=== PATIENT | female | born 1945 | race Caucasian/White ===

== ENCOUNTER 2017-12-14 16:10 | Inpatient (IN) | payer MEDICARE ==
[2017-12-14] MEDS ORDERED: ONDANSETRON 4 MG/2 ML VIAL IVP STA (16:39)
[2017-12-14] MEDS ORDERED: HYDROmorphone 2 MG/ML 1 ML SYRINGE IVP STA (16:39)
[2017-12-14] MEDS ORDERED: SODIUM CHLORIDE 0.9% 1,000 ML IV STA ×2 (16:39→19:48)
[2017-12-14] MEDS ORDERED: ACETAMINOPHEN IV (For NPO) 1,000 MG in EMPTY BAG 1 BAG IVPB STA (16:44)
--- NOTE | 2017-12-14 16:47 | ED ---
General Adult HPI - General Chief complaint: Back Pain/Injury Stated complaint: Back Pain Time Seen by Provider: 12/14/17 16:30 Source: patient, family, RN notes reviewed, old records reviewed Mode of arrival: wheelchair Limitations: no limitations - History of Present Illness Initial comments: Patient's a 72-year-old female who presents emergency room today with a chief complaint of back pain radiating around to the abdomen. She states that it started earlier today. She does admit that last night she had increased urinary frequency and pressure. She describes it as a sharp pain. Currently rates it 08/14. Does admit to some symptoms of nausea vomiting. States this is different from pain that she's had in the past. Patient denies any other complaints or symptoms. Patient denies any recent fever, chills, shortness of breath, chest pain, back pain, abdominal pain, nausea or vomiting, numbness or tingling, dysuria or hematuria, constipation or diarrhea, headaches or visual changes, or any other complaints. - Related Data Previous Rx's Medication Instructions Recorded ALPRAZolam [Xanax] 0.25 mg PO TID PRN tab 12/01/17 Aspirin 325 mg PO DAILY tab 12/01/17 Lisinopril [Zestril] 20 mg PO DAILY #30 tab 12/01/17 amLODIPine [Norvasc] 5 mg PO DAILY #30 tab 12/01/17 Amoxic-Pot Clav 875-125Mg 1 tab PO Q12HR #14 tablet 12/18/17 [Augmentin 875-125] glipiZIDE [Glucotrol] 5 mg PO AC-BID #60 tab 12/18/17 Allergies Allergy/AdvReac Type Severity Reaction Status Date / Time No Known Allergies Allergy Verified 12/14/17 16:29 Review of Systems ROS Statement: Those systems with pertinent positive or pertinent negative responses have been documented in the HPI. ROS Other: All systems not noted in ROS Statement are negative. Past Medical History Past Medical History: Diabetes Mellitus, Osteoarthritis (OA) Additional Past Medical History / Comment(s): NIDDM type II, arthritis bilateral knees. History of Any Multi-Drug Resistant Organisms: None Reported Past Surgical History: Cholecystectomy Additional Past Surgical History / Comment(s): Bilateral cataract removals with lens implants. Past Anesthesia/Blood Transfusion Reactions: No Reported Reaction Past Psychological History: No Psychological Hx Reported Smoking Status: Never smoker Past Alcohol Use History: None Reported Past Drug Use History: None Reported - Past Family History Father Family Medical History: Vascular Disorder Additional Family Medical History / Comment(s): Father from a ruptured cerebral aneurysm in his 80s. Mother Family Medical History: CVA/TIA Additional Family Medical History / Comment(s): Mother is 94 yrs old. Brother(s) Family Medical History: No Reported History Sister(s) Family Medical History: No Reported History Daughter(s) Family Medical History: Diabetes Mellitus Son(s) History Unknown: Yes (Diverticular disease) General Exam - General Exam Comments Initial Comments: General: The patient is awake and alert, in moderate distress. Eye: Pupils are equal, round and reactive to light, extra-ocular movements are intact. No nystagmus. There is normal conjunctiva bilaterally. No signs of icterus. Ears, nose, mouth and throat: There are moist mucous membranes and no oral lesions. Neck: The neck is supple, there is no tenderness or JVD. Cardiovascular: There is a regular rate and rhythm. No murmur, rub or gallop is appreciated. Respiratory: Lungs are clear to auscultation, respirations are non-labored, breath sounds are equal. No wheezes, stridor, rales, or rhonchi. Gastrointestinal: Soft, non-distended. Tender palpation in the right lower quadrant and epigastric. Tender right CVA. No rebound tenderness. No guarding. Musculoskeletal: Normal ROM, no tenderness. Strength 5/5. Sensation intact. Pulses equal bilaterally 2+. Neurological: A&O x 3. CN II-XII intact, There are no obvious motor or sensory deficits. Coordination appears grossly intact. Speech is normal. Skin: Skin is warm and dry and no rashes or lesions are noted. Psychiatric: Cooperative, appropriate mood & affect, normal judgment. Limitations: no limitations Course Vital Signs 12/14/17 12/14/17 12/14/17 16:20 17:23 18:30 Temperature 101.0 F H 99.0 F Pulse Rate 118 H 102 H 99 Respiratory 24 22 20 Rate Blood Pressure 134/75 146/64 146/55 Blood Pressure [Left Arm] O2 Sat by Pulse 100 97 99 Oximetry 12/14/17 12/14/17 12/14/17 19:39 20:30 21:12 Temperature 98.0 F 98.9 F 97.9 F Pulse Rate 98 98 Respiratory 20 20 16 Rate Blood Pressure 128/60 130/59 Blood Pressure 112/55 [Left Arm] O2 Sat by Pulse 98 97 97 Oximetry 12/14/17 12/14/17 21:30 21:42 Temperature 98.6 F Pulse Rate 92 96 Respiratory 20 Rate Blood Pressure 128/63 Blood Pressure [Left Arm] O2 Sat by Pulse 97 Oximetry EKG Findings - EKG Comments: EKG Findings:: EKG performed at 1824: Shows normal sinus rhythm at 99 bpm with occasional PVCs. RI interval 198. QRS 72. QT/QTC 354/454. No acute ST changes. Medical Decision Making - Medical Decision Making Patient labs reviewed does show 17,000 white count with elevated lactic acid. Elevation of liver enzymes, alk phos and total bilirubin. Patient's CT of the abdomen and pelvis with contrast revealing a dilated common bile duct. Patient does have history of cholecystectomy. Patient will be admitted and started on IV antibiotics. - Lab Data Result diagrams: 12/18/17 08:50 12/18/17 08:50 Lab Results 12/14/17 12/14/17 12/14/17 Range/Units 17:05 17:05 17:05 WBC 17.7 H (3.8-10.6) k/uL RBC 5.05 (3.80-5.40) m/uL Hgb 14.4 (11.4-16.0) gm/dL Hct 45.6 (34.0-46.0) % MCV 90.5 (80.0-100.0) fL MCH 28.5 (25.0-35.0) pg MCHC 31.5 (31.0-37.0) g/dL RDW 13.1 (11.5-15.5) % Plt Count 231 (150-450) k/uL Neutrophils % 94 % Lymphocytes % 4 % Monocytes % 1 % Eosinophils % 1 % Basophils % 0 % Neutrophils # 16.6 H (1.3-7.7) k/uL Lymphocytes # 0.7 L (1.0-4.8) k/uL Monocytes # 0.3 (0-1.0) k/uL Eosinophils # 0.2 (0-0.7) k/uL Basophils # 0.1 (0-0.2) k/uL PT (9.0-12.0) sec INR (<1.2) APTT (22.0-30.0) sec Sodium 138 (137-145) mmol/L Potassium 3.9 (3.5-5.1) mmol/L Chloride 101 (98-107) mmol/L Carbon Dioxide 22 (22-30) mmol/L Anion Gap 15 mmol/L BUN 13 (7-17) mg/dL Creatinine 0.70 (0.52-1.04) mg/dL Est GFR (MDRD) Af Amer >60 (>60 ml/min/1.73 sqM) Est GFR (MDRD) Non-Af >60 (>60 ml/min/1.73 sqM) Glucose 238 H (74-99) mg/dL Lactic Ac Sepsis Rflx Plasma Lactic Acid Joe 4.2 H* (0.7-2.0) mmol/L Calcium 10.0 (8.4-10.2) mg/dL Magnesium (1.6-2.3) mg/dL Total Bilirubin 5.6 H (0.2-1.3) mg/dL Conjugated Bilirubin (0.0-0.3) mg/dL Unconjugated Bilirubin (0.0-1.1) mg/dL Delta Bilirubin (0.0-0.2) mg/dL AST 241 H (14-36) U/L ALT 254 H (9-52) U/L Alkaline Phosphatase 177 H (38-126) U/L Total Protein 7.1 (6.3-8.2) g/dL Albumin 4.1 (3.5-5.0) g/dL Urine Color Urine Appearance (Clear) Urine pH (5.0-8.0) Ur Specific [place] (1.001-1.035) Urine Protein (Negative) Urine Glucose (UA) (Negative) Urine Ketones (Negative) Urine Blood (Negative) Urine Nitrite (Negative) Urine Bilirubin (Negative) Urine Urobilinogen (<2.0) mg/dL Ur Leukocyte Esterase (Negative) Urine RBC (0-5) /hpf Urine WBC (0-5) /hpf Ur Squamous Epith Cells (0-4) /hpf Urine Mucus (None) /hpf 12/14/17 12/14/17 12/14/17 Range/Units 17:05 17:05 17:05 WBC (3.8-10.6) k/uL RBC (3.80-5.40) m/uL Hgb (11.4-16.0) gm/dL Hct (34.0-46.0) % MCV (80.0-100.0) fL MCH (25.0-35.0) pg MCHC (31.0-37.0) g/dL RDW (11.5-15.5) % Plt Count (150-450) k/uL Neutrophils % % Lymphocytes % % Monocytes % % Eosinophils % % Basophils % % Neutrophils # (1.3-7.7) k/uL Lymphocytes # (1.0-4.8) k/uL Monocytes # (0-1.0) k/uL Eosinophils # (0-0.7) k/uL Basophils # (0-0.2) k/uL PT 12.3 H (9.0-12.0) sec INR 1.3 H (<1.2) APTT 22.1 (22.0-30.0) sec Sodium (137-145) mmol/L Potassium (3.5-5.1) mmol/L Chloride (98-107) mmol/L Carbon Dioxide (22-30) mmol/L Anion Gap mmol/L BUN (7-17) mg/dL Creatinine (0.52-1.04) mg/dL Est GFR (MDRD) Af Amer (>60 ml/min/1.73 sqM) Est GFR (MDRD) Non-Af (>60 ml/min/1.73 sqM) Glucose (74-99) mg/dL Lactic Ac Sepsis Rflx Plasma Lactic Acid Joe (0.7-2.0) mmol/L Calcium (8.4-10.2) mg/dL Magnesium 1.1 L (1.6-2.3) mg/dL Total Bilirubin (0.2-1.3) mg/dL Conjugated Bilirubin (0.0-0.3) mg/dL Unconjugated Bilirubin (0.0-1.1) mg/dL Delta Bilirubin (0.0-0.2) mg/dL AST (14-36) U/L ALT (9-52) U/L Alkaline Phosphatase (38-126) U/L Total Protein (6.3-8.2) g/dL Albumin (3.5-5.0) g/dL Urine Color Dark Yellow Urine Appearance Clear (Clear) Urine pH 6.0 (5.0-8.0) Ur Specific [place] 1.025 (1.001-1.035) Urine Protein 1+ H (Negative) Urine Glucose (UA) 4+ H (Negative) Urine Ketones 1+ H (Negative) Urine Blood Trace H (Negative) Urine Nitrite Negative (Negative) Urine Bilirubin 2+ H (Negative) Urine Urobilinogen 4.0 (<2.0) mg/dL Ur Leukocyte Esterase Negative (Negative) Urine RBC 1 (0-5) /hpf Urine WBC 3 (0-5) /hpf Ur Squamous Epith Cells 4 (0-4) /hpf Urine Mucus Rare H (None) /hpf 12/14/17 12/14/17 Range/Units 17:35 19:30 WBC (3.8-10.6) k/uL RBC (3.80-5.40) m/uL Hgb (11.4-16.0) gm/dL Hct (34.0-46.0) % MCV (80.0-100.0) fL MCH (25.0-35.0) pg MCHC (31.0-37.0) g/dL RDW (11.5-15.5) % Plt Count (150-450) k/uL Neutrophils % % Lymphocytes % % Monocytes % % Eosinophils % % Basophils % % Neutrophils # (1.3-7.7) k/uL Lymphocytes # (1.0-4.8) k/uL Monocytes # (0-1.0) k/uL Eosinophils # (0-0.7) k/uL Basophils # (0-0.2) k/uL PT (9.0-12.0) sec INR (<1.2) APTT (22.0-30.0) sec Sodium (137-145) mmol/L Potassium (3.5-5.1) mmol/L Chloride (98-107) mmol/L Carbon Dioxide (22-30) mmol/L Anion Gap mmol/L BUN (7-17) mg/dL Creatinine (0.52-1.04) mg/dL Est GFR (MDRD) Af Amer (>60 ml/min/1.73 sqM) Est GFR (MDRD) Non-Af (>60 ml/min/1.73 sqM) Glucose (74-99) mg/dL Lactic Ac Sepsis Rflx Y Plasma Lactic Acid Joe (0.7-2.0) mmol/L Calcium (8.4-10.2) mg/dL Magnesium (1.6-2.3) mg/dL Total Bilirubin 5.6 H (0.2-1.3) mg/dL Conjugated Bilirubin 2.5 H (0.0-0.3) mg/dL Unconjugated Bilirubin 1.7 H (0.0-1.1) mg/dL Delta Bilirubin 1.4 H (0.0-0.2) mg/dL AST (14-36) U/L ALT (9-52) U/L Alkaline Phosphatase (38-126) U/L Total Protein (6.3-8.2) g/dL Albumin (3.5-5.0) g/dL Urine Color Urine Appearance (Clear) Urine pH (5.0-8.0) Ur Specific [place] (1.001-1.035) Urine Protein (Negative) Urine Glucose (UA) (Negative) Urine Ketones (Negative) Urine Blood (Negative) Urine Nitrite (Negative) Urine Bilirubin (Negative) Urine Urobilinogen (<2.0) mg/dL Ur Leukocyte Esterase (Negative) Urine RBC (0-5) /hpf Urine WBC (0-5) /hpf Ur Squamous Epith Cells (0-4) /hpf Urine Mucus (None) /hpf Disposition Clinical Impression: Dilated bile duct, Ascending cholangitis, Sepsis Disposition: ADMITTED IP TO THIS HOSP Condition: Good Time of Disposition: 19:34
[2017-12-14 17:18] LABS: Basophils # (A) 0.1 k/uL (0-0.2); Basophils % (A) 0 %; Eosinophils # (A) 0.2 k/uL (0-0.7); Eosinophils % (A) 1 %; HCT 45.6 % (34.0-46.0); HGB 14.4 gm/dL (11.4-16.0); Lymphocytes # (A) 0.7 k/uL (1.0-4.8); Lymphocytes % (A) 4 %; MCH 28.5 pg (25.0-35.0); MCHC 31.5 g/dL (31.0-37.0); MCV 90.5 fL (80.0-100.0); Mean Platelet Volume 7.3; Monocytes # (A) 0.3 k/uL (0-1.0); Monocytes % (A) 1 %; Neutrophils # (A) 16.6 k/uL (1.3-7.7); Neutrophils % (A) 94 %; Platelet Count 231 k/uL (150-450); RBC 5.05 m/uL (3.80-5.40); RDW 13.1 % (11.5-15.5); WBC 17.7 k/uL (3.8-10.6)
[2017-12-14 17:20] LABS: Appearance,Urine Clear (Clear); Bilirubin,Urine 2+ (Negative); Blood,Urine Trace (Negative); Color,Urine Dark Yellow; Glucose,Urine (UA) 4+ (Negative); Ketones,Urine 1+ (Negative); Leukocyte Esterase,Urine Negative (Negative); Mucus,Urine Rare /hpf; Nitrite,Urine Negative (Negative); Protein,Urine 1+ (Negative); RBC,Urine 1 /hpf (0-5); Specific Gravity,Urine 1.025 (1.001-1.035); Squamous Epithelial Cell,Urine 4 /hpf (0-4); WBC,Urine 3 /hpf (0-5)
[2017-12-14] MEDS ORDERED: RX INFO: IV CONTRAST WAS GIVEN 1 EACH MISC MISCELLANE PRN (17:27)
[2017-12-14 17:28] LABS: INR 1.3 (<1.2); Partial Thromboplastin Time 22.1 sec (22.0-30.0); Prothrombin Time 12.3 sec (9.0-12.0)
[2017-12-14 17:29] LABS: ALT 254 U/L (9-52); AST 241 U/L (14-36); Albumin 4.1 g/dL (3.5-5.0); Alkaline Phosphatase 177 U/L (38-126); Anion Gap 15 mmol/L; Blood Urea Nitrogen 13 mg/dL (7-17); Carbon Dioxide 22 mmol/L (22-30); Chloride 101 mmol/L (98-107); Glucose 238 mg/dL (74-99); Potassium 3.9 mmol/L (3.5-5.1); Sodium 138 mmol/L (137-145); Total Bilirubin 5.6 mg/dL (0.2-1.3); Total Protein 7.1 g/dL (6.3-8.2)
--- NOTE | 2017-12-14 18:54 | CT ---
EXAMINATION TYPE: CT abdomen pelvis w con DATE OF EXAM: 12/14/2017 COMPARISON: NONE INDICATION: Patient complains of RUQ pain. DLP: 828.3 mGycm, Automated exposure control for dose reduction was used. CONTRAST: 100 mL of Omnipaque 300. Study performed without Oral Contrast TECHNIQUE: Axial images were obtained from above the diaphragm to the pubic rami in the axial plane a t 5 mm thick sections. Reconstructed images are reviewed on the computer in the coronal plane. FINDINGS: Limited CT sections are obtained the lung bases. The lung bases are clear. CT ABDOMEN: Liver: Normal Spleen: Normal Pancreas: Mildly atrophic. Adrenal glands: The adrenal glands are normal. Gallbladder: Surgically absent. The pancreatic duct is dilated at the head of the pancreas and measur es 1.4 cm. Normal less than 1.0 cm. No underlying mass is identified. Pancreatic duct appears normal. Kidneys: No masses are evident. No hydronephrosis is present. No cysts are present. Delayed images were obtained through the kidneys, which remain unremarkable. Aorta: Vascular calcification is within the aorta. Inferior vena cava: Normal. CT PELVIS: Loops of bowel within the abdomen and pelvis are normal. There are loops of bowel which are incom pletely distended or lack oral contrast limiting their evaluation. Appendix: Normal as visualized. Urinary bladder: Normal. Genitourinary structures: Uterus is normal. Adnexal regions are normal. No free fluid is within the p jesse. Osseous structures: No suspicious lytic or sclerotic lesions. Facet degenerative changes are within t he lumbar spine. IMPRESSIONS: 1. Prominent common bile duct into the head of the pancreas. No underlying mass is identified. Consi edouard ERCP for additional evaluation. 2. CT abdomen pelvis otherwise appears unremarkable.
[2017-12-14] MEDS ORDERED: PIPERACILLIN-TAZOBACTAM 3.375 GM in DEXTROSE/WATER 1 50ML.BAG IVPB STA (19:19)
[2017-12-14] MEDS ORDERED: VANCOMYCIN IV PER PHARMACY 1 EACH MISC MISCELLANE PRN (19:43)
[2017-12-14] MEDS ORDERED: VANCOMYCIN 1,500 MG in SODIUM CHLORIDE 0.9% 250 ML IVPB STA (19:43)
[2017-12-14 19:45] LABS: Bilirubin, Conjugated 2.5 mg/dL (0.0-0.3); Bilirubin, Delta 1.4 mg/dL (0.0-0.2); Bilirubin,Unconjugated 1.7 mg/dL (0.0-1.1); Total Bilirubin 5.6 mg/dL (0.2-1.3)
[2017-12-14] MEDS ORDERED: HYDROmorphone 0.5 MG/0.5 ML SYRINGE IVP PRN (20:06)
[2017-12-14] MEDS ORDERED: NALOXONE 0.4 MG/ML 1 ML VIAL IV PRN (20:06)
[2017-12-14] MEDS ORDERED: SODIUM CHLORIDE 0.9% 1,000 ML IV SCH (20:15)
--- NOTE | 2017-12-14 20:17 | ED ---
Medical Decision Making - Medical Decision Making 72-year-old female presenting with fever, tachycardia, epigastric and right flank pain. Patient is noted to have a lactic acidosis 4.3, elevated white blood cell count 17.7, total bili is elevated along with AST, ALT, and alkaline phosphatase. CT shows a prominent biliary duct and pancreatic duct at 1.4 cm. Patient is started on broad-spectrum antibiotics including Zosyn and vancomycin. Case is discussed with Dr. Abdullahi, from gastroenterology, there is concern for ascending cholangitis. Patient will likely undergo ERCP in the morning. Case also discussed with pulmonary locomotive electrician Dr. Rosado will accept admission to the ICU for concern for decompensation. - Lab Data Result diagrams: 12/14/17 17:05 12/14/17 17:05 Lab Results 12/14/17 12/14/17 12/14/17 Range/Units 17:05 17:05 17:05 WBC 17.7 H (3.8-10.6) k/uL RBC 5.05 (3.80-5.40) m/uL Hgb 14.4 (11.4-16.0) gm/dL Hct 45.6 (34.0-46.0) % MCV 90.5 (80.0-100.0) fL MCH 28.5 (25.0-35.0) pg MCHC 31.5 (31.0-37.0) g/dL RDW 13.1 (11.5-15.5) % Plt Count 231 (150-450) k/uL Neutrophils % 94 % Lymphocytes % 4 % Monocytes % 1 % Eosinophils % 1 % Basophils % 0 % Neutrophils # 16.6 H (1.3-7.7) k/uL Lymphocytes # 0.7 L (1.0-4.8) k/uL Monocytes # 0.3 (0-1.0) k/uL Eosinophils # 0.2 (0-0.7) k/uL Basophils # 0.1 (0-0.2) k/uL PT (9.0-12.0) sec INR (<1.2) APTT (22.0-30.0) sec Sodium 138 (137-145) mmol/L Potassium 3.9 (3.5-5.1) mmol/L Chloride 101 (98-107) mmol/L Carbon Dioxide 22 (22-30) mmol/L Anion Gap 15 mmol/L BUN 13 (7-17) mg/dL Creatinine 0.70 (0.52-1.04) mg/dL Est GFR (MDRD) Af Amer >60 (>60 ml/min/1.73 sqM) Est GFR (MDRD) Non-Af >60 (>60 ml/min/1.73 sqM) Glucose 238 H (74-99) mg/dL Plasma Lactic Acid Joe 4.2 H* (0.7-2.0) mmol/L Calcium 10.0 (8.4-10.2) mg/dL Magnesium (1.6-2.3) mg/dL Total Bilirubin 5.6 H (0.2-1.3) mg/dL Conjugated Bilirubin (0.0-0.3) mg/dL Unconjugated Bilirubin (0.0-1.1) mg/dL Delta Bilirubin (0.0-0.2) mg/dL AST 241 H (14-36) U/L ALT 254 H (9-52) U/L Alkaline Phosphatase 177 H (38-126) U/L Total Protein 7.1 (6.3-8.2) g/dL Albumin 4.1 (3.5-5.0) g/dL Urine Color Urine Appearance (Clear) Urine pH (5.0-8.0) Ur Specific [place] (1.001-1.035) Urine Protein (Negative) Urine Glucose (UA) (Negative) Urine Ketones (Negative) Urine Blood (Negative) Urine Nitrite (Negative) Urine Bilirubin (Negative) Urine Urobilinogen (<2.0) mg/dL Ur Leukocyte Esterase (Negative) Urine RBC (0-5) /hpf Urine WBC (0-5) /hpf Ur Squamous Epith Cells (0-4) /hpf Urine Mucus (None) /hpf 12/14/17 12/14/17 12/14/17 Range/Units 17:05 17:05 17:05 WBC (3.8-10.6) k/uL RBC (3.80-5.40) m/uL Hgb (11.4-16.0) gm/dL Hct (34.0-46.0) % MCV (80.0-100.0) fL MCH (25.0-35.0) pg MCHC (31.0-37.0) g/dL RDW (11.5-15.5) % Plt Count (150-450) k/uL Neutrophils % % Lymphocytes % % Monocytes % % Eosinophils % % Basophils % % Neutrophils # (1.3-7.7) k/uL Lymphocytes # (1.0-4.8) k/uL Monocytes # (0-1.0) k/uL Eosinophils # (0-0.7) k/uL Basophils # (0-0.2) k/uL PT 12.3 H (9.0-12.0) sec INR 1.3 H (<1.2) APTT 22.1 (22.0-30.0) sec Sodium (137-145) mmol/L Potassium (3.5-5.1) mmol/L Chloride (98-107) mmol/L Carbon Dioxide (22-30) mmol/L Anion Gap mmol/L BUN (7-17) mg/dL Creatinine (0.52-1.04) mg/dL Est GFR (MDRD) Af Amer (>60 ml/min/1.73 sqM) Est GFR (MDRD) Non-Af (>60 ml/min/1.73 sqM) Glucose (74-99) mg/dL Plasma Lactic Acid Joe (0.7-2.0) mmol/L Calcium (8.4-10.2) mg/dL Magnesium 1.1 L (1.6-2.3) mg/dL Total Bilirubin (0.2-1.3) mg/dL Conjugated Bilirubin (0.0-0.3) mg/dL Unconjugated Bilirubin (0.0-1.1) mg/dL Delta Bilirubin (0.0-0.2) mg/dL AST (14-36) U/L ALT (9-52) U/L Alkaline Phosphatase (38-126) U/L Total Protein (6.3-8.2) g/dL Albumin (3.5-5.0) g/dL Urine Color Dark Yellow Urine Appearance Clear (Clear) Urine pH 6.0 (5.0-8.0) Ur Specific [place] 1.025 (1.001-1.035) Urine Protein 1+ H (Negative) Urine Glucose (UA) 4+ H (Negative) Urine Ketones 1+ H (Negative) Urine Blood Trace H (Negative) Urine Nitrite Negative (Negative) Urine Bilirubin 2+ H (Negative) Urine Urobilinogen 4.0 (<2.0) mg/dL Ur Leukocyte Esterase Negative (Negative) Urine RBC 1 (0-5) /hpf Urine WBC 3 (0-5) /hpf Ur Squamous Epith Cells 4 (0-4) /hpf Urine Mucus Rare H (None) /hpf 12/14/17 Range/Units 19:30 WBC (3.8-10.6) k/uL RBC (3.80-5.40) m/uL Hgb (11.4-16.0) gm/dL Hct (34.0-46.0) % MCV (80.0-100.0) fL MCH (25.0-35.0) pg MCHC (31.0-37.0) g/dL RDW (11.5-15.5) % Plt Count (150-450) k/uL Neutrophils % % Lymphocytes % % Monocytes % % Eosinophils % % Basophils % % Neutrophils # (1.3-7.7) k/uL Lymphocytes # (1.0-4.8) k/uL Monocytes # (0-1.0) k/uL Eosinophils # (0-0.7) k/uL Basophils # (0-0.2) k/uL PT (9.0-12.0) sec INR (<1.2) APTT (22.0-30.0) sec Sodium (137-145) mmol/L Potassium (3.5-5.1) mmol/L Chloride (98-107) mmol/L Carbon Dioxide (22-30) mmol/L Anion Gap mmol/L BUN (7-17) mg/dL Creatinine (0.52-1.04) mg/dL Est GFR (MDRD) Af Amer (>60 ml/min/1.73 sqM) Est GFR (MDRD) Non-Af (>60 ml/min/1.73 sqM) Glucose (74-99) mg/dL Plasma Lactic Acid Joe (0.7-2.0) mmol/L Calcium (8.4-10.2) mg/dL Magnesium (1.6-2.3) mg/dL Total Bilirubin 5.6 H (0.2-1.3) mg/dL Conjugated Bilirubin 2.5 H (0.0-0.3) mg/dL Unconjugated Bilirubin 1.7 H (0.0-1.1) mg/dL Delta Bilirubin 1.4 H (0.0-0.2) mg/dL AST (14-36) U/L ALT (9-52) U/L Alkaline Phosphatase (38-126) U/L Total Protein (6.3-8.2) g/dL Albumin (3.5-5.0) g/dL Urine Color Urine Appearance (Clear) Urine pH (5.0-8.0) Ur Specific [place] (1.001-1.035) Urine Protein (Negative) Urine Glucose (UA) (Negative) Urine Ketones (Negative) Urine Blood (Negative) Urine Nitrite (Negative) Urine Bilirubin (Negative) Urine Urobilinogen (<2.0) mg/dL Ur Leukocyte Esterase (Negative) Urine RBC (0-5) /hpf Urine WBC (0-5) /hpf Ur Squamous Epith Cells (0-4) /hpf Urine Mucus (None) /hpf Critical Care Time Critical Care Time: Yes Total Critical Care Time: 35 Disposition Clinical Impression: Dilated bile duct, Ascending cholangitis, Sepsis Disposition: ADMITTED IP TO THIS [facility] Condition: Serious Referrals: Dallas Durán MD [Primary Care Provider] - 1-2 days Decision to Admit Reason: Admit from EC Decision Date: 12/14/17 Decision Time: 20:16
[2017-12-14 21:48] LABS: Glucose,Whole Blood 248 mg/dL (75-99)
[2017-12-14 22:30] VITALS: BMI 28.8
[2017-12-15 02:18] LABS: Glucose,Whole Blood 222 mg/dL (75-99)
[2017-12-15] MEDS ORDERED: ALPRAZolam 0.25 MG TAB PO PRN (03:10)
[2017-12-15] MEDS: PIPERACILLIN-TAZOBACTAM 3.375 GM in DEXTROSE/WATER 1 50ML.BAG IVPB SCH ×3 (04:24→21:06)
[2017-12-15 04:39] LABS: Basophils # (A) 0.1 k/uL (0-0.2); Basophils % (A) 0 %; Eosinophils # (A) 0.1 k/uL (0-0.7); Eosinophils % (A) 0 %; HCT 38.8 % (34.0-46.0); HGB 12.6 gm/dL (11.4-16.0); Lymphocytes # (A) 1.2 k/uL (1.0-4.8); Lymphocytes % (A) 7 %; MCHC 32.6 g/dL (31.0-37.0); MCV 88.9 fL (80.0-100.0); Mean Platelet Volume 6.9; Monocytes # (A) 0.5 k/uL (0-1.0); Monocytes % (A) 3 %; Neutrophils # (A) 14.6 k/uL (1.3-7.7); Neutrophils % (A) 88 %; Platelet Count 197 k/uL (150-450); RBC 4.36 m/uL (3.80-5.40); RDW 13.2 % (11.5-15.5); WBC 16.5 k/uL (3.8-10.6)
[2017-12-15 04:47] LABS: INR 1.4 (<1.2); Prothrombin Time 13.1 sec (9.0-12.0)
[2017-12-15 04:48] LABS: ALT 189 U/L (9-52); AST 123 U/L (14-36); Albumin 3.3 g/dL (3.5-5.0); Alkaline Phosphatase 114 U/L (38-126); Anion Gap 13 mmol/L; Blood Urea Nitrogen 14 mg/dL (7-17); Calcium 8.7 mg/dL (8.4-10.2); Carbon Dioxide 23 mmol/L (22-30); Chloride 104 mmol/L (98-107); Glucose 201 mg/dL (74-99); Magnesium 1.3 mg/dL (1.6-2.3); Phosphorus 4.6 mg/dL (2.5-4.5); Potassium 3.7 mmol/L (3.5-5.1); Sodium 140 mmol/L (137-145); Total Bilirubin 4.8 mg/dL (0.2-1.3)
[2017-12-15] MEDS ORDERED: Potassium Replacement Protocol 1 EACH MISC MISCELLANE PRN (05:16)
[2017-12-15] MEDS ORDERED: Magnesium Replacement Protocol 1 EACH MISC MISCELLANE PRN (05:16)
[2017-12-15] MEDS ORDERED: POTASSIUM CHLORIDE ER 20 MEQ TAB.ER PO SCH ×2 (06:00→23:00)
[2017-12-15] MEDS: MAGNESIUM SULFATE-D5W PMX 1 GM in DEXTROSE/WATER 1 100ML.BAG IVPB SCH ×5 (06:05→23:48)
--- NOTE | 2017-12-15 07:26 | XR ---
EXAMINATION TYPE: XR chest 1V DATE OF EXAM: 12/15/2017 HISTORY: ICU Admission. REFERENCE: Previous study dated 11/30/2017. FINDINGS: The heart is mildly enlarged. The lungs are clear. Pleural spaces are clear. IMPRESSION: MILD CARDIOMEGALY.
[2017-12-15 07:27] LABS: Glucose,Whole Blood 166 mg/dL (75-99)
[2017-12-15] MEDS: INSULIN ASPART 100 UNIT/ML 1 ML 10 ML VIAL SQ SCH ×4 (09:04→21:06)
[2017-12-15] MEDS: ASPIRIN 325 MG TAB PO SCH (09:24)
[2017-12-15] MEDS: amLODIPine 5 MG TAB PO SCH (09:24)
[2017-12-15] MEDS: FAMOTIDINE 20 MG TAB PO SCH ×2 (09:24→20:25)
[2017-12-15] MEDS ORDERED: PHYTONADIONE ORAL 5 MG/5 ML ORAL.SYRG PO STA (09:27)
--- NOTE | 2017-12-15 09:29 | CONS ---
CONSULTATION DATE OF CONSULTATION: December 15, 2017. REQUESTING PHYSICIAN: Dr. Durán. REASON FOR CONSULTATION: Abdominal pain, elevated LFTs. HISTORY OF PRESENT ILLNESS: The patient is a 72-year-old pleasant white female admitted to the hospital when she presented with acute onset of severe epigastric and right flank pain that started yesterday afternoon. The pain continued to progressively get worse and became nauseated, came to the emergency room and subsequently admitted to the hospital admitted to the intensive care unit. Apparently while in the ER, she was tachycardic, somewhat hypotensive. She has a remote history of cholecystectomy approximately 20 years ago for symptomatic gallstones. In the ER, she was noted to have leukocytosis as well as lactic acidosis and elevated LFTs as well as bilirubin up to 5.3. She did have a CT of the abdomen and pelvis done that showed dilated common bile duct as well as pancreatic duct measuring 1.4 cm in diameter, but no obvious stones identified. Because of the suspicion for ascending cholangitis, the patient was started on broad-spectrum antibiotics with Zosyn and vancomycin. She was admitted to the intensive care unit and this morning feels much better. In fact, the abdominal pain has completely resolved. She has no nausea, vomiting. No further episodes of fever. PAST MEDICAL HISTORY: Significant for diabetes mellitus, hypertension, hyperlipidemia. MEDICATIONS AT HOME: Include Xanax, Lipitor, aspirin, Zestril, Norvasc, metformin. ALLERGIES: No known drug allergies. SOCIAL HISTORY: No smoking or alcohol use. FAMILY HISTORY: Unremarkable. PAST SURGICAL HISTORY: Cholecystectomy 20 years ago for symptomatic gallstones. REVIEW OF SYSTEMS: Cardiopulmonary: Denies any chest pain, shortness of breath. Genitourinary: No dysuria or hematuria. Musculoskeletal unremarkable. Skin unremarkable. Endocrine: Unremarkable. Psychiatric: Unremarkable. Neurological: Unremarkable. ENT/Vision: Unremarkable. Constitutional: No recent weight loss. No fever, chills or night sweats. PHYSICAL EXAMINATION: She appears comfortable. No apparent distress. VITAL SIGNS: Stable. Blood pressure is 110-82, pulse is 66, afebrile. T-max was 100.3. HEENT examination unremarkable. Conjunctivae pink. Sclerae are slightly icteric. Oral cavity no lesions. Neck: No jugular venous distention or lymph node enlargement. Chest was clear to auscultation. HEART: Regular rate and rhythm. ABDOMEN: Soft, nontender, nondistended. Liver and spleen not palpable. Bowel sounds are positive. No organomegaly. Extremities: No pedal edema. Skin no rashes. Neuro she is alert and oriented x3. No focal deficits. LABS: Done yesterday WBC was 17.7 and today is 16.5. PT is 13.1 and an INR of 1.4. T-bili was 5.6 today, it is down to 4.8, AST 241, ALT 254, alkaline phosphatase 177. Today AST is down to 123, ALT is 189, and alkaline phosphatase is 114. Blood cultures are pending. IMPRESSION: The patient presents to hospital with acute onset of severe right upper quadrant epigastric pain radiating to the back and right flank pain since yesterday associated with some nausea, vomiting, and noted to have fever chills with leukocytosis and elevated LFTs as well as bilirubin all indicative of ascending cholangitis, possibly from retained common bile duct stone. CT of the abdomen showed evidence of dilated common bile duct and pancreatic duct, but no obvious stones noted. The patient is status post gallbladder surgery 20 years ago for symptomatic gallstones. She is presently on Zosyn and vancomycin and clinically doing very stable. RECOMMENDATIONS: 1. Continue broad-spectrum antibiotics. 2. Start on clear liquid diet. 3. Since INR is slightly prolonged, we will give her vitamin K. 4. We will plan an ERCP in the next 24-48 hours based on her overall clinical condition and clinical course. This was discussed with the patient and she is agreeable with the plan. Thank you for this consultation. MMODL / IJN: [id number] /
[2017-12-15] MEDS: ACETAMINOPHEN TAB 325 MG TAB PO PRN (11:07)
[2017-12-15] MEDS: VANCOMYCIN 1,500 MG in SODIUM CHLORIDE 0.9% 250 ML IVPB SCH (11:08)
--- NOTE | 2017-12-15 12:26 | P.CNPUL ---
History of Present Illness Consult date: 12/15/17 Requesting physician: Rhona Nettles Reason for consult: other (Critical care management) Chief complaint: Right upper quadrant pain History of present illness: This is a very pleasant 72-year-old female patient who follows with Dr. Durán as her primary care physician. She has a history of diabetes mellitus, hypertension, hyperlipidemia, mild global hypokinesia with an ejection fraction 45-50%, nonspecific hilar lymphadenopathy being followed in the outpatient setting and previous cholecystectomy. She presented to the emergency room yesterday with complaints of right upper quadrant pain, tachycardia and fever. Temperature 101.0. She was found to have a lactic acidosis of 4.3 and a white count of 17.7, AST 241, ALT 254. There was concern for ascending cholangitis placed in the intensive care unit for the same. We are seeing her today in consultation. She is currently sitting up in bed at awake and alert in no acute distress. Her right-sided chest discomfort has improved. She has no pulmonary complaints. Chest x-ray was clear. Maintaining good O2 saturations in the 90s on room air. Current white count 16.5. She's been afebrile. Hemodynamically stable. She has been seen and evaluated by GI services and the plan is for ERCP on 12/17/2017 for concerns regarding possible retained stone in the common bile duct. Review of Systems 14 point review of system was conducted. All negative other than as mentioned in the HPI. Past Medical History Past Medical History: Diabetes Mellitus, Osteoarthritis (OA) Additional Past Medical History / Comment(s): NIDDM type II, arthritis bilateral knees. History of Any Multi-Drug Resistant Organisms: None Reported Past Surgical History: Cholecystectomy Additional Past Surgical History / Comment(s): Bilateral cataract removals with lens implants. Past Anesthesia/Blood Transfusion Reactions: No Reported Reaction Additional Past Anesthesia/Blood Transfusion Reaction / Comment(s): No transfusion history Past Psychological History: Anxiety Additional Psychological History / Comment(s): Pt states her spouse a few months ago and she at times feels alittle depressed but a reasonable amount. She now resides alone. She is sindependent. Smoking Status: Never smoker Past Alcohol Use History: None Reported Past Drug Use History: None Reported - Past Family History Father Family Medical History: Vascular Disorder Additional Family Medical History / Comment(s): Father from a ruptured cerebral aneurysm in his 80s. Mother Family Medical History: CVA/TIA Additional Family Medical History / Comment(s): Mother is 94 yrs old. Brother(s) Family Medical History: No Reported History Sister(s) Family Medical History: No Reported History Daughter(s) Family Medical History: Diabetes Mellitus Son(s) History Unknown: Yes Medications and Allergies Home Medications Medication Instructions Recorded Confirmed Type glipiZIDE/METFORMIN HCL 2 tab PO BID 01/24/16 12/14/17 History [glipiZIDE/METFORMIN HCL 5-500 mg] ALPRAZolam [Xanax] 0.25 mg PO TID PRN tab 12/01/17 12/14/17 Rx Aspirin 325 mg PO DAILY tab 12/01/17 12/14/17 Rx Atorvastatin [Lipitor] 40 mg PO HS #30 tab 12/01/17 12/14/17 Rx Lisinopril [Zestril] 20 mg PO DAILY #30 tab 12/01/17 12/14/17 Rx amLODIPine [Norvasc] 5 mg PO DAILY #30 tab 12/01/17 12/14/17 Rx Allergies Allergy/AdvReac Type Severity Reaction Status Date / Time No Known Allergies Allergy Verified 12/14/17 16:29 Physical Exam Vitals: Vital Signs Temp Pulse Resp BP BP Pulse Ox 12/15/17 11:00 98.2 F 79 14 105/49 96 12/15/17 08:00 98.0 F 74 114/50 95 12/15/17 07:00 71 16 100/48 95 12/15/17 06:30 81 15 96/46 97 12/15/17 06:00 67 16 96/46 95 12/15/17 05:30 72 16 98/45 93 L 12/15/17 05:00 66 16 98/45 95 12/15/17 04:30 67 16 94/52 98 12/15/17 04:00 98.3 F 65 16 94/52 98 12/15/17 03:30 68 85/65 98 12/15/17 03:00 65 15 85/48 98 12/15/17 02:30 62 16 95/55 98 12/15/17 02:00 69 16 89/42 98 12/15/17 01:30 67 16 96/44 98 12/15/17 01:00 70 15 96/44 98 12/15/17 00:30 72 16 86/54 96 12/15/17 00:06 78 15 85/50 97 12/15/17 00:00 97.7 F 91 16 90/50 97 12/14/17 23:30 78 14 94/45 96 12/14/17 23:00 75 16 94/45 97 12/14/17 22:30 83 15 112/55 98 12/14/17 22:00 77 15 112/55 97 12/14/17 21:42 96 12/14/17 21:30 98.6 F 92 20 128/63 97 12/14/17 21:12 97.9 F 16 112/55 97 12/14/17 20:30 98.9 F 98 20 130/59 97 12/14/17 19:39 98.0 F 98 20 128/60 98 12/14/17 18:30 99.0 F 99 20 146/55 99 12/14/17 17:23 102 H 22 146/64 97 12/14/17 16:20 101.0 F H 118 H 24 134/75 100 Intake and Output 12/14/17 12/15/17 12/15/17 22:59 06:59 14:59 Intake Total 100 1125 Output Total 0 450 Balance 100 675 Intake: IV 100 1125 Magnesium Sulfate-D5w Pmx 100 1 gm In Dextrose/Water 1 100ml.bag @ 100 mls/hr IVPB Q1H [facility] Rx#: [id number] Piperacillin-Tazobactam 3 100 .375 gm In Dextrose/Water 1 50ml.bag @ 12.5 mls/hr IVPB 0400,1300,2000 YARA Rx#:[id number] Sodium Chloride 0.9% 1, 100 800 000 ml @ 100 mls/hr IV . Q10H YARA Rx#:[id number] Vancomycin 1,500 mg In 125 Sodium Chloride 0.9% 250 ml @ 125 mls/hr IVPB 0000 ,1100 YARA Rx#:[id number] Output: Urine 0 450 Other: Voiding Method Bedside Commode Toilet Weight 83.461 kg 89.5 kg GENERAL EXAM: Alert, active, comfortable in no apparent distress. HEAD: Normocephalic. EYES: Normal reaction of pupils, equal size. NOSE: Clear with pink turbinates. THROAT: No erythema or exudates. NECK: No masses, no JVD. CHEST: No chest wall deformity. LUNGS: Equal air entry with no crackles, wheeze, rhonchi or dullness. CVS: S1 and S2 normal with no audible murmur, regular rhythm. ABDOMEN: Tender in the right upper quadrant No hepatosplenomegaly, normal bowel sounds, no guarding or rigidity. SPINE: No scoliosis or deformity SKIN: No rashes CENTRAL NERVOUS SYSTEM: No focal deficits, tone is normal in all 4 extremities. EXTREMITIES: There is no peripheral edema. No clubbing, no cyanosis. Peripheral pulses are intact. Results - Laboratory Findings CBC and BMP: 12/15/17 04:23 12/15/17 04:23 PT/INR, D-dimer PT 13.1 sec (9.0-12.0) H 12/15/17 04:23 INR 1.4 (<1.2) H 12/15/17 04:23 Abnormal lab findings: Abnormal Labs 12/14/17 12/14/17 12/14/17 17:05 17:05 17:05 WBC 17.7 H Neutrophils # 16.6 H Lymphocytes # 0.7 L PT INR Glucose 238 H POC Glucose (mg/dL) Plasma Lactic Acid Joe 4.2 H* Phosphorus Magnesium Total Bilirubin 5.6 H Conjugated Bilirubin Unconjugated Bilirubin Delta Bilirubin AST 241 H ALT 254 H Alkaline Phosphatase 177 H Total Protein Albumin Urine Protein Urine Glucose (UA) Urine Ketones Urine Blood Urine Bilirubin Urine Mucus 12/14/17 12/14/17 12/14/17 17:05 17:05 17:05 WBC Neutrophils # Lymphocytes # PT 12.3 H INR 1.3 H Glucose POC Glucose (mg/dL) Plasma Lactic Acid Joe Phosphorus Magnesium 1.1 L Total Bilirubin Conjugated Bilirubin Unconjugated Bilirubin Delta Bilirubin AST ALT Alkaline Phosphatase Total Protein Albumin Urine Protein 1+ H Urine Glucose (UA) 4+ H Urine Ketones 1+ H Urine Blood Trace H Urine Bilirubin 2+ H Urine Mucus Rare H 12/14/17 12/14/17 12/15/17 19:30 21:47 02:16 WBC Neutrophils # Lymphocytes # PT INR Glucose POC Glucose (mg/dL) 248 H 222 H Plasma Lactic Acid Joe Phosphorus Magnesium Total Bilirubin 5.6 H Conjugated Bilirubin 2.5 H Unconjugated Bilirubin 1.7 H Delta Bilirubin 1.4 H AST ALT Alkaline Phosphatase Total Protein Albumin Urine Protein Urine Glucose (UA) Urine Ketones Urine Blood Urine Bilirubin Urine Mucus 12/15/17 12/15/17 12/15/17 04:23 04:23 04:23 WBC 16.5 H Neutrophils # 14.6 H Lymphocytes # PT 13.1 H INR 1.4 H Glucose 201 H POC Glucose (mg/dL) Plasma Lactic Acid Joe Phosphorus 4.6 H Magnesium 1.3 L Total Bilirubin 4.8 H Conjugated Bilirubin Unconjugated Bilirubin Delta Bilirubin AST 123 H ALT 189 H Alkaline Phosphatase Total Protein 6.0 L Albumin 3.3 L Urine Protein Urine Glucose (UA) Urine Ketones Urine Blood Urine Bilirubin Urine Mucus 12/15/17 07:25 WBC Neutrophils # Lymphocytes # PT INR Glucose POC Glucose (mg/dL) 166 H Plasma Lactic Acid Joe Phosphorus Magnesium Total Bilirubin Conjugated Bilirubin Unconjugated Bilirubin Delta Bilirubin AST ALT Alkaline Phosphatase Total Protein Albumin Urine Protein Urine Glucose (UA) Urine Ketones Urine Blood Urine Bilirubin Urine Mucus - Diagnostic Findings Chest x-ray: image reviewed Assessment and Plan Assessment: Impression: #1 Right upper quadrant/flank pain with fever. Computed tomography scan of the abdomen revealed prominent common bile duct into the head of the pancreas. No underlying masses noted. Elevated liver enzymes. The plan is for ERCP possibly 10/16/2018. #2 Diabetes mellitus, type II. #3 Hypertension. #4 Hyperlipidemia. #5 Previous history of cholecystectomy 20 years ago. Plan: The patient was seen and evaluated by Dr. Dr. Rosado. Her chest x-ray and computed tomography scan and labs were all reviewed. She is stable from the pulmonary and critical care standpoint and will be transferred out of the intensive care unit today. She remains on vancomycin and Zosyn. Pepcid for GI prophylaxis. GI services on the case and planning for an ERCP Sunday. We will see the patient on as-needed basis. I, the cosigning physician, performed a history & physical examination of the patient. Lungs sounds are clear. Maintaining good O2 saturations in the 90s on room air. I discussed the assessment and plan of care with my nurse practitioner, Luz Sheehan. I attest to the above note as dictated by her. Time with Patient: Greater than 30
[2017-12-15 13:44] LABS: Glucose,Whole Blood 279 mg/dL (75-99)
[2017-12-15] MEDS: LISINOPRIL 20 MG TAB PO SCH (13:56)
--- NOTE | 2017-12-15 14:48 | P.HPIM ---
History of Present Illness H&P Date: 12/15/17 Chief Complaint: Ascending cholangitis with sepsis. This is a 72 year-old female one of with a previous medical history significant for hypertension and hypertensive cardiovascular disease, hyperlipidemia, diabetes mellitus type 2, was recently hospitalized because of episode of chest pain and she was followed as an outpatient in our office and she was scheduled for stress test an outpatient, patient was in her state of health till yesterday at around 2 pm when she suddenly developed to have significant pain in the bilateral flank areas,without any abdominal pain , she denied any nausea, vomiting or diarrhea, she did not know that she had a temperature, she ended up coming to the ER at [facility] with increased bilteral flank pain and she was found to have fever with sepsis picture along with elevated LFTs and had CT scan of the abdomen and pelvis that showed dilated CBD with pancreatic ducts without evidence of any obstruction, she was seen by GI and recommended for her to be started on IV ABX in the form of Vancomycin and Zosyn and the plan is to go fr ERCP on Sunday. Review of Systems Constitutional: Reports fatigue, Reports fever, Reports weakness, Denies anorexia, Denies chills, Denies chronic headaches, Denies chronic pain, Denies lethargy, Denies malaise, Denies weight gain, Denies weight loss Eyes: denies blurred vision, denies bulging eye, denies decreased vision, denies diplopia Ears: deny: decreased hearing Ears, nose, mouth and throat: Denies epistaxis, Denies neck fullness/pressure, Denies nose pain, Denies swelling in throat, Denies sore throat, Denies vertigo Cardiovascular: Reports high blood pressure, Denies chest pain, Denies claudication, Denies decreased exercise tolerance, Denies lightheadedness, Denies rapid heart beat, Denies shortness of breath, Denies syncope Respiratory: Denies congestion, Denies cough, Denies cough with sputum, Denies home oxygen, Denies sleep apnea, Denies snoring, Denies wheezing Gastrointestinal: Denies abdominal pain, Denies belching, Denies bloating, Denies BRBPR, Denies change in bowel habits, Denies excessive gas, Denies heartburn, Denies loss of appetite, Denies melena, Denies nausea, Denies vomiting Genitourinary: Denies dysuria, Denies hematuria Menstruation: Reports postmenopausal Musculoskeletal: Denies myalgias Musculoskeletal: absent: ankle pain, ankle stiffness, ankle swelling, elbow pain , elbow stiffness, elbow swelling, foot pain, foot stiffness, foot swelling, hand pain, hand stiffness, hand swelling, hip pain, hip stiffness, hip swelling , knee pain, knee stiffness, knee swelling, shoulder pain, shoulder stiffness, shoulder swelling, wrist pain, wrist stiffness, wrist swelling Integumentary: Denies pruritus, Denies rash Neurological: Denies numbness, Denies weakness Psychiatric: Denies anxiety, Denies depression Endocrine: Denies fatigue, Denies weight change Past Medical History Past Medical History: Diabetes Mellitus, GERD/Reflux, Hyperlipidemia, Hypertension, Osteoarthritis (OA) Additional Past Medical History / Comment(s): NIDDM type II, arthritis bilateral knees. History of Any Multi-Drug Resistant Organisms: None Reported Past Surgical History: Adenoidectomy, Cholecystectomy, Tonsillectomy Additional Past Surgical History / Comment(s): Bilateral cataract removals with lens implants. Past Anesthesia/Blood Transfusion Reactions: No Reported Reaction Additional Past Anesthesia/Blood Transfusion Reaction / Comment(s): No transfusion history Past Psychological History: Anxiety Additional Psychological History / Comment(s): Pt states her spouse a few months ago and she at times feels alittle depressed but a reasonable amount. She now resides alone. She is sindependent. Smoking Status: Never smoker Past Alcohol Use History: None Reported Past Drug Use History: None Reported - Past Family History Father Family Medical History: Vascular Disorder Additional Family Medical History / Comment(s): Father from a ruptured cerebral aneurysm in his 82 Mother Family Medical History: CVA/TIA Additional Family Medical History / Comment(s): Mother is 94 yrs old with history of CVA. Brother(s) Family Medical History: No Reported History (Patient has one brother with no major medical issues.) Sister(s) Family Medical History: No Reported History (Patient has two sisters one of them with arrythmia.) Daughter(s) Family Medical History: Diabetes Mellitus (Patient has 2 daughters one of them with DM2.) Son(s) History Unknown: Yes Family Medical History: No Reported History (Patient has one son no major health issues.) Medications and Allergies Home Medications Medication Instructions Recorded Confirmed Type glipiZIDE/METFORMIN HCL 2 tab PO BID 01/24/16 12/14/17 History [glipiZIDE/METFORMIN HCL 5-500 mg] ALPRAZolam [Xanax] 0.25 mg PO TID PRN tab 12/01/17 12/14/17 Rx Aspirin 325 mg PO DAILY tab 12/01/17 12/14/17 Rx Atorvastatin [Lipitor] 40 mg PO HS #30 tab 12/01/17 12/14/17 Rx Lisinopril [Zestril] 20 mg PO DAILY #30 tab 12/01/17 12/14/17 Rx amLODIPine [Norvasc] 5 mg PO DAILY #30 tab 12/01/17 12/14/17 Rx Allergies Allergy/AdvReac Type Severity Reaction Status Date / Time No Known Allergies Allergy Verified 12/14/17 16:29 Physical Exam Vitals: Vital Signs Temp Pulse Resp BP BP Pulse Ox 12/15/17 07:00 71 16 100/48 95 12/15/17 06:30 81 15 96/46 97 12/15/17 06:00 67 16 96/46 95 12/15/17 05:30 72 16 98/45 93 L 12/15/17 05:00 66 16 98/45 95 12/15/17 04:30 67 16 94/52 98 12/15/17 04:00 98.3 F 65 16 94/52 98 12/15/17 03:30 68 85/65 98 12/15/17 03:00 65 15 85/48 98 12/15/17 02:30 62 16 95/55 98 12/15/17 02:00 69 16 89/42 98 12/15/17 01:30 67 16 96/44 98 12/15/17 01:00 70 15 96/44 98 12/15/17 00:30 72 16 86/54 96 12/15/17 00:06 78 15 85/50 97 12/15/17 00:00 97.7 F 91 16 90/50 97 12/14/17 23:30 78 14 94/45 96 12/14/17 23:00 75 16 94/45 97 12/14/17 22:30 83 15 112/55 98 12/14/17 22:00 77 15 112/55 97 12/14/17 21:42 96 12/14/17 21:30 98.6 F 92 20 128/63 97 12/14/17 21:12 97.9 F 16 112/55 97 12/14/17 20:30 98.9 F 98 20 130/59 97 12/14/17 19:39 98.0 F 98 20 128/60 98 12/14/17 18:30 99.0 F 99 20 146/55 99 12/14/17 17:23 102 H 22 146/64 97 12/14/17 16:20 101.0 F H 118 H 24 134/75 100 Intake and Output 12/14/17 12/15/17 12/15/17 22:59 06:59 14:59 Intake Total 100 1125 Output Total 0 450 Balance 100 675 Intake: IV 100 1125 Magnesium Sulfate-D5w Pmx 100 1 gm In Dextrose/Water 1 100ml.bag @ 100 mls/hr IVPB Q1H YARA Rx#: [id number] Piperacillin-Tazobactam 3 100 .375 gm In Dextrose/Water 1 50ml.bag @ 12.5 mls/hr IVPB 0400,1300,2000 YARA Rx#:[id number] Sodium Chloride 0.9% 1, 100 800 000 ml @ 100 mls/hr IV . Q10H YARA Rx#:[id number] Vancomycin 1,500 mg In 125 Sodium Chloride 0.9% 250 ml @ 125 mls/hr IVPB 0000 ,1100 YARA Rx#:[id number] Output: Urine 0 450 Other: Voiding Method Bedside Commode Weight 83.461 kg 89.5 kg - Constitutional General appearance: average body habitus, no acute distress - EENT Eyes: anicteric sclerae, EOMI, PERRLA, no ptosis, no scleral icterus, normal appearance ENT: hearing grossly normal, NA/AT, normal oropharynx, no thrush Ears: bilateral: normal - Neck Neck: no lymphadenopathy, normal ROM, no rigidity, no stridor, no thyromegaly Carotids: bilateral: upstroke normal Thyroid: bilateral: normal size - Respiratory Respiratory: bilateral: diminished, negative: dullness, rales, rhonchi, wheezing , prolonged expiration, prolonged inspiration - Cardiovascular Rhythm: regular Heart sounds: normal: S1, S2 Abnormal Heart Sounds: systolic murmur, no S3 Gallop, no S4 Gallop - Gastrointestinal General gastrointestinal: normal bowel sounds, soft, no splenomegaly, no tenderness, no umbilical hernia, no ventral hernia - Integumentary Integumentary: normal, normal turgor - Neurologic Neurologic: CNII-XII intact - Musculoskeletal Musculoskeletal: gait normal, strength equal bilaterally - Psychiatric Psychiatric: A&O x's 3, appropriate affect, intact judgment & insight Results CBC & Chem 7: 12/15/17 04:23 12/15/17 04:23 Labs: Abnormal Lab Results - Last 24 Hours (Table) 12/14/17 12/14/17 12/14/17 Range/Units 17:05 17:05 17:05 WBC 17.7 H (3.8-10.6) k/uL Neutrophils # 16.6 H (1.3-7.7) k/uL Lymphocytes # 0.7 L (1.0-4.8) k/uL PT (9.0-12.0) sec INR (<1.2) Glucose 238 H (74-99) mg/dL POC Glucose (mg/dL) (75-99) mg/dL Plasma Lactic Acid Joe 4.2 H* (0.7-2.0) mmol/L Phosphorus (2.5-4.5) mg/dL Magnesium (1.6-2.3) mg/dL Total Bilirubin 5.6 H (0.2-1.3) mg/dL Conjugated Bilirubin (0.0-0.3) mg/dL Unconjugated Bilirubin (0.0-1.1) mg/dL Delta Bilirubin (0.0-0.2) mg/dL AST 241 H (14-36) U/L ALT 254 H (9-52) U/L Alkaline Phosphatase 177 H (38-126) U/L Total Protein (6.3-8.2) g/dL Albumin (3.5-5.0) g/dL Urine Protein (Negative) Urine Glucose (UA) (Negative) Urine Ketones (Negative) Urine Blood (Negative) Urine Bilirubin (Negative) Urine Mucus (None) /hpf 12/14/17 12/14/17 12/14/17 Range/Units 17:05 17:05 17:05 WBC (3.8-10.6) k/uL Neutrophils # (1.3-7.7) k/uL Lymphocytes # (1.0-4.8) k/uL PT 12.3 H (9.0-12.0) sec INR 1.3 H (<1.2) Glucose (74-99) mg/dL POC Glucose (mg/dL) (75-99) mg/dL Plasma Lactic Acid Joe (0.7-2.0) mmol/L Phosphorus (2.5-4.5) mg/dL Magnesium 1.1 L (1.6-2.3) mg/dL Total Bilirubin (0.2-1.3) mg/dL Conjugated Bilirubin (0.0-0.3) mg/dL Unconjugated Bilirubin (0.0-1.1) mg/dL Delta Bilirubin (0.0-0.2) mg/dL AST (14-36) U/L ALT (9-52) U/L Alkaline Phosphatase (38-126) U/L Total Protein (6.3-8.2) g/dL Albumin (3.5-5.0) g/dL Urine Protein 1+ H (Negative) Urine Glucose (UA) 4+ H (Negative) Urine Ketones 1+ H (Negative) Urine Blood Trace H (Negative) Urine Bilirubin 2+ H (Negative) Urine Mucus Rare H (None) /hpf 12/14/17 12/14/17 12/15/17 Range/Units 19:30 21:47 02:16 WBC (3.8-10.6) k/uL Neutrophils # (1.3-7.7) k/uL Lymphocytes # (1.0-4.8) k/uL PT (9.0-12.0) sec INR (<1.2) Glucose (74-99) mg/dL POC Glucose (mg/dL) 248 H 222 H (75-99) mg/dL Plasma Lactic Acid Joe (0.7-2.0) mmol/L Phosphorus (2.5-4.5) mg/dL Magnesium (1.6-2.3) mg/dL Total Bilirubin 5.6 H (0.2-1.3) mg/dL Conjugated Bilirubin 2.5 H (0.0-0.3) mg/dL Unconjugated Bilirubin 1.7 H (0.0-1.1) mg/dL Delta Bilirubin 1.4 H (0.0-0.2) mg/dL AST (14-36) U/L ALT (9-52) U/L Alkaline Phosphatase (38-126) U/L Total Protein (6.3-8.2) g/dL Albumin (3.5-5.0) g/dL Urine Protein (Negative) Urine Glucose (UA) (Negative) Urine Ketones (Negative) Urine Blood (Negative) Urine Bilirubin (Negative) Urine Mucus (None) /hpf 12/15/17 12/15/17 12/15/17 Range/Units 04:23 04:23 04:23 WBC 16.5 H (3.8-10.6) k/uL Neutrophils # 14.6 H (1.3-7.7) k/uL Lymphocytes # (1.0-4.8) k/uL PT 13.1 H (9.0-12.0) sec INR 1.4 H (<1.2) Glucose 201 H (74-99) mg/dL POC Glucose (mg/dL) (75-99) mg/dL Plasma Lactic Acid Joe (0.7-2.0) mmol/L Phosphorus 4.6 H (2.5-4.5) mg/dL Magnesium 1.3 L (1.6-2.3) mg/dL Total Bilirubin 4.8 H (0.2-1.3) mg/dL Conjugated Bilirubin (0.0-0.3) mg/dL Unconjugated Bilirubin (0.0-1.1) mg/dL Delta Bilirubin (0.0-0.2) mg/dL AST 123 H (14-36) U/L ALT 189 H (9-52) U/L Alkaline Phosphatase (38-126) U/L Total Protein 6.0 L (6.3-8.2) g/dL Albumin 3.3 L (3.5-5.0) g/dL Urine Protein (Negative) Urine Glucose (UA) (Negative) Urine Ketones (Negative) Urine Blood (Negative) Urine Bilirubin (Negative) Urine Mucus (None) /hpf 12/15/17 Range/Units 07:25 WBC (3.8-10.6) k/uL Neutrophils # (1.3-7.7) k/uL Lymphocytes # (1.0-4.8) k/uL PT (9.0-12.0) sec INR (<1.2) Glucose (74-99) mg/dL POC Glucose (mg/dL) 166 H (75-99) mg/dL Plasma Lactic Acid Joe (0.7-2.0) mmol/L Phosphorus (2.5-4.5) mg/dL Magnesium (1.6-2.3) mg/dL Total Bilirubin (0.2-1.3) mg/dL Conjugated Bilirubin (0.0-0.3) mg/dL Unconjugated Bilirubin (0.0-1.1) mg/dL Delta Bilirubin (0.0-0.2) mg/dL AST (14-36) U/L ALT (9-52) U/L Alkaline Phosphatase (38-126) U/L Total Protein (6.3-8.2) g/dL Albumin (3.5-5.0) g/dL Urine Protein (Negative) Urine Glucose (UA) (Negative) Urine Ketones (Negative) Urine Blood (Negative) Urine Bilirubin (Negative) Urine Mucus (None) /hpf Microbiology - Last 24 Hours (Table) 12/14/17 17:05 Urine Culture - Preliminary Urine,Voided Thrombosis Risk Factor Assmnt - DVT/VTE Prophylaxis DVT/VTE Prophylaxis: Pharmacologic Prophylaxis ordered, Mechanical Prophylaxis ordered - Choose All That Apply Each Factor Represents 1 point: Minor surgery planned, Obesity (BMI >25), Sepsis (< 1month) Other Risk Factors: Yes Each Risk Factor Represents 2 Points: Age 61-74 years Other congenital or acquired thrombophilia - If yes, enter type in comment: No Thrombosis Risk Factor Assessment Total Risk Factor Score: 5 Thrombosis Risk Factor Assessment Level: High Risk Assessment and Plan Assessment: Assessment and Plan: 1. Ascending cholangitis with possible CBD stone that had passed Vs other etiology. discontinue Lipitor and metformin, will start IVF with IV ABX in the form of Vancomycin and Zosyn, will repeat lactic acid and will follow up with GI for ERCP in 1 -2 days. 2. sepsis with possible cholangitis. continue with IVF, IV ABX. 3. Hypertension and hypertensive cardiovascular disease. will continue with Lisinopril 20 mg orally daily and Amlodipine 5 mg orally daily. 4. Hyperlipidemia. will discontinue Lipitor. 5. Diabetes Mellitus type 2 . will discontinue Glucovance and will start SSI. 6. Anxiety. will continue with xanax as needed. 7. Mild LV dysfunction. will continue with lisinopril and follow up with cardiology as an outpatient. 8. DVT prophylaxis. will continue with Heparin 5000 units sc q 12 h . 9. GI Prophylaxis. will continue with PPI. 10. No code status per her own wishes. 11. admits as an inpatient. estimated length of stay is 2 days. 12. Prognosis is guarded.
[2017-12-15] MEDS: HEPARIN SODIUM,PORCINE 5,000 UNIT/ML 1 ML VIAL SQ SCH ×2 (16:07→23:48)
[2017-12-15 17:08] LABS: Glucose,Whole Blood 142 mg/dL (75-99)
[2017-12-15 21:03] LABS: Glucose,Whole Blood 189 mg/dL (75-99)
[2017-12-15 21:23] LABS: Potassium 3.8 mmol/L (3.5-5.1)
[2017-12-16] MEDS: VANCOMYCIN 1,500 MG in SODIUM CHLORIDE 0.9% 250 ML IVPB SCH ×2 (00:54→11:54)
[2017-12-16] MEDS: PIPERACILLIN-TAZOBACTAM 3.375 GM in DEXTROSE/WATER 1 50ML.BAG IVPB SCH ×3 (04:25→20:50)
[2017-12-16 05:07] LABS: INR 1.1 (<1.2); Prothrombin Time 10.5 sec (9.0-12.0)
[2017-12-16 05:18] LABS: ALT 144 U/L (9-52); AST 85 U/L (14-36); Albumin 3.4 g/dL (3.5-5.0); Alkaline Phosphatase 163 U/L (38-126); Anion Gap 10 mmol/L; Blood Urea Nitrogen 8 mg/dL (7-17); Carbon Dioxide 25 mmol/L (22-30); Chloride 106 mmol/L (98-107); Glucose 157 mg/dL (74-99); Magnesium 2.2 mg/dL (1.6-2.3); Potassium 4.3 mmol/L (3.5-5.1); Sodium 141 mmol/L (137-145); Total Bilirubin 3.2 mg/dL (0.2-1.3); Total Protein 6.1 g/dL (6.3-8.2)
[2017-12-16 05:19] LABS: Basophils % (A) 0 %; Eosinophils # (A) 0.1 k/uL (0-0.7); Eosinophils % (A) 1 %; HCT 39.2 % (34.0-46.0); HGB 12.8 gm/dL (11.4-16.0); Lymphocytes # (A) 0.9 k/uL (1.0-4.8); Lymphocytes % (A) 10 %; MCH 29.2 pg (25.0-35.0); MCHC 32.8 g/dL (31.0-37.0); Mean Platelet Volume 7.2; Monocytes # (A) 0.4 k/uL (0-1.0); Monocytes % (A) 4 %; Neutrophils # (A) 7.5 k/uL (1.3-7.7); Neutrophils % (A) 83 %; Platelet Count 170 k/uL (150-450); RDW 13.3 % (11.5-15.5)
--- NOTE | 2017-12-16 09:45 | PN ---
PROGRESS NOTE DATE OF SERVICE: 12/16/2017. REQUESTING PHYSICIAN: Dr. Durán. HISTORY: The patient is a 72-year-old pleasant white female admitted to hospital with right upper quadrant abdominal pain, fever, chills, and elevated LFTs, all suggestive of ascending cholangitis and has been in intensive care unit, started on broad-spectrum antibiotics. CT scan of the abdomen showed dilated common bile duct. She has a remote history of gallbladder surgery for symptomatic gallstones. She is doing much better. Abdominal pain is completely resolved. No nausea, vomiting. No fever, chills, or night sweats. PHYSICAL EXAMINATION: Appears comfortable, in no apparent distress. VITAL SIGNS: Stable. Blood pressure 114/51, pulse rate 76, temperature 98. HEENT: Examination unremarkable. Conjunctivae pink. Sclerae anicteric. Oral cavity no lesions. NECK: No JVD. No lymph node enlargement. CHEST: Clear to auscultation. HEART: Regular rate and rhythm. ABDOMEN: Soft, nontender, nondistended. Bowel sounds are positive. No organomegaly. EXTREMITIES: No pedal edema. SKIN: No rashes. NEUROLOGIC: Alert and oriented x3. No focal deficits. LABS: From today, WBC 9, hemoglobin 12.8, platelets are normal. T bilirubin is up to 3.2, AST is 84, ALT is 144, alkaline phosphatase is 163. IMPRESSION: This is a lady who presents to the hospital with severe epigastric and right upper quadrant abdominal pain associated with nausea, vomiting, fever and chills. She was noted to have elevated LFTs and T bilirubin up to 5, all consistent with ascending cholangitis. CT of the abdomen showed dilated common bile duct, but no CBD stones seen. The patient on broad-spectrum antibiotics with Zosyn and vancomycin and is doing well. In fact, she remains hemodynamically stable and leukocytosis has resolved. RECOMMENDATIONS: 1. Advance diet. 2. Continue with broad-spectrum antibiotics. 3. We will proceed with an ERCP tomorrow. I discussed with the patient risks, benefits, and complications of the procedure and she is agreeable to it. Thank you for this consultation. MMODL / IJN: [id number] /
[2017-12-16] MEDS: HEPARIN SODIUM,PORCINE 5,000 UNIT/ML 1 ML VIAL SQ SCH ×3 (10:10→23:46)
[2017-12-16] MEDS: ASPIRIN 325 MG TAB PO SCH (10:11)
[2017-12-16] MEDS: FAMOTIDINE 20 MG TAB PO SCH ×2 (10:11→20:50)
[2017-12-16] MEDS: LISINOPRIL 20 MG TAB PO SCH (10:11)
[2017-12-16] MEDS: amLODIPine 5 MG TAB PO SCH (10:11)
[2017-12-16] MEDS: INSULIN ASPART 100 UNIT/ML 1 ML 10 ML VIAL SQ SCH ×4 (10:12→20:50)
[2017-12-16 11:59] LABS: Glucose,Whole Blood 184 mg/dL (75-99)
--- NOTE | 2017-12-16 12:28 | P.PN ---
Subjective Progress Note Date: 12/16/17 This is a 72 year-old female one of with a previous medical history significant for hypertension and hypertensive cardiovascular disease, hyperlipidemia, diabetes mellitus type 2, was recently hospitalized because of episode of chest pain and she was followed as an outpatient in our office and she was scheduled for stress test an outpatient, patient was in her state of health till yesterday at around 2 pm when she suddenly developed to have significant pain in the bilateral flank areas,without any abdominal pain , she denied any nausea, vomiting or diarrhea, she did not know that she had a temperature, she ended up coming to the ER at [facility] with increased bilteral flank pain and she was found to have fever with sepsis picture along with elevated LFTs and had CT scan of the abdomen and pelvis that showed dilated CBD with pancreatic ducts without evidence of any obstruction, she was seen by GI and recommended for her to be started on IV ABX in the form of Vancomycin and Zosyn and the plan is to go fr ERCP on Sunday. 12/16: Patient is feeling a lot better today she denies any chest pain, shortness of breath, she has no abdominal pain, nausea, vomiting, she would be started on soft diet this afternoon as to be placed on nothing per mouth after midnight so she can go for ERCP tomorrow morning. Objective - Vital Signs Vital signs: Vital Signs Temp 98.1 F 12/16/17 04:00 Pulse 74 12/16/17 07:00 Resp 11 L 12/16/17 07:00 BP 114/51 12/16/17 05:00 Pulse Ox 95 12/15/17 20:00 Intake & Output 12/15/17 12/16/17 12/16/17 18:59 06:59 18:59 Intake Total 600 1225.0 Balance 600 1225.0 Weight 83.3 kg Intake: IV 575.0 Magnesium Sulfate-D5w Pmx 200 1 gm In Dextrose/Water 1 100ml.bag @ 100 mls/hr IVPB Q1H [facility] Rx#: [id number] Piperacillin-Tazobactam 3 125.0 .375 gm In Dextrose/Water 1 50ml.bag @ 12.5 mls/hr IVPB 0400,1300,2000 [facility] Rx#:[id number] Vancomycin 1,500 mg In 250 Sodium Chloride 0.9% 250 ml @ 125 mls/hr IVPB 0000 ,1100 [facility] Rx#:[id number] Intake, IV Titration 300 Amount Piperacillin-Tazobactam 3 50 .375 gm In Dextrose/Water 1 50ml.bag @ 12.5 mls/hr IVPB 0400,1300,2000 [facility] Rx#:[id number] Vancomycin 1,500 mg In 250 Sodium Chloride 0.9% 250 ml @ 125 mls/hr IVPB ONCE [facility] Rx#:[id number] Oral 300 650 Other: Voiding Method Toilet Toilet # Voids 2 2 - Exam - Constitutional General appearance: average body habitus, no acute distress - EENT Eyes: anicteric sclerae, EOMI, PERRLA, no ptosis, no scleral icterus, normal appearance ENT: hearing grossly normal, NA/AT, normal oropharynx, no thrush Ears: bilateral: normal - Neck Neck: no lymphadenopathy, normal ROM, no rigidity, no stridor, no thyromegaly Carotids: bilateral: upstroke normal Thyroid: bilateral: normal size - Respiratory Respiratory: bilateral: diminished, negative: dullness, rales, rhonchi, wheezing , prolonged expiration, prolonged inspiration - Cardiovascular Rhythm: regular Heart sounds: normal: S1, S2 Abnormal Heart Sounds: systolic murmur, no S3 Gallop, no S4 Gallop - Gastrointestinal General gastrointestinal: normal bowel sounds, soft, no splenomegaly, no tenderness, no umbilical hernia, no ventral hernia - Integumentary Integumentary: normal, normal turgor - Neurologic Neurologic: CNII-XII intact - Musculoskeletal Musculoskeletal: gait normal, strength equal bilaterally - Psychiatric Psychiatric: A&O x's 3, appropriate affect, intact judgment & insight - Labs CBC & Chem 7: 12/16/17 04:22 12/16/17 04:22 Labs: Abnormal Lab Results - Last 24 Hours (Table) 12/15/17 12/15/17 12/15/17 Range/Units 13:43 17:05 21:00 Lymphocytes # (1.0-4.8) k/uL Glucose (74-99) mg/dL POC Glucose (mg/dL) 279 H 142 H 189 H (75-99) mg/dL Total Bilirubin (0.2-1.3) mg/dL AST (14-36) U/L ALT (9-52) U/L Alkaline Phosphatase (38-126) U/L Total Protein (6.3-8.2) g/dL Albumin (3.5-5.0) g/dL 12/16/17 12/16/17 Range/Units 04:22 04:22 Lymphocytes # 0.9 L (1.0-4.8) k/uL Glucose 157 H (74-99) mg/dL POC Glucose (mg/dL) (75-99) mg/dL Total Bilirubin 3.2 H (0.2-1.3) mg/dL AST 85 H (14-36) U/L ALT 144 H (9-52) U/L Alkaline Phosphatase 163 H (38-126) U/L Total Protein 6.1 L (6.3-8.2) g/dL Albumin 3.4 L (3.5-5.0) g/dL Microbiology - Last 24 Hours (Table) 12/14/17 17:05 Urine Culture - Preliminary Urine,Voided Coagulase Negative Staph 12/14/17 17:05 Blood Culture - Preliminary Blood No Growth after 24 hours Assessment and Plan Assessment: Assessment and Plan: 1. Ascending cholangitis with possible CBD stone that had passed Vs other etiology. discontinue Lipitor and metformin, will start IVF with IV ABX in the form of Vancomycin and Zosyn, will repeat lactic acid and will follow up with GI for ERCP tomorrow morning. 2. sepsis with possible cholangitis. continue with IVF, IV ABX. 3. Hypertension and hypertensive cardiovascular disease. will continue with Lisinopril 20 mg orally daily and Amlodipine 5 mg orally daily. 4. Hyperlipidemia. will discontinue Lipitor. 5. Diabetes Mellitus type 2 . will discontinue Glucovance and will start SSI. 6. Anxiety. will continue with xanax as needed. 7. Mild LV dysfunction. will continue with lisinopril and follow up with cardiology as an outpatient. 8. DVT prophylaxis. will continue with Heparin 5000 units sc q 12 h . 9. GI Prophylaxis. will continue with PPI. 10. No code status per her own wishes.
[2017-12-16 16:55] LABS: Glucose,Whole Blood 167 mg/dL (75-99)
[2017-12-16 20:22] LABS: Glucose,Whole Blood 194 mg/dL (75-99)
[2017-12-16] MEDS ORDERED: VANCOMYCIN TROUGH DUE 1 EACH MISC MISCELLANE ONE (23:00)
[2017-12-16] MEDS: ACETAMINOPHEN TAB 325 MG TAB PO PRN (23:46)
[2017-12-17] MEDS: VANCOMYCIN 1,500 MG in SODIUM CHLORIDE 0.9% 250 ML IVPB SCH ×2 (00:52→12:16)
[2017-12-17 02:12] LABS: Glucose,Whole Blood 164 mg/dL (75-99)
[2017-12-17] MEDS: PIPERACILLIN-TAZOBACTAM 3.375 GM in DEXTROSE/WATER 1 50ML.BAG IVPB SCH ×3 (04:57→20:12)
[2017-12-17 07:31] LABS: Glucose,Whole Blood 186 mg/dL (75-99)
[2017-12-17] MEDS: INSULIN ASPART 100 UNIT/ML 1 ML 10 ML VIAL SQ SCH ×4 (08:01→21:30)
[2017-12-17 08:26] LABS: Basophils # (A) 0.1 k/uL (0-0.2); Basophils % (A) 1 %; Eosinophils # (A) 0.1 k/uL (0-0.7); Eosinophils % (A) 1 %; HGB 14.2 gm/dL (11.4-16.0); Lymphocytes # (A) 1.6 k/uL (1.0-4.8); Lymphocytes % (A) 23 %; MCH 29.2 pg (25.0-35.0); MCHC 32.2 g/dL (31.0-37.0); MCV 90.7 fL (80.0-100.0); Mean Platelet Volume 6.9; Monocytes # (A) 0.4 k/uL (0-1.0); Monocytes % (A) 6 %; Neutrophils # (A) 4.4 k/uL (1.3-7.7); Neutrophils % (A) 66 %; Platelet Count 198 k/uL (150-450); RBC 4.85 m/uL (3.80-5.40); RDW 13.1 % (11.5-15.5); WBC 6.7 k/uL (3.8-10.6)
[2017-12-17 08:31] LABS: ALT 126 U/L (9-52); AST 78 U/L (14-36); Albumin 3.6 g/dL (3.5-5.0); Alkaline Phosphatase 233 U/L (38-126); Anion Gap 13 mmol/L; Blood Urea Nitrogen 9 mg/dL (7-17); Calcium 9.7 mg/dL (8.4-10.2); Carbon Dioxide 22 mmol/L (22-30); Chloride 108 mmol/L (98-107); Glucose 184 mg/dL (74-99); Potassium 4.5 mmol/L (3.5-5.1); Sodium 143 mmol/L (137-145); Total Bilirubin 2.8 mg/dL (0.2-1.3); Total Protein 6.7 g/dL (6.3-8.2)
[2017-12-17] MEDS: HEPARIN SODIUM,PORCINE 5,000 UNIT/ML 1 ML VIAL SQ SCH ×2 (09:02→16:59)
[2017-12-17] MEDS: ASPIRIN 325 MG TAB PO SCH (09:03)
[2017-12-17] MEDS: LISINOPRIL 20 MG TAB PO SCH (09:03)
[2017-12-17] MEDS: amLODIPine 5 MG TAB PO SCH (09:03)
[2017-12-17] MEDS: FAMOTIDINE 20 MG TAB PO SCH ×2 (09:03→20:13)
[2017-12-17] MEDS ORDERED: INDOMETHACIN 50MG SUPPOSITORY RECTAL ONE (10:50)
[2017-12-17] MEDS ORDERED: PROPOFOL 10 MG/ML 20 ML VIAL IV ONE (11:07)
[2017-12-17] MEDS ORDERED: MIDAZOLAM 2 MG/2 ML VIAL ONE (11:07)
[2017-12-17] MEDS ORDERED: KETAMINE 10 MG/ML 20 ML VIAL ONE (11:07)
[2017-12-17] MEDS ORDERED: ESMOLOL 100 MG/10 ML VIAL ONE (11:07)
[2017-12-17] MEDS ORDERED: GLYCOPYRROLATE 0.2 MG/ML 2 ML VIAL ONE (11:07)
[2017-12-17] MEDS ORDERED: IV FLUID CONTINUATION 1,000 ML IV ONE (11:30)
[2017-12-17] MEDS ORDERED: LACTATED RINGERS 1,000 ML IV ONE (11:41)
[2017-12-17] MEDS ORDERED: IOHEXOL 300 MG/ML 50 ML BOTTLE MISCELLANE ONE (11:43)
--- NOTE | 2017-12-17 11:51 | P.PCN ---
Date of Procedure: 12/17/17 Procedure(s) Performed: Brief history: Patient is a 72 year old pleasant lady scheduled for an ERCP as part of evaluation of abdominal pain and elevated serum transaminases, jaundice for the last 2 days' duration. She also had fever and chills and was started on broad-spectrum antibiotics for possible ascending cholangitis. CT of the abdomen showed dilated common bile duct. She does have remote history of gallbladder surgery for symptomatic gallstones. The cause of the clinical suspicion for CBD stones she is scheduled for an ERCP today. Procedure performed: ERCP with biliary sphincterotomy and balloon extraction Preoperative diagnoses: Elevated LFTs/jaundice, dilated CBD and CAT scan, rule out CBD stone IV sedation per anesthesia: Procedure: After informed consent was obtained from the patient and after the risks benefits and complications including bleeding perforation and pancreatitis explained in detail the patient was brought into the endoscopy unit. The patient was placed in prone position and IV conscious sedation was administered by anesthesia under continuous monitoring. The Olympus side-viewing duodenoscope was then inserted into the mouth and esophagus intubated without any difficulty. The scope was gradually advanced into the stomach and duodenum. The major papilla was identified without any difficulty. There was a large periampullary diverticulum noted. Initial cannulation resulted in opacification of the common bile duct that appeared dilated measuring at least 1.5 cm in diameter and there was a faint filling defect noted in the distal common bile duct. At this time I proceeded with a biliary sphincterotomy after the catheter was exchanged over a guidewire. Biliary sphincterotomy was performed at 11 o'clock position and was extended to almost 1 cm in length. Following this a 9-12 mm balloon was passed into the proximal CBD, inflated and gently withdrawn and this maneuver was repeated 4 times and no obvious stone was seen exiting the ampulla. At this time an occlusion cholangiogram was performed and the previously noted filling defect could not be visualized. At this time the procedure was terminated and the patient tolerated the procedure well. The pancreatic duct was intentionally not cannulated during the entire procedure. Impression: Dilated common bile duct measuring 1.5 cm in diameter with a faint filling defect in the distal common bile duct, status post biliary sphincterotomy and balloon extraction as described above Pancreatic duct intentionally not cannulated Recommendations: The findings of this examination were discussed with the patient as well as a family. At this time will continue with antibiotics and repeat labs in the morning. Diet will be advanced as tolerated.
--- NOTE | 2017-12-17 12:14 | FL ---
Fluoroscopy INDICATION: Pain FINDINGS: Fluoroscopy time: 120 seconds. Images obtained: 2. IMPRESSIONS: 1. Documentation of fluoroscopy.
[2017-12-17 12:25] LABS: Glucose,Whole Blood 178 mg/dL (75-99)
--- NOTE | 2017-12-17 14:43 | P.PN ---
Subjective Progress Note Date: 12/17/17 This is a 72 year-old female one of with a previous medical history significant for hypertension and hypertensive cardiovascular disease, hyperlipidemia, diabetes mellitus type 2, was recently hospitalized because of episode of chest pain and she was followed as an outpatient in our office and she was scheduled for stress test an outpatient, patient was in her state of health till yesterday at around 2 pm when she suddenly developed to have significant pain in the bilateral flank areas,without any abdominal pain , she denied any nausea, vomiting or diarrhea, she did not know that she had a temperature, she ended up coming to the ER at [facility] with increased bilteral flank pain and she was found to have fever with sepsis picture along with elevated LFTs and had CT scan of the abdomen and pelvis that showed dilated CBD with pancreatic ducts without evidence of any obstruction, she was seen by GI and recommended for her to be started on IV ABX in the form of Vancomycin and Zosyn and the plan is to go fr ERCP on Sunday. 12/16: Patient is feeling a lot better today she denies any chest pain, shortness of breath, she has no abdominal pain, nausea, vomiting, she would be started on soft diet this afternoon as to be placed on nothing per mouth after midnight so she can go for ERCP tomorrow morning. 12/17: Patient is scheduled for ERCP today with Dr. Kylah Abdullahi finding a dilated common bile duct measuring 1.5 cm in diameter with a faint filling defect in the distal common bile duct, status post biliary sphincterotomy. Plan is to continue antibiotics and repeat labs in the morning. Patient's diet will be advanced as tolerated. Patient is followed by Dr. Rosado. She is still on vancomycin and Zosyn. Cultures showing no growth after 48 hours. Urine culture is positive for 50 200,000 colonies of Staphylococcus epidermidis. Objective - Vital Signs Vital signs: Vital Signs Temp 96.8 F L 12/17/17 07:00 Pulse 70 12/17/17 07:00 Resp 16 12/17/17 07:00 BP 143/76 12/17/17 07:00 Pulse Ox 95 12/17/17 07:00 Intake & Output 12/16/17 12/17/17 12/17/17 18:59 06:59 18:59 Intake Total 20 Balance 20 Weight 78 kg Intake: IV 20 0.9 Nacl- @ 10 ml/hr 20 Other: Voiding Method Toilet # Voids 1 1 - Exam General appearance: average body habitus, no acute distress - EENT Eyes: anicteric sclerae, EOMI, PERRLA, no ptosis, no scleral icterus, normal appearance ENT: hearing grossly normal, NA/AT, normal oropharynx, no thrush Ears: bilateral: normal - Neck Neck: no lymphadenopathy, normal ROM, no rigidity, no stridor, no thyromegaly Carotids: bilateral: upstroke normal Thyroid: bilateral: normal size - Respiratory Respiratory: bilateral: diminished, negative: dullness, rales, rhonchi, wheezing , prolonged expiration, prolonged inspiration - Cardiovascular Rhythm: regular Heart sounds: normal: S1, S2 Abnormal Heart Sounds: systolic murmur, no S3 Gallop, no S4 Gallop - Gastrointestinal General gastrointestinal: normal bowel sounds, soft, no splenomegaly, no tenderness, no umbilical hernia, no ventral hernia - Integumentary Integumentary: normal, normal turgor - Neurologic Neurologic: CNII-XII intact - Musculoskeletal Musculoskeletal: gait normal, strength equal bilaterally - Psychiatric Psychiatric: A&O x's 3, appropriate affect, intact judgment & insight - Labs CBC & Chem 7: 12/17/17 07:58 12/17/17 07:58 Labs: Abnormal Lab Results - Last 24 Hours (Table) 12/15/17 12/16/17 12/16/17 Range/Units 04:23 11:56 16:54 Chloride (98-107) mmol/L Glucose (74-99) mg/dL POC Glucose (mg/dL) 184 H 167 H (75-99) mg/dL Hemoglobin A1c 7.0 H (4.0-6.0) % Total Bilirubin (0.2-1.3) mg/dL AST (14-36) U/L ALT (9-52) U/L Alkaline Phosphatase (38-126) U/L 12/16/17 12/17/17 12/17/17 Range/Units 20:19 02:06 07:29 Chloride (98-107) mmol/L Glucose (74-99) mg/dL POC Glucose (mg/dL) 194 H 164 H 186 H (75-99) mg/dL Hemoglobin A1c (4.0-6.0) % Total Bilirubin (0.2-1.3) mg/dL AST (14-36) U/L ALT (9-52) U/L Alkaline Phosphatase (38-126) U/L 12/17/17 Range/Units 07:58 Chloride 108 H (98-107) mmol/L Glucose 184 H (74-99) mg/dL POC Glucose (mg/dL) (75-99) mg/dL Hemoglobin A1c (4.0-6.0) % Total Bilirubin 2.8 H (0.2-1.3) mg/dL AST 78 H (14-36) U/L ALT 126 H (9-52) U/L Alkaline Phosphatase 233 H (38-126) U/L Microbiology - Last 24 Hours (Table) 12/14/17 17:05 Urine Culture - Final Urine,Voided Staphylococcus epidermidis 12/14/17 17:05 Blood Culture - Preliminary Blood No Growth after 48 hours Assessment and Plan Plan: 1. Ascending cholangitis with possible CBD stone that had passed Vs other etiology. discontinue Lipitor and metformin, will start IVF with IV ABX in the form of Vancomycin and Zosyn, will repeat lactic acid and will follow up with GI for ERCP. 2. sepsis with possible cholangitis. continue with IVF, IV ABX. 3. Hypertension and hypertensive cardiovascular disease. will continue with Lisinopril 20 mg orally daily and Amlodipine 5 mg orally daily. 4. Hyperlipidemia. will discontinue Lipitor. 5. Diabetes Mellitus type 2 . will discontinue Glucovance and will start SSI. 6. Generalized anxiety disorder. will continue with xanax as needed. 7. Mild LV dysfunction. will continue with lisinopril and follow up with cardiology as an outpatient. 8. DVT prophylaxis. will continue with Heparin 5000 units sc q 12 h . 9. GI Prophylaxis. will continue with PPI. 10. No code status per her own wishes. Discharge plan: Impression and plan of care have been directed as dictated by the signing physician. Alka Gonsalez nurse practitioner acting as scribe for signing physician.
[2017-12-17] MEDS: ACETAMINOPHEN TAB 325 MG TAB PO PRN (15:25)
[2017-12-17 17:31] LABS: Glucose,Whole Blood 239 mg/dL (75-99)
[2017-12-17 20:54] LABS: Glucose,Whole Blood 219 mg/dL (75-99)
[2017-12-18] MEDS: VANCOMYCIN 1,500 MG in SODIUM CHLORIDE 0.9% 250 ML IVPB SCH ×2 (01:10→10:50)
[2017-12-18] MEDS: HEPARIN SODIUM,PORCINE 5,000 UNIT/ML 1 ML VIAL SQ SCH ×3 (01:10→08:23)
[2017-12-18 02:27] LABS: Glucose,Whole Blood 127 mg/dL (75-99)
[2017-12-18] MEDS: PIPERACILLIN-TAZOBACTAM 3.375 GM in DEXTROSE/WATER 1 50ML.BAG IVPB SCH (03:55)
[2017-12-18 07:38] LABS: Glucose,Whole Blood 164 mg/dL (75-99)
[2017-12-18] MEDS: INSULIN ASPART 100 UNIT/ML 1 ML 10 ML VIAL SQ SCH ×2 (08:20→12:43)
[2017-12-18] MEDS: ASPIRIN 325 MG TAB PO SCH (08:21)
[2017-12-18] MEDS: FAMOTIDINE 20 MG TAB PO SCH (08:21)
[2017-12-18] MEDS: LISINOPRIL 20 MG TAB PO SCH (08:21)
[2017-12-18] MEDS: amLODIPine 5 MG TAB PO SCH (08:21)
[2017-12-18 08:25] VITALS: BP 141/81; PULSE 71; RESP 18; TEMP 97.9
[2017-12-18 09:28] LABS: HCT 49.7 % (34.0-46.0); HGB 15.5 gm/dL (11.4-16.0); MCH 28.1 pg (25.0-35.0); MCHC 31.2 g/dL (31.0-37.0); MCV 90.1 fL (80.0-100.0); Mean Platelet Volume 6.9; Platelet Count 261 k/uL (150-450); RBC 5.52 m/uL (3.80-5.40); RDW 13.1 % (11.5-15.5); WBC 6.7 k/uL (3.8-10.6)
[2017-12-18 09:45] LABS: ALT 165 U/L (9-52); AST 149 U/L (14-36); Albumin 4.3 g/dL (3.5-5.0); Alkaline Phosphatase 328 U/L (38-126); Anion Gap 15 mmol/L; Blood Urea Nitrogen 8 mg/dL (7-17); Calcium 10.4 mg/dL (8.4-10.2); Carbon Dioxide 28 mmol/L (22-30); Chloride 103 mmol/L (98-107); Glucose 204 mg/dL (74-99); Potassium 3.8 mmol/L (3.5-5.1); Sodium 146 mmol/L (137-145); Total Bilirubin 4.5 mg/dL (0.2-1.3); Total Protein 7.7 g/dL (6.3-8.2)
[2017-12-18 12:12] LABS: Glucose,Whole Blood 259 mg/dL (75-99)
--- NOTE | 2017-12-18 13:15 | P.DS ---
Providers Date of admission: 12/14/17 20:06 Expected date of discharge: 12/18/17 Attending physician: Rhona Nettles Consults: 12/14/17 20:06 Consult Physician Urgent Consulting Provider: Garland Rosado Consult Reason/Comments: Sepsis, concern for ascending cholangitis Do you want consulting provider notified?: Already Contacted Consult Physician Urgent Consulting Provider: Kelly Abdullahi Consult Reason/Comments: Concern for ascending cholangitis, sepsis Do you want consulting provider notified?: Already Contacted Primary care physician: [facility] Course: This is a 72 year-old female one of with a previous medical history significant for hypertension and hypertensive cardiovascular disease, hyperlipidemia, diabetes mellitus type 2, was recently hospitalized because of episode of chest pain and she was followed as an outpatient in our office and she was scheduled for stress test an outpatient, patient was in her state of health till yesterday at around 2 pm when she suddenly developed to have significant pain in the bilateral flank areas,without any abdominal pain , she denied any nausea, vomiting or diarrhea, she did not know that she had a temperature, she ended up coming to the ER at [facility] with increased bilteral flank pain and she was found to have fever with sepsis picture along with elevated LFTs and had CT scan of the abdomen and pelvis that showed dilated CBD with pancreatic ducts without evidence of any obstruction, she was seen by GI and recommended for her to be started on IV ABX in the form of Vancomycin and Zosyn and the plan is to go fr ERCP on Sunday. 12/16: Patient is feeling a lot better today she denies any chest pain, shortness of breath, she has no abdominal pain, nausea, vomiting, she would be started on soft diet this afternoon as to be placed on nothing per mouth after midnight so she can go for ERCP tomorrow morning. 12/17: Patient is scheduled for ERCP today with Dr. Kylah Abdullahi finding a dilated common bile duct measuring 1.5 cm in diameter with a faint filling defect in the distal common bile duct, status post biliary sphincterotomy. Plan is to continue antibiotics and repeat labs in the morning. Patient's diet will be advanced as tolerated. Patient is followed by Dr. Rosado. She is still on vancomycin and Zosyn. Cultures showing no growth after 48 hours. Urine culture is positive for 50 200,000 colonies of Staphylococcus epidermidis. 12/18: Diet was advanced to a regular consistent carb this morning and has tolerated this. She has been cleared from GI for discharge. Her liver function tests remain elevated with a total bilirubin of 4.5, AST 149, ALT 165 and alkaline phosphatase 328. Patient will be discharged home today in stable condition with plan to repeat lab work on Sunday.. Discharge diagnoses: 1. Ascending cholangitis 2. sepsis with possible cholangitis. 3. Hypertension and hypertensive cardiovascular disease. 4. Hyperlipidemia. 5. Diabetes Mellitus type 2 . 6. Generalized anxiety disorder. 7. Mild LV dysfunction. will continue with lisinopril and follow up with cardiology as an outpatient. Discharge plan: home Impression and plan of care have been directed as dictated by the signing physician. Alka Gonsalez nurse practitioner acting as scribe for signing physician. Patient Condition at Discharge: Good Plan - Discharge Summary Discharge Rx Participant: Yes New Discharge Prescriptions: New Amoxic-Pot Clav 875-125Mg [Augmentin 875-125] 1 tab PO Q12HR #14 tablet glipiZIDE [Glucotrol] 5 mg PO AC-BID #60 tab Continue ALPRAZolam [Xanax] 0.25 mg PO TID PRN tab PRN Reason: Anxiety Aspirin 325 mg PO DAILY tab Lisinopril [Zestril] 20 mg PO DAILY #30 tab amLODIPine [Norvasc] 5 mg PO DAILY #30 tab Discontinued glipiZIDE/METFORMIN HCL [glipiZIDE/METFORMIN HCL 5-500 mg] 2 tab PO BID Atorvastatin [Lipitor] 40 mg PO HS #30 tab Discharge Medication List ALPRAZolam [Xanax] 0.25 mg PO TID PRN tab 12/01/17 [Rx] Aspirin 325 mg PO DAILY tab 12/01/17 [Rx] Lisinopril [Zestril] 20 mg PO DAILY #30 tab 12/01/17 [Rx] amLODIPine [Norvasc] 5 mg PO DAILY #30 tab 12/01/17 [Rx] Amoxic-Pot Clav 875-125Mg [Augmentin 875-125] 1 tab PO Q12HR #14 tablet [Rx] glipiZIDE [Glucotrol] 5 mg PO AC-BID #60 tab 12/18/17 [Rx] Follow up Appointment(s)/Referral(s): Dallas Durán MD [Primary Care Provider] - 12/25/17 10:30 am (With [facility]) Kelly Abdullahi MD [STAFF PHYSICIAN] - 01/07/18 1:00 pm Ambulatory/Diagnostic Orders: Amylase [LAB.AMB] Location: Determined By Patient Comprehensive Metabolic Panel [LAB.AMB] Location: Determined By Patient Lipase [LAB.AMB] Location: Determined By Patient Patient Instructions/Handouts: Urinary Tract Infection in Women (DC), ERCP ( Endoscopic Retrograde Cholangiopancreatography) (DC) Activity/Diet/Wound Care/Special Instructions: Cardiac, diabetic diet. Activity as tolerated.
--- NOTE | 2017-12-18 15:19 | P.PN ---
Subjective Progress Note Date: 12/18/17 Principal diagnosis: Choledocholithiasis ascending cholangitis Status post ERCP with sphincterotomy balloon stone extraction secondary to choledocholithiasis. Feels well. Anticipating discharge. Afebrile. White count 6.7. Denies abdominal pain. Tolerating diet. LFTs today total bilirubin 4.5. AST 149. ALT 165. Alkaline phosphatase 328. Objective - Vital Signs Vital signs: Vital Signs Temp 97.9 F 12/18/17 08:00 Pulse 71 12/18/17 08:00 Resp 18 12/18/17 08:00 BP 141/81 12/18/17 08:00 Pulse Ox 96 12/18/17 08:00 Intake & Output 12/17/17 12/18/17 12/18/17 18:59 06:59 18:59 Intake Total 400 Balance 400 Intake: IV 400 Other: # Voids 3 2 - Exam General appearance: The patient is alert, oriented, in no acute distress. HET: Head is normocephalic and atraumatic. Pupils are equal and reactive. Sclerae icterus. Oropharynx is clear without lesions. Neck: Supple without lymphadenopathy. Trachea midline. Heart: S1 S2. Regular rate and rhythm. Lungs: No crackles or wheezes are heard. Abdomen: Soft, nontender, nondistended with bowel sounds. No peritoneal signs. No palpable organomegaly or masses. Extremities: Normal skin color and turgor. No cyanosis, rash, ulceration, clubbing, or edema. Radial and pedal pulses are 2/4 bilaterally. Neurological: No focal deficits. Strength and sensation are grossly intact. - Labs CBC & Chem 7: 12/18/17 08:50 12/18/17 08:50 Labs: Abnormal Lab Results - Last 24 Hours (Table) 12/17/17 12/17/17 12/17/17 Range/Units 12:17 17:26 20:53 RBC (3.80-5.40) m/uL Hct (34.0-46.0) % Sodium (137-145) mmol/L Glucose (74-99) mg/dL POC Glucose (mg/dL) 178 H 239 H 219 H (75-99) mg/dL Calcium (8.4-10.2) mg/dL Total Bilirubin (0.2-1.3) mg/dL AST (14-36) U/L ALT (9-52) U/L Alkaline Phosphatase (38-126) U/L 12/18/17 12/18/17 12/18/17 Range/Units 02:09 07:36 08:50 RBC 5.52 H (3.80-5.40) m/uL Hct 49.7 H (34.0-46.0) % Sodium (137-145) mmol/L Glucose (74-99) mg/dL POC Glucose (mg/dL) 127 H 164 H (75-99) mg/dL Calcium (8.4-10.2) mg/dL Total Bilirubin (0.2-1.3) mg/dL AST (14-36) U/L ALT (9-52) U/L Alkaline Phosphatase (38-126) U/L 12/18/17 Range/Units 08:50 RBC (3.80-5.40) m/uL Hct (34.0-46.0) % Sodium 146 H (137-145) mmol/L Glucose 204 H (74-99) mg/dL POC Glucose (mg/dL) (75-99) mg/dL Calcium 10.4 H (8.4-10.2) mg/dL Total Bilirubin 4.5 H (0.2-1.3) mg/dL AST 149 H (14-36) U/L ALT 165 H (9-52) U/L Alkaline Phosphatase 328 H (38-126) U/L Microbiology - Last 24 Hours (Table) 12/14/17 17:05 Blood Culture - Preliminary Blood No Growth after 72 hours Assessment and Plan (1) Choledocholithiasis Narrative/Plan: Status post ERCP with sphincter unable and stone extraction. Status: Acute Code(s): K80.50 - CALCULUS OF BILE DUCT W/O CHOLANGITIS OR CHOLECYST W/O OBST SNOMED Code(s): 385027532 (2) Obstructive jaundice Status: Acute Code(s): K83.8 - OTHER SPECIFIED DISEASES OF BILIARY TRACT SNOMED Code(s): 33893772 (3) Ascending cholangitis Status: Acute Code(s): K83.0 - CHOLANGITIS SNOMED Code(s): 90853479 (4) Sepsis Status: Acute Code(s): A41.9 - SEPSIS, UNSPECIFIED ORGANISM SNOMED Code(s): 09038951 Plan: 1. Dr. Abdullahi has reviewed morning chemistries and is aware of elevated liver enzymes suspected secondary to edema. Dr. Abdullahi is agreeable for discharge from a GI standpoint. Repeat liver enzymes in 3-5 days and follow with PCP in 3 -5 days. Antibiotics recommended on discharge. Assessment and plan of care discussed with Dr. Abdullahi
== END 2017-12-18 13:16 | disposition home or self-care (01) | DRG 872 ==
LOC: EC 16:10 → 6ICU 20:06 → 4MS4W 12-16 22:40
PROVIDERS: ADMIT Internal Medicine; ATTEND Internal Medicine
PROC: 0FC98ZZ Extirpation of Matter from Common Bile Duct, Via Natural or Artificial Opening Endoscopic (ICD-10-PCS; principal; 2017-12-17 07:30)
DX: A41.9 Sepsis, unspecified organism (principal); E11.9 Type 2 diabetes mellitus without complications; I11.9 Hypertensive heart disease without heart failure; K91.86 Retained cholelithiasis following cholecystectomy; E78.5 Hyperlipidemia, unspecified; F41.1 Generalized anxiety disorder; K21.9 Gastro-esophageal reflux disease without esophagitis; M17.0 Bilateral primary osteoarthritis of knee; R35.0 Frequency of micturition; Z79.84 Long term (current) use of oral hypoglycemic drugs; Z79.82 Long term (current) use of aspirin; Z79.899 Other long term (current) drug therapy; Z90.49 Acquired absence of other specified parts of digestive tract
CPT/HCPCS: 36415; 43260; 43262; 43277; 71045; 74177; 74328; 80051; 80053; 80202; 81001; 82248; 83036; 83605; 83735; 84100; 84132; 85025; 85027; 85610; 85730; 86850; 86900; 86901; 87040; 87077; 87086; 87186; 93005; 96361; 96365; 96366; 96374; 96375; 99291

== ENCOUNTER 2019-11-13 09:45 | Observation (INO) | payer MEDICARE ==
[2019-11-13] MEDS ORDERED: ASPIRIN 81 MG PO STA (10:23)
--- NOTE | 2019-11-13 10:53 | ED ---
SOB HPI - General Chief Complaint: Shortness of Breath Stated Complaint: SOB/dizzy/lightheaded Time Seen by Provider: 11/13/19 10:13 Source: patient Mode of arrival: ambulatory Limitations: no limitations - History of Present Illness Initial Comments: Patient is 74-year-old female with history of type 2 diabetes and hypertension presenting to emergency Department with a chief complaint of shortness of breath. She states this has been gradually increasing severity over the last few days. Today she reports an episode of lightheadedness that prompted her to come to the ED for evaluation. She also reports midsternal chest tightness without radiation. She does report dyspnea on exertion but denies any wheezing. She does report some midsternal chest heaviness. Denies any blurred vision, one-sided weakness or paresthesias. Denies any back pain or abdominal pain. denies any diaphoretic episodes nausea or vomiting. Not a smoker. No night swe ats fevers or chills. No history of early cardiac . She states her blood pressure is elevated in the ED due to increased anxiety of being here. - Related Data Home Medications Medication Instructions Recorded Confirmed glipiZIDE/METFORMIN HCL 1 tab PO BID 11/13/19 11/13/19 [glipiZIDE/METFORMIN HCL 5-500 mg] Previous Rx's Medication Instructions Recorded Lisinopril [Zestril] 20 mg PO DAILY #30 tab 12/01/17 Allergies Allergy/AdvReac Type Severity Reaction Status Date / Time No Known Allergies Allergy Verified 11/13/19 11:15 Review of Systems ROS Statement: Those systems with pertinent positive or pertinent negative responses have been documented in the HPI. ROS Other: All systems not noted in ROS Statement are negative. Past Medical History Past Medical History: Diabetes Mellitus, Osteoarthritis (OA) Additional Past Medical History / Comment(s): NIDDM type II, arthritis bilateral knees. History of Any Multi-Drug Resistant Organisms: None Reported Past Surgical History: Cholecystectomy Additional Past Surgical History / Comment(s): Bilateral cataract removals with lens implants. Past Anesthesia/Blood Transfusion Reactions: No Reported Reaction Additional Past Anesthesia/Blood Transfusion Reaction / Comment(s): No transfusion history Past Psychological History: No Psychological Hx Reported Smoking Status: Never smoker Past Alcohol Use History: None Reported Past Drug Use History: None Reported - Past Family History Father Family Medical History: Vascular Disorder Additional Family Medical History / Comment(s): Father from a ruptured cerebral aneurysm in his 80s. Mother Family Medical History: CVA/TIA Additional Family Medical History / Comment(s): Mother is 94 yrs old. Brother(s) Family Medical History: No Reported History Sister(s) Family Medical History: No Reported History Daughter(s) Family Medical History: Diabetes Mellitus Son(s) History Unknown: Yes (Diverticular disease) Family Medical History: No Reported History (Patient has one son no major health issues.) General Exam Limitations: no limitations General appearance: alert, in no apparent distress Head exam: Present: atraumatic, normocephalic, normal inspection Eye exam: Present: normal appearance, PERRL, EOMI Pupils: Present: normal accommodation ENT exam: Present: normal exam, normal oropharynx, mucous membranes moist, TM's normal bilaterally, normal external ear exam Neck exam: Present: normal inspection, full ROM. Absent: lymphadenopathy Respiratory exam: Present: normal lung sounds bilaterally. Absent: respiratory distress, wheezes, rales Cardiovascular Exam: Present: regular rate, normal rhythm, normal heart sounds Extremities exam: Present: normal inspection, full ROM, normal capillary refill Back exam: Present: normal inspection, full ROM Neurological exam: Present: alert, oriented X3, CN II-XII intact Psychiatric exam: Present: normal affect, normal mood Skin exam: Present: warm, dry, intact, normal color Course Vital Signs 11/13/19 11/13/19 11/13/19 09:48 11:36 12:59 Temperature 97.3 F L Pulse Rate 87 79 68 Respiratory 26 H 18 18 Rate Blood Pressure 200/93 166/81 167/89 O2 Sat by Pulse 100 98 99 Oximetry Medical Decision Making - Medical Decision Making Patient is a 74-year-old female with history of type 2 diabetes and hypertension presenting to emergency Department with chief complaint of shortness of breath. Physical examination is unremarkable. EKG shows PAC but no ST changes. Initial troponin negative. CBC unremarkable. Patient has hypomagnesemia and treated with 2 mg of magnesium sulfate. Patient does have a positive d-dimer. CT of the chest obtained showing an artifact in the right main pulmonary artery and upper lumbar proximal branches, pulmonary embolism cannot be ruled out. Patient will be admitted for further medical management. Case discussed with Dr. Villagran Negative physician is . Dr. Farris consulted - Lab Data Result diagrams: 11/13/19 10:30 11/13/19 10:30 Lab Results 11/13/19 11/13/19 11/13/19 Range/Units 10:30 10:30 10:30 WBC 6.4 (3.8-10.6) k/uL RBC 5.28 (3.80-5.40) m/uL Hgb 15.4 (11.4-16.0) gm/dL Hct 46.5 H (34.0-46.0) % MCV 88.1 (80.0-100.0) fL MCH 29.2 (25.0-35.0) pg MCHC 33.1 (31.0-37.0) g/dL RDW 13.2 (11.5-15.5) % Plt Count 239 (150-450) k/uL Neutrophils % 70 % Lymphocytes % 24 % Monocytes % 4 % Eosinophils % 0 % Basophils % 1 % Neutrophils # 4.5 (1.3-7.7) k/uL Lymphocytes # 1.5 (1.0-4.8) k/uL Monocytes # 0.3 (0-1.0) k/uL Eosinophils # 0.0 (0-0.7) k/uL Basophils # 0.0 (0-0.2) k/uL PT 10.5 (9.0-12.0) sec INR 1.0 (<1.2) APTT 24.6 (22.0-30.0) sec D-Dimer 1.10 H (<0.60) mg/L FEU Sodium 142 (137-145) mmol/L Potassium 3.8 (3.5-5.1) mmol/L Chloride 109 H (98-107) mmol/L Carbon Dioxide 20 L (22-30) mmol/L Anion Gap 13 mmol/L BUN 11 (7-17) mg/dL Creatinine 0.65 (0.52-1.04) mg/dL Est GFR (CKD-EPI)AfAm >90 (>60 ml/min/1.73 sqM) Est GFR (CKD-EPI)NonAf 88 (>60 ml/min/1.73 sqM) Glucose 227 H (74-99) mg/dL Calcium 10.5 H (8.4-10.2) mg/dL Magnesium 1.4 L (1.6-2.3) mg/dL Total Bilirubin 1.0 (0.2-1.3) mg/dL AST 34 (14-36) U/L ALT 21 (4-34) U/L Alkaline Phosphatase 85 (38-126) U/L Troponin I (0.000-0.034) ng/mL Total Protein 8.3 H (6.3-8.2) g/dL Albumin 5.0 (3.5-5.0) g/dL 11/13/19 Range/Units 10:30 WBC (3.8-10.6) k/uL RBC (3.80-5.40) m/uL Hgb (11.4-16.0) gm/dL Hct (34.0-46.0) % MCV (80.0-100.0) fL MCH (25.0-35.0) pg MCHC (31.0-37.0) g/dL RDW (11.5-15.5) % Plt Count (150-450) k/uL Neutrophils % % Lymphocytes % % Monocytes % % Eosinophils % % Basophils % % Neutrophils # (1.3-7.7) k/uL Lymphocytes # (1.0-4.8) k/uL Monocytes # (0-1.0) k/uL Eosinophils # (0-0.7) k/uL Basophils # (0-0.2) k/uL PT (9.0-12.0) sec INR (<1.2) APTT (22.0-30.0) sec D-Dimer (<0.60) mg/L FEU Sodium (137-145) mmol/L Potassium (3.5-5.1) mmol/L Chloride (98-107) mmol/L Carbon Dioxide (22-30) mmol/L Anion Gap mmol/L BUN (7-17) mg/dL Creatinine (0.52-1.04) mg/dL Est GFR (CKD-EPI)AfAm (>60 ml/min/1.73 sqM) Est GFR (CKD-EPI)NonAf (>60 ml/min/1.73 sqM) Glucose (74-99) mg/dL Calcium (8.4-10.2) mg/dL Magnesium (1.6-2.3) mg/dL Total Bilirubin (0.2-1.3) mg/dL AST (14-36) U/L ALT (4-34) U/L Alkaline Phosphatase (38-126) U/L Troponin I <0.012 (0.000-0.034) ng/mL Total Protein (6.3-8.2) g/dL Albumin (3.5-5.0) g/dL - EKG Data EKG Comments: No ST changes, PSVT Ventricular rate 79, IA interval 200, Qrs duration 66, QTC 456. Disposition Clinical Impression: Shortness of breath, Pulmonary embolism Disposition: ADMITTED IP TO THIS HOSP Condition: Stable Instructions (If sedation given, give patient instructions): Mariely engel (ED) Additional Instructions: Patient will be admitted Is patient prescribed a controlled substance at d/c from ED?: No Referrals: Dallas Durán MD [Primary Care Provider] - 1-2 days Time of Disposition: 14:40
[2019-11-13 11:01] LABS: Basophils % (A) 1 %; Eosinophils % (A) 0 %; HCT 46.5 % (34.0-46.0); HGB 15.4 gm/dL (11.4-16.0); Lymphocytes # (A) 1.5 k/uL (1.0-4.8); Lymphocytes % (A) 24 %; MCH 29.2 pg (25.0-35.0); MCHC 33.1 g/dL (31.0-37.0); MCV 88.1 fL (80.0-100.0); Mean Platelet Volume 7.4; Monocytes # (A) 0.3 k/uL (0-1.0); Monocytes % (A) 4 %; Neutrophils # (A) 4.5 k/uL (1.3-7.7); Neutrophils % (A) 70 %; Platelet Count 239 k/uL (150-450); RBC 5.28 m/uL (3.80-5.40); RDW 13.2 % (11.5-15.5); WBC 6.4 k/uL (3.8-10.6)
--- NOTE | 2019-11-13 11:07 | XR ---
EXAMINATION TYPE: XR chest 2V DATE OF EXAM: 11/13/2019 COMPARISON: 12/25/2017 HISTORY: Chest heaviness and lightheadedness TECHNIQUE: Frontal and lateral views of the chest are obtained. FINDINGS: There is no focal air space opacity, pleural effusion, or pneumothorax seen. The cardiac silhouette size is upper limits of normal size. The osseous structures are intact. Cholecystectomy clips are noted. IMPRESSION: No acute cardiopulmonary process.
[2019-11-13 11:16] LABS: ALT 21 U/L (4-34); AST 34 U/L (14-36); African American GFR (CKD) >90 (>60 ml/min/1.73 sqM); Alkaline Phosphatase 85 U/L (38-126); Anion Gap 13 mmol/L; Blood Urea Nitrogen 11 mg/dL (7-17); Calcium 10.5 mg/dL (8.4-10.2); Carbon Dioxide 20 mmol/L (22-30); Chloride 109 mmol/L (98-107); Glucose 227 mg/dL (74-99); Magnesium 1.4 mg/dL (1.6-2.3); Non-African American GFR(CKD) 88 (>60 ml/min/1.73 sqM); Potassium 3.8 mmol/L (3.5-5.1); Sodium 142 mmol/L (137-145); Total Protein 8.3 g/dL (6.3-8.2)
[2019-11-13 11:17] LABS: Partial Thromboplastin Time 24.6 sec (22.0-30.0); Prothrombin Time 10.5 sec (9.0-12.0)
[2019-11-13 11:37] VITALS: RESP 18
[2019-11-13 11:59] LABS: D-Dimer 1.1 mg/L FEU (<0.60)
[2019-11-13] MEDS: MAGNESIUM SULFATE-D5W PMX 1 GM in DEXTROSE/WATER 1 100ML.BAG IVPB SCH ×2 (12:57→14:08)
--- NOTE | 2019-11-13 13:29 | CT ---
EXAMINATION TYPE: CT chest angio for PE DATE OF EXAM: 11/13/2019 COMPARISON: 11/30/2017 HISTORY: SOB, Dizzy, Lightheaded, PE, D-dimer CT DLP: 359.4 mGycm Automated exposure control for dose reduction was used. CONTRAST: CT Chest for pulmonary embolism performed with without and with IV Contrast, patient injected with 10 0 ml mL of Isovue 370. FINDINGS: LUNGS: The lungs are grossly clear, there is no concerning parenchymal mass or nodule identified. Min imal bibasilar subsegmental dependent atelectasis is noted. There is no pleural effusion or pneumotho rax seen. The tracheobronchial tree is patent. MEDIASTINUM: There is artifact involving the right suprahilar perihilum limiting assessment of the ri ght main pulmonary artery and its upper lobe branch proximally. Remaining portion of the pulmonary ar teries demonstrate Satisfactory enhancement of the pulmonary artery and its branches, there is no CT evidence for pulmonary embolism. Right hilar adenopathy is seen with the largest conglomeration of ly mph nodes measuring 1.5 x 1.5 cm stable. Heart is mildly enlarged. No pericardial effusion. OTHER: Moderate multilevel degenerative changes of the thoracic spine are noted within exaggerated t horacic kyphosis. Gallbladder surgically absent. There is a deformity of the anterior right rib cage suggestive of a healing fracture correlate for history of trauma. Arthropathy of the shoulders noted. IMPRESSION: 1. Due to artifact there is limitation with regard to the right main pulmonary artery and upper lobe proximal branches. Could not exclude a small pulmonary embolism on image 49. This could be artifactu al. Remaining portion of the pulmonary arterial system demonstrates normal enhancement. 2. No focal consolidation, pleural effusion or pneumothorax. Minimal bibasilar subsegmental dependent atelectasis. 3. Nonspecific right hilar adenopathy. Short-term follow-up could be performed to evaluate for progre ssion/resolution.
[2019-11-13] MEDS ORDERED: HEPARIN SODIUM,PORCINE 5,000 UNIT/ML 1 ML VIAL IV PRN (14:33)
[2019-11-13] MEDS ORDERED: HEPARIN SODIUM,PORCINE 10,000 UNIT/ML 1 ML VIAL IV ONE (14:33)
[2019-11-13] MEDS ORDERED: ONDANSETRON 4 MG/2 ML VIAL IVP PRN (14:41)
[2019-11-13] MEDS ORDERED: HYDROcodone/APAP 5-325MG 1 EACH TAB PO PRN (14:41)
[2019-11-13] MEDS ORDERED: ALPRAZolam 0.25 MG TAB PO PRN (14:41)
[2019-11-13] MEDS ORDERED: Acetaminophen-Codeine 300-30mg TAB PO PRN (14:41)
[2019-11-13] MEDS ORDERED: NALOXONE 0.4 MG/ML 1 ML VIAL IV PRN (14:41)
[2019-11-13] MEDS ORDERED: MORPHINE ORAL SOLN 10 MG/5 ML CUP PO PRN (14:41)
[2019-11-13] MEDS ORDERED: HEPARIN SOD,PORK IN 0.45% NACL 25,000 UNIT in 0.45% NACL 1 250ML.BAG IV SCH (14:45)
[2019-11-13] MEDS ORDERED: SODIUM CHLORIDE 0.9% 1,000 ML IV SCH (14:45)
[2019-11-13 17:06] LABS: Glucose,Whole Blood 111 mg/dL (75-99)
--- NOTE | 2019-11-13 17:26 | P.CNPUL ---
History of Present Illness Consult date: 11/13/19 Reason for consult: pulmonary embolism History of present illness: This is a 74-year-old female patient, diabetic and has history of hypertension who came into the hospital because of feeling lightheaded, flushing, and feeling weak. She was having hot and cold symptoms and intermittent shortness of breath. No prolonged immobilization. No history of any swelling lower extremity. Pain or tenderness. No recent surgeries. No cough no sputum production. No pleurisy. No hemoptysis. No personal or family history of DVT or pulmonary embolism. Blood work was done and the d-dimer came back at 1.1. The patient was given a CT angiogram. I reviewed the CT angios. There is a questionable clot in the right upper lobe pulmonary artery segmental branch, image 49. There is also artifact involving the right suprahilar/perihilar region limiting our ability to evaluate the right main pulmonary artery and the upper lobes proximally. The lungs were grossly clear. There is moderate multilevel degenerative changes involving the thoracic spine. Patient is currently on room air oxygen. She has no specific complaints. She is afebrile. Review of Systems Constitutional: Reports weakness Eyes: denies as per HPI, denies blurred vision, denies bulging eye, denies decreased vision, denies diplopia, denies discharge, denies dry eye, denies irritation, denies itching, denies pain, denies photophobia, denies loss of peripheral vision, denies loss of vision, denies tunnel vision/blind spots Ears: deny: decreased hearing, ear discharge, earache, tinnitus Ears, nose, mouth and throat: Reports as per HPI Breasts: absent: as per HPI, change in shape, gynecomastia, masses, nipple discharge, pain, skin changes, swelling Cardiovascular: Reports as per HPI Respiratory: Reports dyspnea Gastrointestinal: Reports as per HPI Genitourinary: Reports as per HPI Menstruation: Reports as per HPI Musculoskeletal: Reports as per HPI Musculoskeletal: absent: ankle pain, ankle stiffness, ankle swelling, as per HPI, elbow pain, elbow stiffness, elbow swelling, foot pain, foot stiffness, foot swelling, hand pain, hand stiffness, hand swelling, hip pain, hip stiffness, hip swelling, knee pain, knee stiffness, knee swelling, shoulder pain, shoulder stiffness, shoulder swelling, wrist pain, wrist stiffness, wrist swelling Integumentary: Reports as per HPI Neurological: Reports as per HPI Psychiatric: Reports as per HPI Endocrine: Reports fatigue, Reports flushing Hematologic/Lymphatic: Reports as per HPI Allergic/Immunologic: Reports as per HPI Past Medical History Past Medical History: Diabetes Mellitus, Osteoarthritis (OA) Additional Past Medical History / Comment(s): NIDDM type II, arthritis bilateral knees. IBS History of Any Multi-Drug Resistant Organisms: None Reported Past Surgical History: Cholecystectomy Additional Past Surgical History / Comment(s): Bilateral cataract removals with lens implants. Past Anesthesia/Blood Transfusion Reactions: No Reported Reaction Additional Past Anesthesia/Blood Transfusion Reaction / Comment(s): No transfusion history Past Psychological History: No Psychological Hx Reported Smoking Status: Never smoker Past Alcohol Use History: None Reported Past Drug Use History: None Reported - Past Family History Father Family Medical History: Vascular Disorder Additional Family Medical History / Comment(s): Father from a ruptured cerebral aneurysm in his 80s. Mother Family Medical History: CVA/TIA Additional Family Medical History / Comment(s): Mother is 94 yrs old. Brother(s) Family Medical History: No Reported History Sister(s) Family Medical History: No Reported History Daughter(s) Family Medical History: Diabetes Mellitus Son(s) History Unknown: Yes Family Medical History: No Reported History Medications and Allergies Home Medications Medication Instructions Recorded Confirmed Type Lisinopril [Zestril] 20 mg PO DAILY #30 tab 12/01/17 11/13/19 Rx Rivaroxaban [Xarelto Starter Pack] 0 mg PO DIRECTED 30 Days #1 pack 11/13/19 Rx glipiZIDE/METFORMIN HCL 1 tab PO BID 11/13/19 11/13/19 History [glipiZIDE/METFORMIN HCL 5-500 mg] Allergies Allergy/AdvReac Type Severity Reaction Status Date / Time No Known Allergies Allergy Verified 11/13/19 11:15 Physical Exam Vitals: Vital Signs Temp Pulse Pulse Resp BP BP Pulse Ox 11/13/19 17:00 97.5 F L 79 18 175/95 100 11/13/19 16:59 97.5 F L 79 18 175/95 100 11/13/19 16:41 77 18 155/84 100 11/13/19 12:59 68 18 167/89 99 11/13/19 11:36 79 18 166/81 98 01/09/20 09:48 97.3 F L 87 26 H 200/93 100 Intake and Output 11/13/19 11/13/19 11/13/19 06:59 14:59 22:59 Other: Weight 80.739 kg 80.739 kg The patient appeared well nourished and normally developed. Vital signs as documented. Head exam is unremarkable. No scleral icterus or corneal arcus n oted. Neck is without jugular venous distension, thyromegaly, or carotid bruits. Carotid upstrokes are brisk bilaterally. Lungs are clear to auscultation and percussion. Cardiac exam reveals the PMI to be normally sized and situated. Rhythm is regular. First and second heart sounds normal. No murmurs, rubs or gallops. Abdominal exam reveals normal bowel sounds, no masses, no organomegaly and no aortic enlargement. Extremities are nonedematous and both femoral and pedal pulses are normal.Examination of the skin revealed no evidence of significant rashes, suspicious appearing nevi or other concerning lesions. Neurologically awake and alert and is no focal neurological deficits. Results - Laboratory Findings CBC and BMP: 11/13/19 10:30 11/13/19 10:30 PT/INR, D-dimer PT 10.5 sec (9.0-12.0) 11/13/19 10:30 INR 1.0 (<1.2) 11/13/19 10:30 D-Dimer 1.10 mg/L FEU (<0.60) H 11/13/19 10:30 Abnormal lab findings: Abnormal Labs 11/13/19 11/13/19 11/13/19 10:30 10:30 10:30 Hct 46.5 H D-Dimer 1.10 H Chloride 109 H Carbon Dioxide 20 L Glucose 227 H POC Glucose (mg/dL) Calcium 10.5 H Magnesium 1.4 L Total Protein 8.3 H 11/13/19 17:04 Hct D-Dimer Chloride Carbon Dioxide Glucose POC Glucose (mg/dL) 111 H Calcium Magnesium Total Protein - Diagnostic Findings CT scan - chest: image reviewed Assessment and Plan Plan: 1. Intermittent shortness of breath with multitude of other symptoms such as lightheadedness and generalized fatigue and weakness, with a low overall clin ical suspicion for poor embolism and a well's score of 0. CT angiogram was reviewed and there is an artifact in the right hilar area and the pulmonary embolism was also documented in the right hilar/upper lobe segmental branch, image 49. D-dimer is slightly elevated at 1.1. Overall suspicion for pulmonary embolism is quite low. This diagnosis was made on a very weak clinical grounds. Currently on IV heparin. 2 diabetes mellitus 3 hypertension Plan Obtain Doppler of the lower extremities Obtain echocardiogram Considered a very short anticoagulation for 3 months if the workup including a Doppler and echo come back negative. She was made aware that this diagnosis was made on very weak clinically grounds.
--- NOTE | 2019-11-13 19:07 | US ---
EXAMINATION TYPE: US venous doppler duplex LE DATE OF EXAM: 11/13/2019 6:09 PM COMPARISON: NONE CLINICAL HISTORY: rule out DVT. Possible PE, SOB, patient on Heparin SIDE PERFORMED: bilateral TECHNIQUE: The lower extremity deep venous system is examined utilizing real time linear array sonog chase with graded compression, doppler sonography and color-flow sonography. VESSELS IMAGED: External Iliac Vein (EIV) Common Femoral Vein Deep Femoral Vein Greater Saphenous Vein * Femoral Vein Popliteal Vein Small Saphenous Vein * Proximal Calf Veins (* superficial vessels) Right lower extremity: No evidence of DVT. Complex anechoic area popliteal fossa = 6.1 x 1.5 x 3.6cm , probable Rogers's cyst Left lower extremity: No evidence of DVT. Complex anechoic area popliteal fossa = 6.1 x 1.8 x 2.7cm, probable Rogers's cyst Findings: Grayscale, color doppler, spectral doppler imaging performed of the deep veins of the lower extremities. There is normal flow, compressibility, vascular waveforms. Impression: 1. Negative for DVT, bilateral lower extremities. 2. Bilateral small Rogers cysts.
[2019-11-13 20:34] LABS: Glucose,Whole Blood 133 mg/dL (75-99)
[2019-11-14 05:42] LABS: Basophils % (A) 1 %; Eosinophils # (A) 0.1 k/uL (0-0.7); Eosinophils % (A) 1 %; HCT 43.2 % (34.0-46.0); Lymphocytes # (A) 1.9 k/uL (1.0-4.8); Lymphocytes % (A) 29 %; MCH 29.1 pg (25.0-35.0); MCHC 32.4 g/dL (31.0-37.0); MCV 89.8 fL (80.0-100.0); Mean Platelet Volume 7.3; Monocytes # (A) 0.4 k/uL (0-1.0); Monocytes % (A) 6 %; Neutrophils # (A) 4.1 k/uL (1.3-7.7); Neutrophils % (A) 62 %; Platelet Count 178 k/uL (150-450); RBC 4.81 m/uL (3.80-5.40); RDW 13.5 % (11.5-15.5); WBC 6.6 k/uL (3.8-10.6)
[2019-11-14 06:06] LABS: Glucose,Whole Blood 144 mg/dL (75-99)
[2019-11-14 08:55] VITALS: TEMP 97.4
[2019-11-14] MEDS ORDERED: LISINOPRIL 20 MG TAB PO SCH (10:15)
[2019-11-14] MEDS ORDERED: glipiZIDE 5 MG TAB PO SCH (10:15)
[2019-11-14] MEDS ORDERED: metFORMIN 500 MG TAB PO SCH (10:30)
[2019-11-14 11:46] LABS: Glucose,Whole Blood 205 mg/dL (75-99)
[2019-11-14] MEDS ORDERED: INSULIN ASPART (NovoLOG) 100 UNIT/ML VIAL SQ SCH (12:30)
[2019-11-14 12:44] VITALS: BP 147/85; PULSE 88
--- NOTE | 2019-11-14 12:48 | ECHOF ---
Referral Reason:LV function MEASUREMENTS -------- HEIGHT: 170.2 cm WEIGHT: 78.9 kg BP: 148/74 RVIDd: 3.0 cm (< 3.3) IVSd: 1.2 cm (0.6 - 1.1) LVIDd: 4.5 cm (3.9 - 5.3) LVPWd: 1.2 cm (0.6 - 1.1) IVSs: 1.6 cm LVIDs: 3.3 cm LVPWs: 1.6 cm LA Diam: 3.4 cm (2.7 - 3.8) LAESV Index (A-L): 21.44 ml/m Ao Diam: 3.2 cm (2.0 - 3.7) AV Cusp: 2.1 cm (1.5 - 2.6) MV EXCURSION: 15.792 mm (> 18.000) MV EF SLOPE: 66 mm/s (70 - 150) EPSS: 1.2 cm MV E Omega: 0.47 m/s MV DecT: 412 ms MV A Omega: 0.81 m/s MV E/A Ratio: 0.58 RAP: 5.00 mmHg RVSP: 24.94 mmHg TAPSE: 17.70 mm FINDINGS -------- Sinus rhythm. This was a technically good study. The left ventricular size is normal. There is borderline concentric left ventricular hypertrophy. Overall left ventricular systolic function is low-normal with, an EF between 50 - 55 %. The right ventricle is normal in size. Normal LA size by volume 22+/-6 ml/m2. The right atrium is normal in size. Interatrial and interventricular septum intact. The aortic valve is trileaflet and appears structurally normal. Mild mitral regurgitation is present. Mild tricuspid regurgitation present. Right ventricular systolic pressure is normal at < 35 mmHg. Trace/mild (physiologic) pulmonic regurgitation. The aortic root size is normal. Normal inferior vena cava with normal inspiratory collapse consistent with estimated right atrial pre ssure of 5 mmHg. There is no pericardial effusion. CONCLUSIONS -------- 1. Sinus rhythm. 2. This was a technically good study. 3. The left ventricular size is normal. 4. There is borderline concentric left ventricular hypertrophy. 5. Overall left ventricular systolic function is low-normal with, an EF between 50 - 55 %. 6. The right ventricle is normal in size. 7. Normal LA size by volume 22+/-6 ml/m2. 8. The right atrium is normal in size. 9. Interatrial and interventricular septum intact. 10. The aortic valve is trileaflet and appears structurally normal. 11. Mild mitral regurgitation is present. 12. Mild tricuspid regurgitation present. 13. Right ventricular systolic pressure is normal at < 35 mmHg. 14. Trace/mild (physiologic) pulmonic regurgitation. 15. The aortic root size is normal. 16. Normal inferior vena cava with normal inspiratory collapse consistent with estimated right atrial pressure of 5 mmHg. 17. There is no pericardial effusion. TELETYPESETTER: Raya Mejía RDCS
--- NOTE | 2019-11-14 14:54 | P.HPIM ---
History of Present Illness H&P Date: 11/14/19 HISTORY AND PHYSICAL AND DISCHARGE SUMMARY: This is a 74-year-old female patient of with a previous medical history significant for hypertension and hypertensive cardiovascular disease, hyperlipidemia, diabetes mellitus type 2. Patient's last hospita lization was for sepsis and an ascending cholangitis in December 2017. Patient developed intermittent shortness of breath along with lightheadedness and flushing feeling fatigue and weakness. Patient presented to [facility] and patient found to be afebrile, heart rate 87, respiratory rate 26, blood pressure 200/93 pulse ox 100% on room air. CBC was unremarkable. Chloride 109, CO2 20, BUN 11 creatinine 0.65. Blood sugar 227. Calcium 10.5. Liver function tests within normal limits. Troponin negative. CTA of the chest reveals due to artifact there is limitation with regard to right main pulmonary artery and upper lobe proximal branches. Could not exclude small pulmonary embolism. Remaining portion normal. No focal consolidation, pleural effusion or pneumothorax. Minimal bibasilar subsegmental atelectasis. Nonspecific right hilar adenopathy. Chest x-ray showed no acute cardio pulmonary process. Patient was placed on the cardiac stepdown unit in consult with Dr. Farris was obtained and he recommends short anticoagulation for 3 months if Doppler and echo come back negative. Bilateral lower extremity Dopplers were negative for DVT. Bilateral small Rogers cyst present. Patient is currently on heparin drip. Blood pressure this morning is 148/74 Echocardiogram reveals EF of 50-55% with borderline concentric left ventricular hypertrophy, mild mitral regurgitation, mild tricuspid regurgitation. Lower extremity Doppler was negative for DVT bilaterally. A patient was started on Xarelto with plan for a three-month course and was cleared for discharge by Dr. Farris. Patient was discharged home in stable condition. Review of Systems Constitutional: Reports fatigue, Denies chills, Denies fever, Denies poor appetite, Denies weakness Ears, nose, mouth and throat: Denies headache, Denies nasal congestion, Denies nasal discharge, Denies sore throat Cardiovascular: Reports chest pain, Reports lightheadedness, Denies decreased exercise tolerance, Denies dyspnea on exertion, Denies edema, Denies shortness of breath, Denies syncope Respiratory: Denies cough, Denies cough with sputum, Denies dyspnea, Denies excessive sputum, Denies hemoptysis, Denies home oxygen, Denies respiratory infections, Denies wheezing Gastrointestinal: Denies abdominal pain, Denies diarrhea, Denies loss of appetite, Denies nausea, Denies vomiting Genitourinary: Denies dysuria, Denies hematuria, Denies urgency, Denies urinary frequency Musculoskeletal: Denies frequent falls, Denies gait dysfunction, Denies muscle weakness, Denies myalgias Integumentary: Denies pruritus, Denies rash, Denies wounds Neurological: Denies change in mentation, Denies change in speech, Denies confusion, Denies gait dysfunction, Denies numbness, Denies weakness Psychiatric: Denies anxiety, Denies depression Endocrine: Denies fatigue, Denies weight change Past Medical History Past Medical History: Diabetes Mellitus, Osteoarthritis (OA) Additional Past Medical History / Comment(s): NIDDM type II, arthritis bilateral knees. IBS History of Any Multi-Drug Resistant Organisms: None Reported Past Surgical History: Cholecystectomy Additional Past Surgical History / Comment(s): Bilateral cataract removals with lens implants. Past Anesthesia/Blood Transfusion Reactions: No Reported Reaction Additional Past Anesthesia/Blood Transfusion Reaction / Comment(s): No transfusion history Past Psychological History: No Psychological Hx Reported Smoking Status: Never smoker Past Alcohol Use History: None Reported Additional Past Alcohol Use History / Comment(s): She resides alone. She is sindependent. Past Drug Use History: None Reported - Past Family History Father Family Medical History: Vascular Disorder Additional Family Medical History / Comment(s): Father from a ruptured cerebral aneurysm in his 80s. Mother Family Medical History: CVA/TIA Additional Family Medical History / Comment(s): Mother is 94 yrs old with history of CVA. Brother(s) Family Medical History: No Reported History Additional Family Medical History / Comment(s): Patient has one brother with no major medical issues. Sister(s) Family Medical History: No Reported History Additional Family Medical History / Comment(s): Patient has two sisters one of them with arrythmia. Daughter(s) Family Medical History: Diabetes Mellitus Additional Family Medical History / Comment(s): Patient has 2 daughters one of them with DM2. Son(s) History Unknown: Yes Family Medical History: No Reported History Additional Family Medical History / Comment(s): Patient has one son no major health issues. Medications and Allergies Home Medications Medication Instructions Recorded Confirmed Type Lisinopril [Zestril] 20 mg PO DAILY #30 tab 12/01/17 11/13/19 Rx Rivaroxaban [Xarelto Starter Pack] 0 mg PO DIRECTED 30 Days #1 pack 11/13/19 Rx glipiZIDE/METFORMIN HCL 1 tab PO BID 11/13/19 11/13/19 History [glipiZIDE/METFORMIN HCL 5-500 mg] Allergies Allergy/AdvReac Type Severity Reaction Status Date / Time No Known Allergies Allergy Verified 11/13/19 11:15 Physical Exam Vitals: Vital Signs Temp Pulse Pulse Resp BP BP Pulse Ox 11/14/19 08:00 97.4 F L 81 18 148/74 100 11/14/19 03:19 98.2 F 84 16 163/74 98 11/13/19 23:24 97.7 F 111 H 16 166/89 97 11/13/19 19:30 18 11/13/19 19:25 97.3 F L 74 18 152/79 98 11/13/19 17:51 79 18 11/13/19 17:00 97.5 F L 79 18 175/95 100 11/13/19 16:59 97.5 F L 79 18 175/95 100 11/13/19 16:41 77 18 155/84 100 11/13/19 12:59 68 18 167/89 99 11/13/19 11:36 79 18 166/81 98 11/13/19 09:48 97.3 F L 87 26 H 200/93 100 Intake and Output 11/13/19 11/14/19 11/14/19 22:59 06:59 14:59 Intake Total 397.336 360 Balance 397.336 360 Intake: Intake, IV Titration 157.336 Amount Heparin Sod,Pork in 0.45% 82.336 NaCl 25,000 unit In 0.45 % NaCl 1 250ml.bag @ 18 UNITS/KG/HR 14.533 mls/hr IV .[id number] [facility] Rx#: [id number] Sodium Chloride 0.9% 1, 75 000 ml @ 75 mls/hr IV . [id number] [facility] Rx#:[id number] Oral 240 360 Other: Voiding Method Toilet Toilet Weight 80.739 kg 79.2 kg General appearance: average body habitus, no acute distress - EENT Eyes: anicteric sclerae, EOMI, PERRLA, no ptosis, no scleral icterus, normal appearance ENT: hearing grossly normal, NA/AT, normal oropharynx, no thrush Ears: bilateral: normal - Neck Neck: no lymphadenopathy, normal ROM, no rigidity, no stridor, no thyromegaly Carotids: bilateral: upstroke normal Thyroid: bilateral: normal size - Respiratory Respiratory: bilateral: diminished, negative: dullness, rales, rhonchi, wheezi ng, prolonged expiration, prolonged inspiration - Cardiovascular Rhythm: regular Heart sounds: normal: S1, S2 Abnormal Heart Sounds: systolic murmur, no S3 Gallop, no S4 Gallop - Gastrointestinal General gastrointestinal: normal bowel sounds, soft, no splenomegaly, no ten derness, no umbilical hernia, no ventral hernia - Integumentary Integumentary: normal, normal turgor - Neurologic Neurologic: CNII-XII intact - Musculoskeletal Musculoskeletal: gait normal, strength equal bilaterally - Psychiatric Psychiatric: A&O x's 3, appropriate affect, intact judgment & insight Results CBC & Chem 7: 11/14/19 05:17 11/13/19 10:30 Labs: Abnormal Lab Results - Last 24 Hours (Table) 11/13/19 11/13/19 11/13/19 Range/Units 10:30 10:30 10:30 Hct 46.5 H (34.0-46.0) % APTT (22.0-30.0) sec D-Dimer 1.10 H (<0.60) mg/L FEU Chloride 109 H (98-107) mmol/L Carbon Dioxide 20 L (22-30) mmol/L Glucose 227 H (74-99) mg/dL POC Glucose (mg/dL) (75-99) mg/dL Calcium 10.5 H (8.4-10.2) mg/dL Magnesium 1.4 L (1.6-2.3) mg/dL Total Protein 8.3 H (6.3-8.2) g/dL 11/13/19 11/13/19 11/13/19 Range/Units 17:04 20:23 20:32 Hct (34.0-46.0) % APTT >200.0 H* (22.0-30.0) sec D-Dimer (<0.60) mg/L FEU Chloride (98-107) mmol/L Carbon Dioxide (22-30) mmol/L Glucose (74-99) mg/dL POC Glucose (mg/dL) 111 H 133 H (75-99) mg/dL Calcium (8.4-10.2) mg/dL Magnesium (1.6-2.3) mg/dL Total Protein (6.3-8.2) g/dL 11/14/19 11/14/19 Range/Units 05:17 06:05 Hct (34.0-46.0) % APTT 73.4 H (22.0-30.0) sec D-Dimer (<0.60) mg/L FEU Chloride (98-107) mmol/L Carbon Dioxide (22-30) mmol/L Glucose (74-99) mg/dL POC Glucose (mg/dL) 144 H (75-99) mg/dL Calcium (8.4-10.2) mg/dL Magnesium (1.6-2.3) mg/dL Total Protein (6.3-8.2) g/dL Thrombosis Risk Factor Assmnt - Choose All That Apply Other Risk Factors: Yes Each Risk Factor Represents 2 Points: Age 61-74 years Other congenital or acquired thrombophilia - If yes, enter type in comment: No Thrombosis Risk Factor Assessment Total Risk Factor Score: 2 Thrombosis Risk Factor Assessment Level: Low Risk Assessment and Plan Plan: 1. Possible pulmonary embolism. Not completely ruled out Consult with Dr. Brenton hill. Patient is currently on heparin drip. 2. Diabetes Mellitus type 2. Continue glipizide/metformin and SSI. 3. Hypertension and hypertensive cardiovascular disease. Continue Lisinopril 20 mg orally daily. 4. Hyperlipidemia. Not currently on statin 5. History of generalized anxiety disorder. Xanax as needed. 6. DVT prophylaxis. On heparin. 7. GI Prophylaxis. Pepcid. Patient places in observation status. Discharge plan: home Impression and plan of care have been directed as dictated by the signing physician. Alka Gonsalez nurse practitioner acting as scribe for signing physician.
== END 2019-11-14 13:03 | disposition home or self-care (01) ==
LOC: EC 09:45 → 3SCARD 15:54
PROVIDERS: ADMIT Internal Medicine Geriatric Medicine; ATTEND Internal Medicine Geriatric Medicine
DX: R07.89 Other chest pain (principal); R06.02 Shortness of breath; R42 Dizziness and giddiness; R53.83 Other fatigue; R59.9 Enlarged lymph nodes, unspecified; E11.9 Type 2 diabetes mellitus without complications; I11.0 Hypertensive heart disease with heart failure; M17.0 Bilateral primary osteoarthritis of knee; I08.1 Rheumatic disorders of both mitral and tricuspid valves; Z90.49 Acquired absence of other specified parts of digestive tract; Z98.42 Cataract extraction status, left eye; Z98.41 Cataract extraction status, right eye; Z96.1 Presence of intraocular lens; E78.5 Hyperlipidemia, unspecified; F41.1 Generalized anxiety disorder; K58.9 Irritable bowel syndrome, unspecified; M71.22 Synovial cyst of popliteal space [Baker], left knee; M71.21 Synovial cyst of popliteal space [Baker], right knee; Z79.84 Long term (current) use of oral hypoglycemic drugs; Z79.899 Other long term (current) drug therapy; Z83.3 Family history of diabetes mellitus; Z82.3 Family history of stroke; Z82.49 Family history of ischemic heart disease and other diseases of the circulatory system
CPT/HCPCS: 96366 ×2; 96376; 96365; 99285; 36415; 93005; 93306; 85379; 80053; 83735; 84484; 85025 ×2; 85610; 85730 ×2; 71046; 93970; 71275; G0378 ×2; J1644 ×2; J3475; Q9967

== ENCOUNTER 2019-11-14 17:35 | Emergency (ER) | payer MEDICARE ==
[2019-11-14 17:45] VITALS: TEMP 97.7
[2019-11-14] MEDS ORDERED: ASPIRIN 81 MG PO STA (18:39)
[2019-11-14] MEDS ORDERED: NITROGLYCERIN OINT 1 INCH/GM PACKET TOPICAL STA (18:39)
--- NOTE | 2019-11-14 18:45 | ED ---
General Adult HPI - General Chief complaint: Chest Pain Stated complaint: SOB/chest pain/ Time Seen by Provider: 11/14/19 17:53 Source: patient, family, RN notes reviewed Mode of arrival: wheelchair Limitations: no limitations - History of Present Illness Initial comments: Patient is a pleasant 74-year-old female presenting to the emergency Department with chest discomfort. Patient was at the hospital yesterday and admitted. There is a questionable diagnosis of pulmonary embolism and patient was started on blood thinners. Patient was discharged around noon today. Patient does have some chest discomfort described as pressure in the sternal region rated 4-5/10. Patient was short of breath earlier and sweaty earlier. Patient states she does have a distant history of irregular heartbeat however none since that time. - Related Data Home Medications Medication Instructions Recorded Confirmed glipiZIDE/METFORMIN HCL 1 tab PO BID 11/13/19 11/13/19 [glipiZIDE/METFORMIN HCL 5-500 mg] Previous Rx's Medication Instructions Recorded Lisinopril [Zestril] 20 mg PO DAILY #30 tab 12/01/17 Rivaroxaban [Xarelto Starter Pack] 0 mg PO DIRECTED 30 Days #1 pack 11/13/19 Allergies Allergy/AdvReac Type Severity Reaction Status Date / Time No Known Allergies Allergy Verified 11/13/19 11:15 Review of Systems ROS Statement: Those systems with pertinent positive or pertinent negative responses have been documented in the HPI. ROS Other: All systems not noted in ROS Statement are negative. Constitutional: Denies: fever Eyes: Denies: eye pain ENT: Denies: ear pain Respiratory: Reports: as per HPI, dyspnea. Denies: cough Cardiovascular: Reports: chest pain, palpitations (Patient did have minimal palpitations earlier) Endocrine: Denies: fatigue Gastrointestinal: Denies: abdominal pain Genitourinary: Denies: dysuria Musculoskeletal: Denies: back pain Skin: Denies: rash Neurological: Denies: headache Past Medical History Past Medical History: Diabetes Mellitus, Osteoarthritis (OA) Additional Past Medical History / Comment(s): NIDDM type II, arthritis bilateral knees. IBS History of Any Multi-Drug Resistant Organisms: None Reported Past Surgical History: Cholecystectomy Additional Past Surgical History / Comment(s): Bilateral cataract removals with lens implants. Past Anesthesia/Blood Transfusion Reactions: No Reported Reaction Additional Past Anesthesia/Blood Transfusion Reaction / Comment(s): No transfusion history Past Psychological History: No Psychological Hx Reported Smoking Status: Never smoker Past Alcohol Use History: None Reported Past Drug Use History: None Reported - Past Family History Father Family Medical History: Vascular Disorder Additional Family Medical History / Comment(s): Father from a ruptured cerebral aneurysm in his 80s. Mother Family Medical History: CVA/TIA Additional Family Medical History / Comment(s): Mother is 94 yrs old with history of CVA. Brother(s) Family Medical History: No Reported History Additional Family Medical History / Comment(s): Patient has one brother with no major medical issues. Sister(s) Family Medical History: No Reported History Additional Family Medical History / Comment(s): Patient has two sisters one of them with arrythmia. Daughter(s) Family Medical History: Diabetes Mellitus Additional Family Medical History / Comment(s): Patient has 2 daughters one of them with DM2. Son(s) History Unknown: Yes Family Medical History: No Reported History Additional Family Medical History / Comment(s): Patient has one son no major health issues. General Exam Limitations: no limitations General appearance: alert, in no apparent distress Head exam: Present: atraumatic Eye exam: Present: normal appearance, PERRL ENT exam: Present: normal oropharynx Neck exam: Present: normal inspection Respiratory exam: Present: normal lung sounds bilaterally Cardiovascular Exam: Present: regular rate, irregular rhythm Expanded Peripheral pulses: 2+: Radial (R), Radial (L), Posterior Tibialis (R), Posterior Tibialis (L), Dorsalis Pedis (R), Dorsalis Pedis (L) GI/Abdominal exam: Present: soft. Absent: tenderness Extremities exam: Present: normal inspection. Absent: pedal edema, calf tenderness Neurological exam: Present: alert Psychiatric exam: Present: normal affect, normal mood Skin exam: Present: normal color Course Vital Signs 11/14/19 11/14/19 11/14/19 17:39 17:44 19:25 Temperature 97.7 F Pulse Rate 78 74 Respiratory 18 20 18 Rate Blood Pressure 173/102 161/99 O2 Sat by Pulse 100 99 Oximetry 11/14/19 20:40 Temperature Pulse Rate 64 Respiratory 18 Rate Blood Pressure 154/84 O2 Sat by Pulse 98 Oximetry - Reevaluation(s) Reevaluation #1: 11/14/19 19:18 Repeat EKG shows sinus rhythm with PACs. Rate 78. QRS 68. NH 182. QT 408. QTC 465. Left axis. LVH criteria. No acute ST change. EKG Findings - EKG Comments: EKG Findings:: Sinus rhythm with some sinus arrhythmia/PACs rate 81. NH 162. QRS 66. QT 388. QTC 450. Normal axis. LVH criteria. No acute ST change. Medical Decision Making - Medical Decision Making Patient reevaluated and resting comfortably in bed. Patient and family updated on results. Case discussed in detail with Dr. Us, who will admit For Dr. Durán. She does request cardiology consult and repeat computed tomography scan. Patient and family updated on plan. - Lab Data Result diagrams: 11/14/19 18:15 11/14/19 18:15 Lab Results 11/14/19 11/14/19 11/14/19 Range/Units 18:15 18:15 18:15 WBC 7.2 (3.8-10.6) k/uL RBC 5.15 (3.80-5.40) m/uL Hgb 14.9 (11.4-16.0) gm/dL Hct 45.3 (34.0-46.0) % MCV 87.9 (80.0-100.0) fL MCH 29.0 (25.0-35.0) pg MCHC 33.0 (31.0-37.0) g/dL RDW 13.3 (11.5-15.5) % Plt Count 229 (150-450) k/uL Neutrophils % 65 % Lymphocytes % 28 % Monocytes % 5 % Eosinophils % 1 % Basophils % 1 % Neutrophils # 4.7 (1.3-7.7) k/uL Lymphocytes # 2.0 (1.0-4.8) k/uL Monocytes # 0.4 (0-1.0) k/uL Eosinophils # 0.0 (0-0.7) k/uL Basophils # 0.1 (0-0.2) k/uL Sodium 141 (137-145) mmol/L Potassium 3.8 (3.5-5.1) mmol/L Chloride 109 H (98-107) mmol/L Carbon Dioxide 19 L (22-30) mmol/L Anion Gap 13 mmol/L BUN 16 (7-17) mg/dL Creatinine 0.66 (0.52-1.04) mg/dL Est GFR (CKD-EPI)AfAm >90 (>60 ml/min/1.73 sqM) Est GFR (CKD-EPI)NonAf 87 (>60 ml/min/1.73 sqM) Glucose 138 H (74-99) mg/dL Calcium 10.2 (8.4-10.2) mg/dL Magnesium 1.6 (1.6-2.3) mg/dL Total Bilirubin 0.9 (0.2-1.3) mg/dL AST 30 (14-36) U/L ALT 19 (4-34) U/L Alkaline Phosphatase 82 (38-126) U/L Troponin I <0.012 (0.000-0.034) ng/mL NT-Pro-B Natriuret Pep pg/mL Total Protein 8.0 (6.3-8.2) g/dL Albumin 4.7 (3.5-5.0) g/dL 11/14/19 Range/Units 18:15 WBC (3.8-10.6) k/uL RBC (3.80-5.40) m/uL Hgb (11.4-16.0) gm/dL Hct (34.0-46.0) % MCV (80.0-100.0) fL MCH (25.0-35.0) pg MCHC (31.0-37.0) g/dL RDW (11.5-15.5) % Plt Count (150-450) k/uL Neutrophils % % Lymphocytes % % Monocytes % % Eosinophils % % Basophils % % Neutrophils # (1.3-7.7) k/uL Lymphocytes # (1.0-4.8) k/uL Monocytes # (0-1.0) k/uL Eosinophils # (0-0.7) k/uL Basophils # (0-0.2) k/uL Sodium (137-145) mmol/L Potassium (3.5-5.1) mmol/L Chloride (98-107) mmol/L Carbon Dioxide (22-30) mmol/L Anion Gap mmol/L BUN (7-17) mg/dL Creatinine (0.52-1.04) mg/dL Est GFR (CKD-EPI)AfAm (>60 ml/min/1.73 sqM) Est GFR (CKD-EPI)NonAf (>60 ml/min/1.73 sqM) Glucose (74-99) mg/dL Calcium (8.4-10.2) mg/dL Magnesium (1.6-2.3) mg/dL Total Bilirubin (0.2-1.3) mg/dL AST (14-36) U/L ALT (4-34) U/L Alkaline Phosphatase (38-126) U/L Troponin I (0.000-0.034) ng/mL NT-Pro-B Natriuret Pep 95 pg/mL Total Protein (6.3-8.2) g/dL Albumin (3.5-5.0) g/dL - Radiology Data Radiology results: image reviewed (Chest x-ray shows no acute process.) Disposition Clinical Impression: Chest pain Disposition: ADMITTED IP TO THIS HOSP Is patient prescribed a controlled substance at d/c from ED?: No Referrals: Dallas Durán MD [Primary Care Provider] - 1-2 days Decision Time: 21:02
[2019-11-14 19:26] VITALS: RESP 18
--- NOTE | 2019-11-14 19:50 | XR ---
EXAMINATION TYPE: XR chest 2V DATE OF EXAM: 11/14/2019 COMPARISON: November 13, 2019 HISTORY: Chest pain TECHNIQUE: FINDINGS: Heart and mediastinum are normal. Lungs are clear. Diaphragm is normal. Bony thorax appears intact IMPRESSION: Normal chest. No change.
[2019-11-14 20:09] LABS: Basophils # (A) 0.1 k/uL (0-0.2); Basophils % (A) 1 %; Eosinophils % (A) 1 %; HCT 45.3 % (34.0-46.0); HGB 14.9 gm/dL (11.4-16.0); Lymphocytes % (A) 28 %; MCV 87.9 fL (80.0-100.0); Mean Platelet Volume 7.5; Monocytes # (A) 0.4 k/uL (0-1.0); Monocytes % (A) 5 %; Neutrophils # (A) 4.7 k/uL (1.3-7.7); Neutrophils % (A) 65 %; Platelet Count 229 k/uL (150-450); RBC 5.15 m/uL (3.80-5.40); RDW 13.3 % (11.5-15.5); WBC 7.2 k/uL (3.8-10.6)
[2019-11-14 20:18] LABS: ALT 19 U/L (4-34); AST 30 U/L (14-36); African American GFR (CKD) >90 (>60 ml/min/1.73 sqM); Albumin 4.7 g/dL (3.5-5.0); Alkaline Phosphatase 82 U/L (38-126); Anion Gap 13 mmol/L; Blood Urea Nitrogen 16 mg/dL (7-17); Calcium 10.2 mg/dL (8.4-10.2); Carbon Dioxide 19 mmol/L (22-30); Chloride 109 mmol/L (98-107); Glucose 138 mg/dL (74-99); Magnesium 1.6 mg/dL (1.6-2.3); Non-African American GFR(CKD) 87 (>60 ml/min/1.73 sqM); Potassium 3.8 mmol/L (3.5-5.1); Sodium 141 mmol/L (137-145); Total Bilirubin 0.9 mg/dL (0.2-1.3)
[2019-11-14 20:41] VITALS: BP 154/84; PULSE 64
[2019-11-14] MEDS ORDERED: NITROGLYCERIN SL TABS 0.4 MG TAB SUBLINGUAL PRN (21:03)
--- NOTE | 2019-11-14 21:23 | ED ---
Medical Decision Making - Medical Decision Making Upon original discussion with Dr. Us there was consideration of discharge. When this was brought up to the family they became very upset and swearing. I did state that I would talk to Dr. Us again regarding possible admission. When I did speak with Dr. Us she was agreeable with this and agreeable to cardiology consult and recommended repeat computed tomography scan. When I went back to evaluate and updated patient and family again patient states she just wanted to go home. Patient does question if her anxiety is causing her contributing to her symptoms. Daughter is still very upset and refusing to let her stay at this point. They are notified that further testing would be done and further evaluations would be done including medicine and cardiology consults . They are aware that stress test may be ordered. Despite this they refuse to stay. - Lab Data Result diagrams: 11/14/19 18:15 11/14/19 18:15 Lab Results 11/14/19 11/14/19 11/14/19 Range/Units 18:15 18:15 18:15 WBC 7.2 (3.8-10.6) k/uL RBC 5.15 (3.80-5.40) m/uL Hgb 14.9 (11.4-16.0) gm/dL Hct 45.3 (34.0-46.0) % MCV 87.9 (80.0-100.0) fL MCH 29.0 (25.0-35.0) pg MCHC 33.0 (31.0-37.0) g/dL RDW 13.3 (11.5-15.5) % Plt Count 229 (150-450) k/uL Neutrophils % 65 % Lymphocytes % 28 % Monocytes % 5 % Eosinophils % 1 % Basophils % 1 % Neutrophils # 4.7 (1.3-7.7) k/uL Lymphocytes # 2.0 (1.0-4.8) k/uL Monocytes # 0.4 (0-1.0) k/uL Eosinophils # 0.0 (0-0.7) k/uL Basophils # 0.1 (0-0.2) k/uL Sodium 141 (137-145) mmol/L Potassium 3.8 (3.5-5.1) mmol/L Chloride 109 H (98-107) mmol/L Carbon Dioxide 19 L (22-30) mmol/L Anion Gap 13 mmol/L BUN 16 (7-17) mg/dL Creatinine 0.66 (0.52-1.04) mg/dL Est GFR (CKD-EPI)AfAm >90 (>60 ml/min/1.73 sqM) Est GFR (CKD-EPI)NonAf 87 (>60 ml/min/1.73 sqM) Glucose 138 H (74-99) mg/dL Calcium 10.2 (8.4-10.2) mg/dL Magnesium 1.6 (1.6-2.3) mg/dL Total Bilirubin 0.9 (0.2-1.3) mg/dL AST 30 (14-36) U/L ALT 19 (4-34) U/L Alkaline Phosphatase 82 (38-126) U/L Troponin I <0.012 (0.000-0.034) ng/mL NT-Pro-B Natriuret Pep pg/mL Total Protein 8.0 (6.3-8.2) g/dL Albumin 4.7 (3.5-5.0) g/dL 11/14/19 Range/Units 18:15 WBC (3.8-10.6) k/uL RBC (3.80-5.40) m/uL Hgb (11.4-16.0) gm/dL Hct (34.0-46.0) % MCV (80.0-100.0) fL MCH (25.0-35.0) pg MCHC (31.0-37.0) g/dL RDW (11.5-15.5) % Plt Count (150-450) k/uL Neutrophils % % Lymphocytes % % Monocytes % % Eosinophils % % Basophils % % Neutrophils # (1.3-7.7) k/uL Lymphocytes # (1.0-4.8) k/uL Monocytes # (0-1.0) k/uL Eosinophils # (0-0.7) k/uL Basophils # (0-0.2) k/uL Sodium (137-145) mmol/L Potassium (3.5-5.1) mmol/L Chloride (98-107) mmol/L Carbon Dioxide (22-30) mmol/L Anion Gap mmol/L BUN (7-17) mg/dL Creatinine (0.52-1.04) mg/dL Est GFR (CKD-EPI)AfAm (>60 ml/min/1.73 sqM) Est GFR (CKD-EPI)NonAf (>60 ml/min/1.73 sqM) Glucose (74-99) mg/dL Calcium (8.4-10.2) mg/dL Magnesium (1.6-2.3) mg/dL Total Bilirubin (0.2-1.3) mg/dL AST (14-36) U/L ALT (4-34) U/L Alkaline Phosphatase (38-126) U/L Troponin I (0.000-0.034) ng/mL NT-Pro-B Natriuret Pep 95 pg/mL Total Protein (6.3-8.2) g/dL Albumin (3.5-5.0) g/dL Disposition Clinical Impression: Chest pain Disposition: Left Against Medical Advice Instructions (If sedation given, give patient instructions): Chest Pain (ED) Additional Instructions: Please follow-up with your primary care physician as well as cardiology in the next day or 2 for recheck. Return for chest pain, difficulty breathing, return of symptoms, change in mind regarding admission, worsening symptoms or any other concerns. Aspirin daily until follow-up and further advised. Continue Xarelto. Is patient prescribed a controlled substance at d/c from ED?: No Referrals: Dallas Durán MD [Primary Care Provider] - 1-2 days Heather Caldera MD [STAFF PHYSICIAN] - 1-2 days
[2019-11-15] MEDS ORDERED: NITROGLYCERIN OINT 1 INCH/GM PACKET TOPICAL SCH
[2019-11-15] MEDS ORDERED: ASPIRIN 325 MG TAB PO SCH (09:00)
== END 2019-11-14 21:40 | disposition left against medical advice (07) ==
LOC: EC 17:35 → 1SOBS 21:04 → UNDOADMOB 21:04 → EC 21:40
DX: R07.9 Chest pain, unspecified (principal); R06.02 Shortness of breath; E11.9 Type 2 diabetes mellitus without complications; Z79.84 Long term (current) use of oral hypoglycemic drugs
CPT/HCPCS: 36415; 71046; 80053; 83735; 83880; 84484; 85025; 85610; 85730; 93005; 99285

== ENCOUNTER → 2020-07-21 | Outpatient (CLI) | payer MEDICARE ==
[2020-07-21 10:39] LABS: Basophils # (A) 0.1 k/uL (0-0.2); Basophils % (A) 1 %; Eosinophils % (A) 0 %; HGB 15.2 gm/dL (11.4-16.0); Lymphocytes % (A) 26 %; MCHC 32.4 g/dL (31.0-37.0); MCV 89.3 fL (80.0-100.0); Mean Platelet Volume 7.3; Monocytes # (A) 0.3 k/uL (0-1.0); Monocytes % (A) 3 %; Neutrophils # (A) 5.4 k/uL (1.3-7.7); Neutrophils % (A) 69 %; Platelet Count 199 k/uL (150-450); RBC 5.26 m/uL (3.80-5.40); RDW 13.3 % (11.5-15.5); WBC 7.9 k/uL (3.8-10.6)
[2020-07-21 17:38] LABS: Anion Gap 12.4 mmol/L (4.00-12.00); Carbon Dioxide 21.6 mmol/L (21.6-31.8); Potassium 4.1 mmol/L (3.5-5.5)
[2020-07-22 01:12] LABS: INR 0.98 (0.90-1.11); Prothrombin Time 10.5 sec (9.9-11.9)
== END | disposition home or self-care (01) ==
LOC: LABWHC1 09:41
PROVIDERS: ATTEND Orthopaedic Surgery
DX: Z01.818 Encounter for other preprocedural examination (principal); M17.12 Unilateral primary osteoarthritis, left knee
CPT/HCPCS: 36415; 80051; 85025; 85610; 87070

== ENCOUNTER 2020-08-09 10:53 | Day surgery (SDC) | payer MEDICARE ==
[2020-08-03 15:36] VITALS: BMI 27.7
--- NOTE | 2020-08-08 12:57 | HP ---
HISTORY AND PHYSICAL REASON FOR ADMISSION: Surgery scheduled 08/09/2020 HISTORY OF PRESENT ILLNESS: Alejandrina Pena is a 74-year-old patient seen with symptomatic left knee osteoarthritis. We discussed options for treatment. She elected to proceed with left total knee arthroplasty. Consent was obtained. Medical clearance was provided by Dr. Durán. PAST MEDICAL HISTORY: Hypertension, wqg-okraikz-uaesevdud diabetes. PAST SURGICAL HISTORY: Cholecystectomy. DAILY MEDICATIONS: Aspirin, lisinopril, glipizide. ALLERGIES: None. SOCIAL HISTORY: She denies current tobacco use. PHYSICAL EXAMINATION: Evaluation of the left knee: Range of motion is -7 to 75. Mild effusion. Tenderness medial joint line. Crepitus along the medial and patellofemoral compartments with range of motion. She has a genu varum deformity. Ligaments are otherwise stable. Hip rotation is without pain. Distal neurovascular exam is intact. RADIOGRAPHS: Of left knee reveal severe osteoarthritic changes. IMPRESSION: 1. Left knee osteoarthritis. 2. Hypertension. 3. Kjn-camdunk-aeennlixh diabetes. PLAN: Left total knee arthroplasty. Surgery is scheduled for 08/09/2020. MMODL / IJN: [id number] /
[~2020-08-09 10:53] MED LIST: ACETAMINOPHEN TAB 500 MG TAB PO ONE; DEXAMETHASONE SOD PHOSPHATE 10 MG/ML 1 ML VIAL IV ONE; HYDROmorphone 0.5 MG/0.5 ML SYRINGE IVP PRN; LIDOCAINE 1% (10MG/ML) FOR IV START INTRADERMA PRN; MELOXICAM 7.5 MG TAB PO ONE; MIDAZOLAM 2 MG/2 ML VIAL IV PRN; ONDANSETRON 4 MG/2 ML VIAL IVP ONE; TRANEXAMIC ACID 1,000 MG in SODIUM CHLORIDE 0.9% 100 ML IVPB ONE
[2020-08-09] MEDS: LACTATED RINGERS 1,000 ML IV SCH ×2 (11:31→21:53)
[2020-08-09 11:48] LABS: Glucose,Whole Blood 152 mg/dL (75-99)
[2020-08-09] MEDS ORDERED: ROPIVACAINE 0.2%-NS ON-Q PUMP 1,090 MG, EMPTY PAIN BALL 1 EACH MISCELLANE PRN (12:31)
[2020-08-09] MEDS ORDERED: fentaNYL (PF) 50 MCG/ML 2 ML AMP ONE (12:33)
[2020-08-09] MEDS ORDERED: SODIUM CHLORIDE 0.9% 100 ML BAG ONE (12:33)
[2020-08-09] MEDS ORDERED: MIDAZOLAM 2 MG/2 ML VIAL ONE (12:33)
[2020-08-09] MEDS ORDERED: PROPOFOL 10 MG/ML 20 ML VIAL IV ONE (12:33)
[2020-08-09] MEDS ORDERED: TRANEXAMIC ACID 1,000 MG/10 ML VIAL ONE (12:33)
[2020-08-09] MEDS: ROPIVACAINE 246.25 MG, EPINEPHrine 0.5 MG, KETOROLAC 30 MG, cloNIDine HCL/PF 80 MCG, WA... MISCELLANE ONE ×10 (13:04→13:51)
--- NOTE | 2020-08-09 14:12 | P.OP ---
Date of Procedure: 08/09/20 Preoperative Diagnosis: Left knee osteoarthritis Postoperative Diagnosis: Left knee osteoarthritis Procedure(s) Performed: Left total knee arthroplasty Implants: 1. Microport evolution size 5 left cemented femur 2. Microport evolution size 6 left cemented tibial baseplate 3. Microport evolution size 6 left CS 12 mm polyethylene tibial insert 4. Microport advance 35 mm all polyethylene cemented patella Anesthesia: regional (Adductor canal catheter), local, spinal Surgeon: Randolph Read Arch Support Maker #1: Sundeep Wood Estimated Blood Loss (ml): 35 Pathology: other (Bone) Condition: stable Disposition: PACU Indications for Procedure: 74-year-old patient seen with symptomatic left knee osteoarthritis. After having treatment options discussed, she elected to proceed with total knee arthroplasty. Operative Findings: See description of procedure Description of Procedure: Patient was taken to the operative suite after having an adductor canal catheter placed by the department of anesthesia. Patient underwent a spinal anesthetic by the department of anesthesia. Patient was given preoperative IV intake antibiotics and TXA. A well-padded tourniquet was placed about the left lower extremity. The lower extremity was then prepped and draped in the normal sterile orthopedic fashion. The extremity was elevated, a tourniquet was insufflated to 300. A standard anterior incision was made sharply through skin. Dissection was taken down through the subcutaneous soft tissues down to the extensor mechanism. A medial arthrotomy was performed, patella was everted and knee was flexed. There was advanced osteoarthritis noted. I introduced my distal intramedullary femoral drill. I then introduced the distal femoral cutting jig. Gilmer CARUSO secured the cutting jig with 2 pins. I held retractors in position while Gilmer CARUSO performed the distal femoral resection through the guide area we now removed her distal femoral cutting guide. We now placed our 4-in-1 femoral cutting block and positioned and it was secured with 2 pins by Gilmer CARUSO while I held the block in position. The distal femoral finishing was now completed. A proximal tibial cutting guide was positioned. I held the guide in the appropriate position with both hands well Gilmer CARUSO inserted stabilizing pins into the guide. Proximal tibial cut was made. We now placed a trial femoral component into position, along with an appropriate size tibial tray and insert. We now took the knee through range of motion and had full extension good flexion and good overall soft tissue balance noted. The patella was everted and stabilized with 2 towel clips held by Gilmer CARUSO while I performed a flush with patellar quad tendon utilizing a fresh sawblade. We templated the patella, appropriate drill holes were made. An appropriate trial patella was positioned, knee was taken through full range of motion with the patella tracking very nicely. The trial patella was removed. Drill holes were made through the femoral component. All trial components were removed after marking off the appropriate rotation of the tibia. Retractors were now positioned along the proximal tibia. An appropriate keel punch was made with the appropriate size tibial guide by myself on Gilmer CARUSO assisted by holding retractors. At this point appropriate size implants were chosen and opened. The joint was irrigated copiously with pulse lavage mechanical irrigation. The posterior capsule was infiltrated with local analgesic. The wound was irrigated with pulse lavage mechanical irrigation. We mixed antibiotic methylmethacrylate. We placed the knee into flexion. We placed multiple retractors assisted by Gilmer CARUSO to expose the proximal tibia. Once the methyl methacrylate was ready, the tibial component was cemented into place removing any excess methylmethacrylate form by both myself and Gilmer CARUSO. The femoral component was cemented into place removing the removing any excess methylmethacrylate performed by both myself and Gilmer CARUSO. We then inserted the appropriate size polyethylene tibial insert. We made sure that it was locked into position. We took the knee into full extension, and then back in a flexion making sure we had removed any excess methylmethacrylate. The patellar component was then cemented down and secured with clamp. Excess methylmethacrylate removed. We kept the knee in full extension, patellar clamp in position until methylmethacrylate had hardened. Once it had hardened the patellar clamp was removed. The knee was taken through full range of motion. The patella tracked nicely. There was good soft tissue balancing. The tourniquet was now released. Additional hemostasis was achieved via electrocautery. A second gram of TXA was given. The wound again was irrigated with pulse lavage mechanical irrigation. The superficial soft tissues were infiltrated local analgesic. The extensor mechanism was repaired with Vicryl. We checked the repair with range of motion and it was stable. The subcutaneous soft tissues were repaired with Vicryl in layers. The skin was approximated with pernio/Dermabond. Sterile dressings were applied followed by loose web roll and José bandage. The patient was transferred to a bed, and taken to recovery in stable and satisfactory condition. Gilmer CARUSO assisted with this complex procedure.
[2020-08-09] MEDS ORDERED: ONDANSETRON 4 MG/2 ML VIAL IVP PRN (14:13)
[2020-08-09] MEDS ORDERED: NALOXONE 0.4 MG/ML 1 ML VIAL IV PRN (14:13)
[2020-08-09] MEDS ORDERED: HYDROcodone/APAP 5-325MG 1 EACH TAB PO PRN ×2 (14:13)
[2020-08-09] MEDS ORDERED: HYDROmorphone 0.5 MG/0.5 ML SYRINGE IVP PRN ×3 (14:13)
--- NOTE | 2020-08-09 14:53 | P.ANPRN ---
Procedure Note - Anesthesia - Nerve Block Performed Left Adductor Canal Infusion Time Out Performed: Yes Date of Procedure: 08/09/20 Procedure Start Time: 11:49 Procedure Stop Time: 12:00 Location of Patient: PreOp Indication: Acute Post-Operative Pain, Requested by Surgeon Sedation Type: Sedate with meaningful contact maintained Preparation: Sterile Prep, Sterile Dressing Position: Supine Catheter: Indwelling Needle Types: Pajunk Needle Gauge: 21 Ultrasound used to visualize needle placement: Yes Ultrasound used to observe medication spread: Yes Blood Aspirated: No Pain Paresthesia on Injection Noted: No Resistance on Injection: Normal Image Stored and Saved: Yes Events: Uneventful and Well Tolerated (ropi .5% 20cc)
--- NOTE | 2020-08-09 15:15 | XR ---
EXAMINATION TYPE: XR knee limited LT DATE OF EXAM: 08/09/2020 COMPARISON: NONE TECHNIQUE: Two views submitted HISTORY: Post op FINDINGS: There is a prosthetic knee in near anatomic alignment. There is soft tissue edema and emphysema. IMPRESSION: 1. Postoperative change. Appears in near-anatomic alignment
[2020-08-09 15:26] LABS: Glucose,Whole Blood 195 mg/dL (75-99)
[2020-08-09] MEDS: SODIUM CHLORIDE 0.9% 1,000 ML IV SCH (16:08)
[2020-08-09 17:36] LABS: Glucose,Whole Blood 336 mg/dL (75-99)
[2020-08-09] MEDS: INSULIN ASPART (NovoLOG) 100 UNIT/ML VIAL SQ SCH ×2 (17:40→20:58)
[2020-08-09 19:53] VITALS: TEMP 97.8
[2020-08-09 20:52] LABS: Glucose,Whole Blood 366 mg/dL (75-99)
[2020-08-09] MEDS ORDERED: SENNOSIDES-DOCUSATE SODIUM 1 EACH TAB PO SCH (21:00)
[2020-08-09] MEDS: metFORMIN 500 MG TAB PO SCH (21:10)
[2020-08-09] MEDS: glipiZIDE 5 MG TAB PO SCH (21:10)
--- NOTE | 2020-08-09 22:21 | P.CONS ---
History of Present Illness - Reason for Consult Consult date: 08/09/20 Medical management Requesting physician: Randolph Read - Chief Complaint Status post left total knee arthroplasty, type 2 diabetes, hypertension, hy - History of Present Illness 74-year-old female one of my office patient with multiple medical problem known to have history of hypertension, type 2 diabetes, chronic pain syndrome, and hyperlipidemia who had suffered from severe arthritis of the left knee for the last 2 years with failure to conservative management after injection physical therapy and colloid injection with no improvement patient was scheduled for elective total knee arthroplasty also patient is having significant problem discomfort in the right side require surgery eventually next few months. Patient ended up doing well after surgery was admitted to the floor today pain is well controlled and patient is hemodynamically stable. Review of Systems CONSTITUTIONAL: Well-developed no acute respiratory distress. EYES: No icterus sclerae, no conjunctivitis. EARS, NOSE, MOUTH, THROAT, and FACE: No sore throat, lymphadenopathy, carotid bruits or deformity. RESPIRATORY: No SOB cough or wheezes. CARDIOVASCULAR: No CP, Palpitation, PND, Orthopnea, or angina. GASTROINTESTINAL: No Abd pain, Nausea or vomiting, no Diarrhea or constipation, No GI Bleed, no distention or masses. GENITOURINARY: Negative for Hematuria or UTI, no kidney stones. INTEGUMENT/BREAST: Negative for any muscular injury with mild osteoarthritis.. HEMATOLOGIC/LYMPHATIC: Negative for bleed or purpura. MUSCULOSKELTAL: Negative for Myalgia or arthralgia. Mild pain and discomfort left knee area. NEURLOGICAL: No LOC, Sz or syncope, blurred vision dizziness or abnormality.. BEHAVIORAL/PSYCH: Negative. ENDOCRINE: Negative. Past Medical History Past Medical History: Diabetes Mellitus, Hypertension, Osteoarthritis (OA) Additional Past Medical History / Comment(s): NIDDM type II, arthritis bilateral knees. IBS History of Any Multi-Drug Resistant Organisms: None Reported Past Surgical History: Cholecystectomy Additional Past Surgical History / Comment(s): Bilateral cataract removals with lens implants. Past Anesthesia/Blood Transfusion Reactions: No Reported Reaction Additional Past Anesthesia/Blood Transfusion Reaction / Comm: No transfusion history Past Psychological History: Anxiety Additional Psychological History / Comment(s): Pt states her spouse a few months ago and she at times feels alittle depressed but a reasonable amount. She now resides alone. She is sindependent. Smoking Status: Never smoker Past Alcohol Use History: None Reported Additional Past Alcohol Use History / Comment(s): She resides alone. She is sindependent. Past Drug Use History: None Reported - Past Family History Father Family Medical History: Vascular Disorder Additional Family Medical History / Comment(s): Father from a ruptured cerebral aneurysm in his 80s. Mother Family Medical History: CVA/TIA Additional Family Medical History / Comment(s): Mother is 94 yrs old with history of CVA. at age 96 Brother(s) Family Medical History: No Reported History Additional Family Medical History / Comment(s): Patient has one brother with no major medical issues. Sister(s) Family Medical History: No Reported History Additional Family Medical History / Comment(s): Patient has two sisters one of them with arrythmia. Daughter(s) Family Medical History: Diabetes Mellitus Additional Family Medical History / Comment(s): Patient has 2 daughters one of them with DM2. Son(s) History Unknown: Yes Family Medical History: No Reported History Additional Family Medical History / Comment(s): Patient has one son no major health issues. Medications and Allergies Home Medications Medication Instructions Recorded Confirmed Type glipiZIDE/METFORMIN HCL 1 tab PO BID 11/13/19 08/09/20 History [glipiZIDE/METFORMIN HCL 5-500 mg] HYDROcodone/APAP 5-325MG [[place] 1 tab PO Q6HR PRN 08/03/20 08/09/20 History 5-325] lisinopriL [Zestril] 20 mg PO QAM 08/03/20 08/09/20 History Allergies Allergy/AdvReac Type Severity Reaction Status Date / Time No Known Allergies Allergy Verified 08/09/20 11:14 Physical Exam Vitals: Vital Signs Temp Pulse Resp BP Pulse Ox 08/09/20 17:00 83 137/73 97 08/09/20 16:45 82 144/71 98 08/09/20 16:30 80 128/65 93 L 08/09/20 16:15 76 149/74 97 08/09/20 16:00 97.6 F 66 148/74 99 08/09/20 15:45 74 16 125/62 98 08/09/20 15:30 76 16 126/63 98 08/09/20 15:15 66 16 133/63 98 08/09/20 15:00 66 16 132/64 96 08/09/20 14:45 65 16 131/62 97 08/09/20 14:32 98.7 F 78 16 129/60 97 08/09/20 11:20 98.7 F 68 17 145/75 97 Intake and Output 08/09/20 08/09/20 08/09/20 06:59 14:59 22:59 Intake Total 650 Output Total 35 475 Balance 615 -475 Intake: IV 650 Output: Urine 475 Estimated Blood Loss 35 Other: Weight 79.8 kg 79.8 kg General Appearance: Alert, cooperative, no distress, appears stated age. Neck HEENT: Supple, no lymphadenopathy, no thyroid enlargement, no carotid bruits. Lungs: Clear to auscultation without crackles or wheezes no rhonchi, no deformity. Chest Wall: Chest wall normal expansion with deep inspiration no tenderness and no deformity was found on exam, no costochondral pain or discomfort. Heart: Regular rate and rhythm, S1, S2 normal, no murmur, rub or gallop. Back: Symmetric, no curvature, ROM normal, no CVA tenderness. Abdomen: Soft, non-tender, bowel sounds active all four quadrants, no masses, no organomegaly. Extremities: Extremities normal, atraumatic, no cyanosis or edema. Left knee incision looks fine with no hematoma or bleed no induration or redness. No sign of infection Pulses: 2+ and symmetric. Skin: Skin color, texture, tugor normal, no rashes or lesions. Neurologic: Alert oriented x3 cranial nerves II through XII intact, no motor deficit, no abnormal balance or gait. Results Labs: Abnormal Lab Results - Last 24 Hours (Table) 08/09/20 08/09/20 08/09/20 Range/Units 11:29 15:24 17:34 POC Glucose (mg/dL) 152 H 195 H 336 H (75-99) mg/dL Assessment and Plan Assessment: 1 left total knee arthroplasty: Stable post surgery doing very well resume home meds, continue to watch patient hemodynamic status, continue GI, DVT pulmonary prophylaxis. 2 hypertension: Remain on Zestril 20 mg a day. 3 type 2 diabetes: Has been on glipizide and metformin 5/500 mg twice a day, Accu-Chek with sliding scales coverage will be done continue diet control. 4 hyperlipidemia: Off statin currently. 5 chronic pain syndrome: Has been on hydrocodone 5/325 mg every 6 hours as needed. 6 GI prophylaxis: Patient will be on Pepcid 20 mg daily. 7 DVT prophylaxis: Patient will be aspirin 325 mg twice a day. CODE STATUS: Full code. Dr. Read thank you much for the consult I can be any further help to please let me know.
[2020-08-10 01:30] VITALS: RESP 16
[2020-08-10 06:35] LABS: Basophils % (A) 0 %; Eosinophils % (A) 0 %; HCT 38.8 % (34.0-46.0); HGB 12.6 gm/dL (11.4-16.0); Lymphocytes # (A) 1.4 k/uL (1.0-4.8); Lymphocytes % (A) 9 %; MCH 29.8 pg (25.0-35.0); MCHC 32.5 g/dL (31.0-37.0); MCV 91.8 fL (80.0-100.0); Mean Platelet Volume 7.1; Monocytes # (A) 0.6 k/uL (0-1.0); Monocytes % (A) 4 %; Neutrophils % (A) 87 %; Platelet Count 224 k/uL (150-450); RBC 4.22 m/uL (3.80-5.40); WBC 16.1 k/uL (3.8-10.6)
--- NOTE | 2020-08-10 06:58 | P.PN ---
Progress Note - Text 08/10/20 629am 74-year-old female status post total knee replacement. Patient was seen and evaluated this morning, patient has an On-Q pump with solution running at 8 mL an hour with a VAS of 0. Patient doing very well. Plan to continue On-Q pump infusion
[2020-08-10 07:25] LABS: Glucose,Whole Blood 218 mg/dL (75-99)
[2020-08-10] MEDS: SODIUM CHLORIDE 0.9% 1,000 ML IV SCH (07:27)
[2020-08-10] MEDS: INSULIN ASPART (NovoLOG) 100 UNIT/ML VIAL SQ SCH (07:27)
[2020-08-10] MEDS: glipiZIDE 5 MG TAB PO SCH (07:33)
[2020-08-10] MEDS: metFORMIN 500 MG TAB PO SCH (07:33)
[2020-08-10 08:21] VITALS: BP 149/46; PULSE 67
[2020-08-10] MEDS ORDERED: ENOXAPARIN 30 MG/0.3 ML SYRINGE SQ SCH (09:00)
[2020-08-10] MEDS ORDERED: MELOXICAM 7.5 MG TAB PO SCH (09:00)
[2020-08-10] MEDS ORDERED: FAMOTIDINE 20 MG TAB PO SCH (09:00)
[2020-08-10] MEDS ORDERED: lisinopriL 20 MG TAB PO SCH (09:00)
--- NOTE | 2020-08-10 10:05 | P.PN ---
Subjective Progress Note Date: 08/10/20 Principal diagnosis: Status post left total knee arthroplasty Patient is examined today at bedside, she is resting comfortably. She's done very well with physical therapy. Her pain is currently controlled. She has no chest pain or shortness of breath this time. Objective - Vital Signs Vital signs: Vital Signs Temp 97.8 F 08/10/20 07:00 Pulse 67 08/10/20 07:00 Resp 16 08/10/20 01:29 BP 149/46 08/10/20 07:00 Pulse Ox 98 08/10/20 07:00 Intake & Output 08/09/20 08/10/20 08/10/20 18:59 06:59 18:59 Intake Total 650 550 Output Total 510 Balance 140 550 Weight 79.8 kg Intake: IV 650 Intake, IV Titration 550 Amount Sodium Chloride 0.9% 1, 550 000 ml @ 50 mls/hr IV . Q20H YARA Rx#:[id number] Output: Urine 475 Estimated Blood Loss 35 Other: Voiding Method Toilet # Voids 4 1 - Exam Left lower extremity: Incision is clean, dry, and intact. The foam dressing is in good condition. There is minimal soft tissue swelling and ecchymosis surrounding the medial and lateral aspects of the incision. Calf is soft, no tenderness with palpation. Plantar flexion, dorsiflexion, EHL, FHL are intact. Sensory exam to light touch throughout the extremity is intact, dorsal pedis pulses 2+. - Labs CBC & Chem 7: 08/10/20 05:18 Labs: Abnormal Lab Results - Last 24 Hours (Table) 08/09/20 08/09/20 08/09/20 Range/Units 11:29 15:24 17:34 WBC (3.8-10.6) k/uL Neutrophils # (1.3-7.7) k/uL POC Glucose (mg/dL) 152 H 195 H 336 H (75-99) mg/dL 08/09/20 08/10/20 08/10/20 Range/Units 20:51 05:18 07:23 WBC 16.1 H (3.8-10.6) k/uL Neutrophils # 14.0 H (1.3-7.7) k/uL POC Glucose (mg/dL) 366 H 218 H (75-99) mg/dL Assessment and Plan Assessment: Status post left total knee arthroplasty Plan: Pain control, patient does have [place] [facility] 5 mg/225 at home, she'll resume this GI and DVT prophylaxis, Xarelto 10 mg prescribed by her primary care doctor. She will take 2 weeks of this Wound care instructions were discussed Home physical therapy and nursing Medical recommendations Plan for discharge home today Time with Patient: Less than 30
--- NOTE | 2020-08-10 10:07 | P.DS ---
Providers Date of admission: 08/09/2020 Expected date of discharge: 08/10/20 Attending physician: Randolph Read Consults: 08/09/20 14:13 Consult Physician Routine Consulting Provider: Dallas Durán Reason/Comments: Medical management Do you want consulting provider notified?: Yes Primary care physician: Dallas Durán Hospital Course: Date of admission: 08/09/2020 Date of discharge: 08/10/2020 Admission diagnosis: Status post right total knee arthroplasty Discharge diagnosis: Same Attending physician: Dr. Read Surgical procedures: Right total knee arthroplasty Brief history: Patient is a 74-year-old female with a history of progressive primary right knee osteoarthritis. At this point patient has failed conservative treatment measures and has opted to proceed with a elective right total knee arthroplasty. Hospital course: Details of patient's surgery can be found in operative report. Patient tolerated the procedure well and was subsequently transported to orthopedic floor. Patient's orthopeidc and medical care was provided daily. Patient had daily laboratory tests performed for evaluation of overall blood counts. Patient had daily physical therapy to include strengthening range of motion as well as education with walker ambulation. Patient was treated with Lovenox for their postoperative DVT prophylaxis during their inpatient stay. Patient was noted to have a relatively uneventful postoperative course. Patient reported satisfactory pain control with oral pain medications by postoperative day 0. Patient showed satisfactory progress with physical therapy. Patient moved steadily through the program and had no difficulty meeting the goals by postoperative day 1. Given patient's otherwise satisfactory course and having met physical therapy goals, plan is to discharge patient home on postoperative day 1. Discharge condition/disposition: Patient will be discharged home in stable condition. Discharge medications: Instructions are given on resumption of patient's normal daily medications per primary care recommendation, in addition patient will be prescribed Xarelto 10 mg. Disarge instructions: 1. Wound care and infection precautions, keep incision dry and covered while showering, no loions, creams, moisturizers. No soaking, tubs, pools, hottubs. Do not scrub over the incision. 2. Weight-bear as toleated with wlker / cane until follow-up. 3. Ice and elevate when necessary. Do not exceed 20 minutes per hour with ice pack. 4. Utilize compression sleeve until seen at first follow up appointment. 5. Visiting nursing care. 6. Home physical therapy including home CPM. 7. Pin meds and anticoagulants per prescription. 8. Pain medication has potential to cause constipation. Increase oral fluid and fiber intake. Contact primary care provider if you have not had a bowel movement within 48 hours after discharge 9. No anti-inflammatory medication until discussed at first post operative visit, this including Motrin, Aleve, Mobic, Diclofenac. 10. Follow up in office at 2 weeks postop with Gilmer Wood PA-C 11. Follow up with your primary care doctor 7-10 days after discharge. 12. Contact [facility] with any questions, . Procedures: Left total knee arthroplasty Patient Condition at Discharge: Good Plan - Discharge Summary Discharge Rx Participant: No New Discharge Prescriptions: New Rivaroxaban [Xarelto] 10 mg PO DAILY #12 tab No Action glipiZIDE/METFORMIN HCL [glipiZIDE/METFORMIN HCL 5-500 mg] 1 tab PO BID lisinopriL [Zestril] 20 mg PO QAM HYDROcodone/APAP 5-325MG [[place] 5-325] 1 tab PO Q6HR PRN PRN Reason: Pain Discharge Medication List glipiZIDE/METFORMIN HCL [glipiZIDE/METFORMIN HCL 5-500 mg] 1 tab PO BID 11/13/19 [History] HYDROcodone/APAP 5-325MG [[place] 5-325] 1 tab PO Q6HR PRN 08/03/20 [History] lisinopriL [Zestril] 20 mg PO QAM 08/03/20 [History] Rivaroxaban [Xarelto] 10 mg PO DAILY #12 tab 08/10/20 [Rx] Follow up Appointment(s)/Referral(s): [facility] [NON-STAFF] - As Needed (Continuous Passive Motion knee machine) Dallas Durán MD [Primary Care Provider] - 08/17/20 3:45 pm [facility], [NON-STAFF] - As Needed Sundeep Wood PAC [PHYSICIAN DRYWALL TAPER] - 08/25/20 2:10 pm Activity/Diet/Wound Care/Special Instructions: Patient has Xarelto at home given to her by Dr. Durán from office. Xarelto 10mg daily for 30 days. Orthopedic Discharge Instructions: 1. Wound care and infection precautions, keep incision dry and covered while showering, no lotions, creams, moisturizers. No soaking, pools, hot tubs. Do not scrub over incision. Okay to remove foam dressing on 08/19/2020 2. Weight-bear as tolerated with walker / cane until follow-up. 3. Ice and elevate when necessary. Do not exceed 20 minutes per hour with ice pack. 4. Utilize compression sleeve until seen at first follow up appointment. 5. Pain meds and anticoagulants per prescription. 6. Pain medication has potential to cause constipation. Increase oral fluid and fiber intake. Contact primary care provider if you have not had a bowel movement within 48 hours after discharge. 7. No anti-inflammatory medication until discussed at first post operative visit, this including Motrin, Aleve, Mobic, Diclofenac. 8. Follow up in office at 2 weeks postop with Gilmer Wood PA-C 9. Follow up with your primary care doctor 7-10 days after discharge. 10. Contact [facility] with any questions, . Discharge Disposition: HOME WITH HOME HEALTH SERVICES
--- NOTE | 2020-08-10 10:20 | P.PN ---
Subjective Progress Note Date: 08/10/20 History of present illness 74-year-old female one of my office patient with multiple medical problem known to have history of hypertension, type 2 diabetes, chronic pain syndrome, and hyperlipidemia who had suffered from severe arthritis of the left knee for the last 2 years with failure to conservative management after injection physical therapy and colloid injection with no improvement patient was scheduled for elective total knee arthroplasty also patient is having significant problem discomfort in the right side require surgery eventually next few months. Patient ended up doing well after surgery was admitted to the floor today pain is well controlled and patient is hemodynamically stable. 08/10: Pain is well controlled. She has Q-pump in place. Patient reaching 1500mg on incentive spirometry. The patient has been afebrile, heart rate 65, blood pressure 120/69 and pulse ox 95% on room air. Blood sugars are elevated as patient is very fused NovoLog. Repeat blood work reveals [place] BC 16.1, hemoglobin 12.6, platelet count 224. Patient is cleared from medicine for discharge home today. Review of Systems CONSTITUTIONAL: Well-developed no acute respiratory distress. No fever. EYES: No icterus sclerae, no conjunctivitis. EARS, NOSE, MOUTH, THROAT, and FACE: No sore throat, lymphadenopathy, carotid bruits or deformity. RESPIRATORY: No SOB cough or wheezes. CARDIOVASCULAR: No CP, Palpitation, PND, Orthopnea, or angina. GASTROINTESTINAL: No Abd pain, Nausea or vomiting, no Diarrhea or constipation, No GI Bleed, no distention or masses. GENITOURINARY: Negative for Hematuria or UTI, no kidney stones. INTEGUMENT/BREAST: Negative for any muscular injury with mild osteoarthritis.. HEMATOLOGIC/LYMPHATIC: Negative for bleed or purpura. MUSCULOSKELTAL: Negative for Myalgia or arthralgia. Mild pain and discomfort left knee area. NEURLOGICAL: No LOC, Sz or syncope, blurred vision dizziness or abnormality.. BEHAVIORAL/PSYCH: Negative. ENDOCRINE: Negative. Physical examination General Appearance: Alert, cooperative, no distress, appears stated age. Neck HEENT: Supple, no lymphadenopathy, no thyroid enlargement, no carotid bruits. Lungs: Clear to auscultation without crackles or wheezes no rhonchi, no deformity. Chest Wall: Chest wall normal expansion with deep inspiration no tenderness and no deformity was found on exam, no costochondral pain or discomfort. Heart: Regular rate and rhythm, S1, S2 normal, no murmur, rub or gallop. Back: Symmetric, no curvature, ROM normal, no CVA tenderness. Abdomen: Soft, non-tender, bowel sounds active all four quadrants, no masses, no organomegaly. Extremities: Extremities normal, atraumatic, no cyanosis or edema. Left knee dressing in place. No sign of infection Pulses: 2+ and symmetric. Skin: Skin color, texture, tugor normal, no rashes or lesions. Neurologic: Alert oriented x3 cranial nerves II through XII intact, no motor deficit, no abnormal balance or gait. Assessment and plan 1 left total knee arthroplasty: Stable post surgery doing very well resume home meds, continue to watch patient hemodynamic status, continue GI, DVT pulmonary prophylaxis. 2 hypertension: Remain on Zestril 20 mg a day. 3 type 2 diabetes: Has been on glipizide and metformin 5/500 mg twice a day, Accu-Chek with sliding scales coverage will be done continue diet control. 4 hyperlipidemia: Off statin currently. 5 chronic pain syndrome: Has been on hydrocodone 5/325 mg every 6 hours as needed. 6 GI prophylaxis: Patient will be on Pepcid 20 mg daily. 7 DVT prophylaxis: Patient will be aspirin 325 mg twice a day. CODE STATUS: Full code. Discharge plan [facility] with [facility] Impression and plan of care have been directed as dictated by the signing physician. Alka Gonsalez nurse practitioner acting as scribe for signing physician. Objective - Vital Signs Vital signs: Vital Signs Temp 97.8 F 08/10/20 01:29 Pulse 65 08/10/20 01:29 Resp 16 08/10/20 01:29 BP 128/69 08/10/20 01:29 Pulse Ox 95 08/10/20 01:29 Intake & Output 08/09/20 08/10/20 08/10/20 18:59 06:59 18:59 Intake Total 650 550 Output Total 510 Balance 140 550 Weight 79.8 kg Intake: IV 650 Intake, IV Titration 550 Amount Sodium Chloride 0.9% 1, 550 000 ml @ 50 mls/hr IV . Q20H YARA Rx#:[id number] Output: Urine 475 Estimated Blood Loss 35 Other: Voiding Method Toilet # Voids 4 - Labs CBC & Chem 7: 08/10/20 05:18 Labs: Abnormal Lab Results - Last 24 Hours (Table) 08/09/20 08/09/20 08/09/20 Range/Units 11:29 15:24 17:34 WBC (3.8-10.6) k/uL Neutrophils # (1.3-7.7) k/uL POC Glucose (mg/dL) 152 H 195 H 336 H (75-99) mg/dL 08/09/20 08/10/20 08/10/20 Range/Units 20:51 05:18 07:23 WBC 16.1 H (3.8-10.6) k/uL Neutrophils # 14.0 H (1.3-7.7) k/uL POC Glucose (mg/dL) 366 H 218 H (75-99) mg/dL
[2020-08-10 16:05] LABS: Hemoglobin A1C 6.4 % (4.0-6.0)
== END 2020-08-10 11:58 | disposition home health service (06) ==
LOC: OR 10:53 → 4SSUR 15:02 → OR 08-10 11:58
PROVIDERS: ATTEND Orthopaedic Surgery
DX: M17.12 Unilateral primary osteoarthritis, left knee (principal); G89.4 Chronic pain syndrome; I10 Essential (primary) hypertension; E78.5 Hyperlipidemia, unspecified; E11.9 Type 2 diabetes mellitus without complications; Z90.49 Acquired absence of other specified parts of digestive tract; Z98.42 Cataract extraction status, left eye; Z98.41 Cataract extraction status, right eye; Z96.1 Presence of intraocular lens; F41.9 Anxiety disorder, unspecified; Z82.49 Family history of ischemic heart disease and other diseases of the circulatory system; Z82.3 Family history of stroke; Z83.3 Family history of diabetes mellitus; Z79.84 Long term (current) use of oral hypoglycemic drugs; Z79.82 Long term (current) use of aspirin; Z79.899 Other long term (current) drug therapy
CPT/HCPCS: 97110; 97161; 64448; 76942; 85025; 88300; 83036; 73560; 27447; C1776; C1713; J2250; J0171; J1100; J0690 ×2; J2405; J1885; J1650; J2795; J0735

== ENCOUNTER 2020-11-26 11:41 | Inpatient (IN) | payer MEDICARE ==
[2020-11-26] MEDS ORDERED: SODIUM CHLORIDE 0.9% 500 ML 500 ML IV STA (12:13)
--- NOTE | 2020-11-26 12:41 | XR ---
EXAMINATION TYPE: XR chest 2V DATE OF EXAM: 11/26/2020 COMPARISON: Chest x-ray 11/14/2019 HISTORY: Dysrhythmia, right upper back pain TECHNIQUE: Frontal and lateral views of the chest are obtained. FINDINGS: There is no focal air space opacity, pleural effusion, or pneumothorax seen. The cardiac silhouette size is within normal limits. There are overlying leads. There is thoracic spondylosis and spinal curvature. Surgical clips present right upper quadrant. The osseous structures are intact. IMPRESSION: No acute cardiopulmonary process.
--- NOTE | 2020-11-26 12:47 | ED ---
General Adult HPI - General Chief complaint: Arrhythmia/Palpitations Stated complaint: AFIB/New Time Seen by Provider: 11/26/20 12:01 Source: patient Mode of arrival: ambulatory Limitations: no limitations - History of Present Illness Initial comments: Patient is a 75-year-old female with history of diabetes, presenting to the emergency department from her physician's office for new onset A. fib. Patient is also jaundice and is complaining of intermittent back pain. She states she went to her doctor's office today because of the back pain however noticed she was jaundice and in a new onset A. fib, so they sent her to the ER. She denies any abdominal pain at this time, no nausea or vomiting, no diarrhea. She states she did not notice that her skin was yellow until she went to doctor's today. She denies chest pain, shortness of breath, palpitations. She does not take a blood thinner. She denies any recent fever or chills. He denies any dysuria. She has no further complaints at this time. Upon arrival to the ER, she is slightly tachycardia at 106, rest of vitals are normal. - Related Data Home Medications Medication Instructions Recorded Confirmed glipiZIDE/METFORMIN HCL 2 tab PO BID 11/13/19 11/26/20 [glipiZIDE/METFORMIN HCL 5-500 mg] lisinopriL [Zestril] 20 mg PO QAM 08/03/20 11/26/20 Aspirin 81 mg PO DAILY 11/26/20 11/26/20 Allergies Allergy/AdvReac Type Severity Reaction Status Date / Time No Known Allergies Allergy Verified 11/26/20 13:29 Review of Systems ROS Statement: Those systems with pertinent positive or pertinent negative responses have been documented in the HPI. ROS Other: All systems not noted in ROS Statement are negative. Past Medical History Past Medical History: Diabetes Mellitus, Osteoarthritis (OA) Additional Past Medical History / Comment(s): NIDDM type II, arthritis bilateral knees. IBS History of Any Multi-Drug Resistant Organisms: None Reported Past Surgical History: Cholecystectomy Additional Past Surgical History / Comment(s): Bilateral cataract removals with lens implants. Past Anesthesia/Blood Transfusion Reactions: No Reported Reaction Additional Past Anesthesia/Blood Transfusion Reaction / Comment(s): No transfusion history Past Psychological History: No Psychological Hx Reported Smoking Status: Never smoker Past Alcohol Use History: None Reported Past Drug Use History: None Reported - Past Family History Father Family Medical History: Vascular Disorder Additional Family Medical History / Comment(s): Father from a ruptured cerebral aneurysm in his 80s. Mother Family Medical History: CVA/TIA Additional Family Medical History / Comment(s): Mother is 94 yrs old with history of CVA. at age 96 Brother(s) Family Medical History: No Reported History Additional Family Medical History / Comment(s): Patient has one brother with no major medical issues. Sister(s) Family Medical History: No Reported History Additional Family Medical History / Comment(s): Patient has two sisters one of them with arrythmia. Daughter(s) Family Medical History: Diabetes Mellitus Additional Family Medical History / Comment(s): Patient has 2 daughters one of them with DM2. Son(s) History Unknown: Yes Family Medical History: No Reported History Additional Family Medical History / Comment(s): Patient has one son no major health issues. General Exam - General Exam Comments Initial Comments: GENERAL: Patient is well-developed and well-nourished. Patient is nontoxic and in no acute distress. She is jaundice. HEAD: Atraumatic, normocephalic. EYES: Pupils equal round and reactive to light, extraocular movements intact, bilateral sclera icteric, conjunctiva are normal. Eyelids were unremarkable. ENT: TMs normal, nares patent, oropharynx clear without exudates. Moist mucous membranes. NECK: Normal range of motion, supple without lymphadenopathy or JVD. LUNGS: Unlabored respirations. Breath sounds clear to auscultation bilaterally and equal. No wheezes rales or rhonchi. HEART: Regular rate and rhythm without murmurs, rubs or gallops. ABDOMEN: Soft, nontender, normoactive bowel sounds. No guarding, no rebound. No masses appreciated. : Deferred MUSCULOSKELETAL: Normal extremities with adequate strength and normal range of motion, no pitting or edema. No clubbing or cyanosis. NEUROLOGICAL: Patient is alert and oriented x 3. Motor and sensory are also intact. Cranial nerves II through XII grossly intact. Symmetrical smile. Normal speech, normal gait. PSYCH: Normal mood, normal affect. SKIN: Warm, Dry, normal turgor, no rashes or lesions noted. Limitations: no limitations Course Vital Signs 11/26/20 11/26/20 11/26/20 11:49 12:32 13:36 Temperature 98.4 F Pulse Rate 106 H 90 110 H Respiratory 18 17 20 Rate Blood Pressure 155/85 135/76 138/76 O2 Sat by Pulse 97 98 99 Oximetry 11/26/20 14:53 Temperature Pulse Rate 96 Respiratory 18 Rate Blood Pressure 139/72 O2 Sat by Pulse 99 Oximetry EKG Findings - EKG Comments: EKG Findings:: Sinus rhythm with premature atrial complexes, no signs of an acute process, ventricular rate 98, NE interval 160, QT 348. Medical Decision Making - Medical Decision Making Patient is a 75-year-old female here for jaundice, new onset A. fib sent in from Dr. Durán's office. Vital signs are stable upon arrival. Initial EKG does not show A. fib however when watching the monitor she does go into A. fib many times. He denies any chest pains, no shortness of breath. Patient is also very jaundice. Labs show normal white count, normal hemoglobin. Liver enzymes are elevated, bilirubin is 13.4, alk phos is 427. Troponin is normal. Patient's urine does show evidence for a UTI, culture is pending. Chest x-ray shows no acute process, ultrasound of the liver shows no new ascites, persistent mild to moderate extrahepatic biliart dialation, CBD dilated at 1.6cm. CA199, CA 125 are pending. Patient will be admitted, consulted cardiology and GI. Dr. Durán did accept the patient. Dr. Durán did want a CT of abdomen and pelvis however patient refused at this time stating that she just had one at [facility] recently. I also ordered an MRCP. Patient remained stable, she did have some fluids and 1 g of Rocephin for the UTI. Discussed in detail with Dr. Galarza. - Lab Data Result diagrams: 11/26/20 12:34 11/26/20 12:34 Lab Results 11/26/20 11/26/20 11/26/20 Range/Units 12:34 12:34 12:34 WBC 9.6 (3.8-10.6) k/uL RBC 4.53 (3.80-5.40) m/uL Hgb 12.8 (11.4-16.0) gm/dL Hct 39.9 (34.0-46.0) % MCV 88.1 (80.0-100.0) fL MCH 28.3 (25.0-35.0) pg MCHC 32.1 (31.0-37.0) g/dL RDW 15.9 H (11.5-15.5) % Plt Count 262 (150-450) k/uL MPV 7.7 Neutrophils % 81 % Lymphocytes % 13 % Monocytes % 4 % Eosinophils % 1 % Basophils % 0 % Neutrophils # 7.7 (1.3-7.7) k/uL Lymphocytes # 1.3 (1.0-4.8) k/uL Monocytes # 0.4 (0-1.0) k/uL Eosinophils # 0.1 (0-0.7) k/uL Basophils # 0.0 (0-0.2) k/uL PT 13.7 H (9.0-12.0) sec INR 1.3 H (<1.2) APTT 26.9 (22.0-30.0) sec Sodium 136 L (137-145) mmol/L Potassium 4.1 (3.5-5.1) mmol/L Chloride 102 (98-107) mmol/L Carbon Dioxide 25 (22-30) mmol/L Anion Gap 9 mmol/L BUN 13 (7-17) mg/dL Creatinine 0.67 (0.52-1.04) mg/dL Est GFR (CKD-EPI)AfAm >90 (>60 ml/min/1.73 sqM) Est GFR (CKD-EPI)NonAf 86 (>60 ml/min/1.73 sqM) Glucose 213 H (74-99) mg/dL Calcium 9.6 (8.4-10.2) mg/dL Magnesium 1.2 L (1.6-2.3) mg/dL Total Bilirubin 13.4 H (0.2-1.3) mg/dL AST 142 H (14-36) U/L ALT 111 H (4-34) U/L Alkaline Phosphatase 427 H (38-126) U/L Troponin I (0.000-0.034) ng/mL Total Protein 7.5 (6.3-8.2) g/dL Albumin 3.7 (3.5-5.0) g/dL Urine Color Urine Appearance (Clear) Urine pH (5.0-8.0) Ur Specific [place] (1.001-1.035) Urine Protein (Negative) Urine Glucose (UA) (Negative) Urine Ketones (Negative) Urine Blood (Negative) Urine Nitrite (Negative) Urine Bilirubin (Negative) Urine Urobilinogen (<2.0) mg/dL Ur Leukocyte Esterase (Negative) Urine RBC (0-5) /hpf Urine WBC (0-5) /hpf Ur Squamous Epith Cells (0-4) /hpf Urine Bacteria (None) /hpf Hyaline Casts (0-2) /lpf Urine Mucus (None) /hpf 11/26/20 11/26/20 Range/Units 12:34 13:26 WBC (3.8-10.6) k/uL RBC (3.80-5.40) m/uL Hgb (11.4-16.0) gm/dL Hct (34.0-46.0) % MCV (80.0-100.0) fL MCH (25.0-35.0) pg MCHC (31.0-37.0) g/dL RDW (11.5-15.5) % Plt Count (150-450) k/uL MPV Neutrophils % % Lymphocytes % % Monocytes % % Eosinophils % % Basophils % % Neutrophils # (1.3-7.7) k/uL Lymphocytes # (1.0-4.8) k/uL Monocytes # (0-1.0) k/uL Eosinophils # (0-0.7) k/uL Basophils # (0-0.2) k/uL PT (9.0-12.0) sec INR (<1.2) APTT (22.0-30.0) sec Sodium (137-145) mmol/L Potassium (3.5-5.1) mmol/L Chloride (98-107) mmol/L Carbon Dioxide (22-30) mmol/L Anion Gap mmol/L BUN (7-17) mg/dL Creatinine (0.52-1.04) mg/dL Est GFR (CKD-EPI)AfAm (>60 ml/min/1.73 sqM) Est GFR (CKD-EPI)NonAf (>60 ml/min/1.73 sqM) Glucose (74-99) mg/dL Calcium (8.4-10.2) mg/dL Magnesium (1.6-2.3) mg/dL Total Bilirubin (0.2-1.3) mg/dL AST (14-36) U/L ALT (4-34) U/L Alkaline Phosphatase (38-126) U/L Troponin I <0.012 (0.000-0.034) ng/mL Total Protein (6.3-8.2) g/dL Albumin (3.5-5.0) g/dL Urine Color Dark Yellow Urine Appearance Cloudy H (Clear) Urine pH 5.5 (5.0-8.0) Ur Specific [place] 1.009 (1.001-1.035) Urine Protein Trace H (Negative) Urine Glucose (UA) Negative (Negative) Urine Ketones Negative (Negative) Urine Blood Negative (Negative) Urine Nitrite Negative (Negative) Urine Bilirubin 2+ H (Negative) Urine Urobilinogen 2.0 (<2.0) mg/dL Ur Leukocyte Esterase Moderate H (Negative) Urine RBC 1 (0-5) /hpf Urine WBC 17 H (0-5) /hpf Ur Squamous Epith Cells 3 (0-4) /hpf Urine Bacteria Many H (None) /hpf Hyaline Casts 1 (0-2) /lpf Urine Mucus Occasional H (None) /hpf Disposition Clinical Impression: Atrial fibrillation, Dilated bile duct, Jaundice, Transaminitis, UTI (urinary tract infection) Disposition: ADMITTED IP TO THIS [facility] Condition: Stable Decision Date: 11/26/20 Decision Time: 14:28
[2020-11-26 13:03] LABS: Basophils % (A) 0 %; Eosinophils # (A) 0.1 k/uL (0-0.7); Eosinophils % (A) 1 %; HCT 39.9 % (34.0-46.0); HGB 12.8 gm/dL (11.4-16.0); Lymphocytes # (A) 1.3 k/uL (1.0-4.8); Lymphocytes % (A) 13 %; MCH 28.3 pg (25.0-35.0); MCHC 32.1 g/dL (31.0-37.0); MCV 88.1 fL (80.0-100.0); Mean Platelet Volume 7.7; Monocytes # (A) 0.4 k/uL (0-1.0); Monocytes % (A) 4 %; Neutrophils # (A) 7.7 k/uL (1.3-7.7); Neutrophils % (A) 81 %; Platelet Count 262 k/uL (150-450); RBC 4.53 m/uL (3.80-5.40); RDW 15.9 % (11.5-15.5); WBC 9.6 k/uL (3.8-10.6)
[2020-11-26 13:15] LABS: ALT 111 U/L (4-34); AST 142 U/L (14-36); African American GFR (CKD) >90 (>60 ml/min/1.73 sqM); Albumin 3.7 g/dL (3.5-5.0); Alkaline Phosphatase 427 U/L (38-126); Anion Gap 9 mmol/L; Blood Urea Nitrogen 13 mg/dL (7-17); Calcium 9.6 mg/dL (8.4-10.2); Carbon Dioxide 25 mmol/L (22-30); Chloride 102 mmol/L (98-107); Glucose 213 mg/dL (74-99); Magnesium 1.2 mg/dL (1.6-2.3); Non-African American GFR(CKD) 86 (>60 ml/min/1.73 sqM); Potassium 4.1 mmol/L (3.5-5.1); Sodium 136 mmol/L (137-145); Total Bilirubin 13.4 mg/dL (0.2-1.3); Total Protein 7.5 g/dL (6.3-8.2)
--- NOTE | 2020-11-26 13:19 | US ---
EXAMINATION TYPE: US liver DATE OF EXAM: 11/26/2020 COMPARISON: CT December 14, 2017 CLINICAL HISTORY: jaundice. EXAM MEASUREMENTS: Liver Length: 16.2 cm Gallbladder Wall: Surgically absent CBD: 1.6 cm Right Kidney: 10.4 x 4.1 x 5.4 cm Pancreas: visualized portions wnl Liver: Increased attenuation Gallbladder: Surgically absent CBD: grossly dilated at 1.6 cm Right Kidney: No hydronephrosis or masses seen Visualized liver is heterogeneously hyperechoic. Evaluation for focal masses suboptimal due to the he terogeneity. Mild to moderate extra hepatic biliary dilatation has similar appearance to 2018 CT. No obvious worsening biliary dilatation. Mild left-sided intrahepatic biliary dilatation on CT are less well seen on ultrasound images saved. No new ascites. IMPRESSION: Persistent heterogeneous hyperechoic appearance of liver could be on basis of diffuse fat ty infiltration and/or underlying Hepatocellular disease. No new ascites. Persistent mild/moderate ex trahepatic biliary dilatation. Correlate with ERCP results December 17, 2017 advised.
[2020-11-26 13:30] LABS: INR 1.3 (<1.2); Partial Thromboplastin Time 26.9 sec (22.0-30.0); Prothrombin Time 13.7 sec (9.0-12.0)
[2020-11-26 14:03] LABS: Appearance,Urine Cloudy (Clear); Bacteria,Urine Many /hpf; Bilirubin,Urine 2+ (Negative); Blood,Urine Negative (Negative); Color,Urine Dark Yellow; Glucose,Urine (UA) Negative (Negative); Hyaline Casts,Urine 1 /lpf (0-2); Ketones,Urine Negative (Negative); Leukocyte Esterase,Urine Moderate (Negative); Mucus,Urine Occasional /hpf; Nitrite,Urine Negative (Negative); PH, Urine 5.5 (5.0-8.0); Protein,Urine Trace (Negative); RBC,Urine 1 /hpf (0-5); Specific Gravity,Urine 1.009 (1.001-1.035); Squamous Epithelial Cell,Urine 3 /hpf (0-4); WBC,Urine 17 /hpf (0-5)
[2020-11-26] MEDS ORDERED: ONDANSETRON 4 MG/2 ML VIAL IVP PRN (14:24)
[2020-11-26] MEDS ORDERED: NALOXONE 0.4 MG/ML 1 ML VIAL IV PRN (14:24)
[2020-11-26] MEDS ORDERED: cefTRIAXone IN SWFI 1,000 MG/10 ML SYRINGE IVP STA (14:27)
[2020-11-26] MEDS: SODIUM CHLORIDE 0.9% 1,000 ML IV SCH (15:00)
[2020-11-26 17:37] LABS: Glucose,Whole Blood 95 mg/dL (75-99)
--- NOTE | 2020-11-26 20:05 | MR ---
EXAMINATION TYPE: MR MRCP DATE OF EXAM: 11/26/2020 COMPARISON: None HISTORY: Transaminitis, jaundice, abdominal pain. Multiplanar multiecho imaging of the abdomen was performed without contrast. Liver shows no focal def ect. Spleen is intact. There is no evidence of pancreatic mass. Stomach is intact. There is no evidence of pleural effusion. The pancreatic duct has normal size. There is mild dilation of the common bile duct that measures 1.4 cm. There is rounded apparent fillin g defect within the distal common bile duct at the ampulla consistent with a large common duct stone measuring approximately 1.5 cm in diameter. The intrahepatic bile ducts are mildly ectatic there is n o evidence of a discrete liver mass. There is normal flow-void in the inferior vena cava and portal v ein. The T2 coronal images show a second common duct stone that measures 7 mm adjacent to the larger distal obstructing stone. On the T2 coronal images there is a 1.6 cm area of rounded fluid signal whi ch is anterior to the common bile duct and could be a duodenal diverticulum. Kidneys have normal size. There is no hydronephrosis. There is no evidence of retroperitoneal adenopa thy. IMPRESSION: There are 2 obstructing calculi in the distal common bile duct as above. Mild dilation of the biliary tree. Normal pancreas.
[2020-11-26] MEDS: HEPARIN SODIUM,PORCINE 5,000 UNIT/ML 1 ML VIAL SQ SCH (20:23)
[2020-11-26 20:44] LABS: Glucose,Whole Blood 223 mg/dL (75-99)
--- NOTE | 2020-11-26 21:48 | P.HPIM ---
History of Present Illness H&P Date: 11/26/20 Chief Complaint: Painless jaundice, A. fib with RVR, severe weight loss, abn ormal liver func 75-year-old female one of my office patient of seen for the last 4 years who was hospitalized [facility] on on 10 13 to 10/15/2020 with complain of dyspnea tachycardia and tachypnea earlier patient had recent left total knee arthroplasty with Dr. Read at [facility] that she has done very well with surgery patient is known to have history of hypertension diabetes and IBS she had history of cholecystectomy over 25 years ago and she had one problem with the bile duct since her cholecystectomy did not require any intervention. She was hospitalized at [facility] found to have significantly abnormal liver function test with dilated common duct on abdominal ultrasound she was seen gastroenterology and felt no need for intervention at bedtime. Her symptom has improved was discharged home and done very well. Patient had an EGD as an outpatient with Dr. Brice on 10/16/2020 which showed only gastritis and esophagitis. Patient presented to the office today 11/26/2020 with complaint of tachypnea tachycardia mild dyspnea and shortness of breath and found to have painless jau ndice. Her EKG showed A. fib with RVR pulse rate still running around 100 beats per minutes with her current symptoms patient was referred to the emergency department to be admitted after workup. Ultrasound of the liver did not show any major abnormality except mild Roldan along with dilated common duct. Patient blood test showed total bilirubin in the 14. Liver function tests were abnormal UA was positive blood sugar was mildly elevated as well. Patient was scheduled for an MRCP which showed to common duct stone causing the dilated common duct with the low-grade temperature and elevated white blood cell patient be treated with gram-negative coverage with Levaquin and/or Zosyn also for UTI will be on antibiotics. Patient be seen gastroenterology and possible need an ERCP for extraction of the stone. Review of Systems CONSTITUTIONAL: Well-developed no acute respiratory distress. EYES: No icterus sclerae, no conjunctivitis. EARS, NOSE, MOUTH, THROAT, and FACE: No sore throat, lymphadenopathy, carotid bruits or deformity. RESPIRATORY: Mild dyspnea and shortness of breath CARDIOVASCULAR: Positive PND orthopnea no angina positive palpitation with A. fib. GASTROINTESTINAL: Positive abdominal discomfort and pain with painless jaundice slight nausea with no vomiting. GENITOURINARY: Negative for Hematuria or UTI, no kidney stones. INTEGUMENT/BREAST: Negative for any muscular injury with mild osteoarthritis.. Generalized arthralgia HEMATOLOGIC/LYMPHATIC: Negative for bleed or purpura. Jaundice and anemia MUSCULOSKELTAL: Negative for Myalgia or arthralgia. NEURLOGICAL: No LOC, Sz or syncope, blurred vision dizziness or abnormality.. BEHAVIORAL/PSYCH: Negative. ENDOCRINE: Negative. Past Medical History Past Medical History: Diabetes Mellitus, Osteoarthritis (OA) Additional Past Medical History / Comment(s): NIDDM type II, arthritis bilateral knees. IBS History of Any Multi-Drug Resistant Organisms: None Reported Past Surgical History: Cholecystectomy Additional Past Surgical History / Comment(s): Bilateral cataract removals with lens implants. Past Anesthesia/Blood Transfusion Reactions: No Reported Reaction Additional Past Anesthesia/Blood Transfusion Reaction / Comment(s): No transfusion history Past Psychological History: No Psychological Hx Reported Smoking Status: Never smoker Past Alcohol Use History: None Reported Additional Past Alcohol Use History / Comment(s): She resides alone with help of grandson and daughter She is independent. Past Drug Use History: None Reported - Past Family History Father Family Medical History: Vascular Disorder Additional Family Medical History / Comment(s): Father from a ruptured cerebral aneurysm in his 80s. Mother Family Medical History: CVA/TIA Additional Family Medical History / Comment(s): Mother is 94 yrs old with history of CVA. at age 96 Brother(s) Family Medical History: No Reported History Additional Family Medical History / Comment(s): Patient has one brother with no major medical issues. Sister(s) Family Medical History: No Reported History Additional Family Medical History / Comment(s): Patient has two sisters one of them with arrythmia. Daughter(s) Family Medical History: Diabetes Mellitus Additional Family Medical History / Comment(s): Patient has 2 daughters one of them with DM2. Son(s) History Unknown: Yes Family Medical History: No Reported History Additional Family Medical History / Comment(s): Patient has one son no major health issues. Medications and Allergies Home Medications Medication Instructions Recorded Confirmed Type glipiZIDE/METFORMIN HCL 2 tab PO BID 11/13/19 11/26/20 History [glipiZIDE/METFORMIN HCL 5-500 mg] lisinopriL [Zestril] 20 mg PO QAM 08/03/20 11/26/20 History Aspirin 81 mg PO DAILY 11/26/20 11/26/20 History Allergies Allergy/AdvReac Type Severity Reaction Status Date / Time No Known Allergies Allergy Verified 11/26/20 13:29 Physical Exam Vitals: Vital Signs Temp Pulse Pulse Resp BP BP Pulse Ox 11/26/20 17:39 98.2 F 97 16 177/86 99 11/26/20 17:00 98.6 F 98 18 161/91 99 11/26/20 16:00 86 11 L 143/77 99 11/26/20 14:53 96 18 139/72 99 11/26/20 13:36 110 H 20 138/76 99 11/26/20 12:32 90 17 135/76 98 11/26/20 11:49 98.4 F 106 H 18 155/85 97 Intake and Output 11/26/20 11/26/20 11/26/20 06:59 14:59 22:59 Other: Weight 79.832 kg 79.832 kg General Appearance: Alert, cooperative, no distress, appears stated age. Neck HEENT: Supple, no lymphadenopathy, no thyroid enlargement, no carotid bruits. Lungs: Decreased breath some bilateral rhonchi especially in the right lower lobe with mild expiratory wheezes. Chest Wall: Decrease expansion with deep inspiration no tenderness and no deformity was found on exam, no costochondral pain or discomfort. Heart: Regular rate and rhythm, S1, S2 normal, no murmur, rub or gallop. Back: Symmetric, no curvature, ROM normal, no CVA tenderness. Abdomen: Soft positive bowel sounds slight discomfort in the right upper quadrant no rebound or rigidity. Extremities: Extremities normal, atraumatic, no cyanosis or edema. Incision on the left knee looks fine. Pulses: 2+ and symmetric. Skin: Skin color, texture, tugor normal, no rashes or lesions. Neurologic: Alert oriented x3 cranial nerves II through XII intact, no motor deficit, no abnormal balance or gait. Results CBC & Chem 7: 11/26/20 12:34 11/26/20 12:34 Labs: Abnormal Lab Results - Last 24 Hours (Table) 11/26/20 11/26/20 11/26/20 Range/Units 12:34 12:34 12:34 RDW 15.9 H (11.5-15.5) % PT 13.7 H (9.0-12.0) sec INR 1.3 H (<1.2) Sodium 136 L (137-145) mmol/L Glucose 213 H (74-99) mg/dL Magnesium 1.2 L (1.6-2.3) mg/dL Total Bilirubin 13.4 H (0.2-1.3) mg/dL AST 142 H (14-36) U/L ALT 111 H (4-34) U/L Alkaline Phosphatase 427 H (38-126) U/L Urine Appearance (Clear) Urine Protein (Negative) Urine Bilirubin (Negative) Ur Leukocyte Esterase (Negative) Urine WBC (0-5) /hpf Urine Bacteria (None) /hpf Urine Mucus (None) /hpf 11/26/20 Range/Units 13:26 RDW (11.5-15.5) % PT (9.0-12.0) sec INR (<1.2) Sodium (137-145) mmol/L Glucose (74-99) mg/dL Magnesium (1.6-2.3) mg/dL Total Bilirubin (0.2-1.3) mg/dL AST (14-36) U/L ALT (4-34) U/L Alkaline Phosphatase (38-126) U/L Urine Appearance Cloudy H (Clear) Urine Protein Trace H (Negative) Urine Bilirubin 2+ H (Negative) Ur Leukocyte Esterase Moderate H (Negative) Urine WBC 17 H (0-5) /hpf Urine Bacteria Many H (None) /hpf Urine Mucus Occasional H (None) /hpf Thrombosis Risk Factor Assmnt - DVT/VTE Prophylaxis DVT/VTE Prophylaxis: Pharmacologic Prophylaxis ordered, Mechanical Prophylaxis ordered - Choose All That Apply Any of the Below Risk Factors Present?: No Other Risk Factors: Yes Each Risk Factor Represents 3 Points: Age 75 years or older Other congenital or acquired thrombophilia - If yes, enter type in comment: No Thrombosis Risk Factor Assessment Total Risk Factor Score: 3 Thrombosis Risk Factor Assessment Level: Moderate Risk Assessment and Plan Assessment: 1 abdominal pain and jaundice: With common duct stone patient will be admitted and treated for ascending cholangitis at this point consult gastroenterology continue to follow liver enzyme daily. 2 painless jaundice: Secondary to common duct stone with to stone blocking the common duct with size of 4.6 cm this point will require most likely intervention with ERCP. 3 tachypnea and shortness of breath combination of A. fib with RVR possible pneumonia. 4 A. fib patient eventually would be on anticoagulation and possible small dose of beta linnea. 5 type 2 diabetes: Has been on glipizide and metformin, will hold medication for now continue Accu-Chek with sliding scale coverage. 6 hypertension: Continue patient on lisinopril 20 mg a day. 7 UTI with possible sepsis combination of UTI and ascending cholangitis patient be on Levaquin and add Zosyn. 8 recent history of left total knee arthroplasty: Has been doing well so far. 9 GI prophylaxis: Patient be on pantoprazole. 10 DVT prophylaxis: Patient will be on heparin or Lovenox subcutaneous. CODE STATUS: Full code. Admit patient to the inpatient service for more than 2 night stay.
[2020-11-26] MEDS: LEVOFLOXACIN 250MG-D5W PMX 250 MG in DEXTROSE/WATER 1 50ML.BAG IVPB SCH (23:11)
[2020-11-27 06:17] LABS: Glucose,Whole Blood 167 mg/dL (75-99)
[2020-11-27] MEDS: INSULIN ASPART (NovoLOG) 100 UNIT/ML VIAL SQ SCH ×4 (06:58→20:05)
[2020-11-27] MEDS: PANTOPRAZOLE 40 MG TABLET PO SCH (07:00)
[2020-11-27] MEDS: lisinopriL 20 MG TAB PO SCH (08:09)
[2020-11-27] MEDS: SODIUM CHLORIDE 0.9% 1,000 ML IV SCH ×2 (08:09→23:54)
[2020-11-27] MEDS: HEPARIN SODIUM,PORCINE 5,000 UNIT/ML 1 ML VIAL SQ SCH ×2 (08:09→19:59)
[2020-11-27] MEDS ORDERED: PHYTONADIONE ORAL 5 MG/5 ML ORAL.SYRG PO STA (09:07)
--- NOTE | 2020-11-27 10:59 | CONS ---
CONSULTATION DATE OF SERVICE: 11/27/2020 REASON FOR CONSULTATION: Obstructive jaundice and CBD stones. HISTORY OF PRESENT ILLNESS: The patient is a 75-year-old pleasant white female admitted to the hospital with intermittent episodes of severe back pain for the last one week duration. She describes the pain to be located mostly in the upper back area radiating along the right back and side. She came to the emergency room about a month ago and was discharged home. For the last one week she has been having these episodes, each episode lasting for about 5 or 6 hours and resolving. Now she is noted to have yellowish discoloration of her skin and came in the emergency room and was noted to have a bilirubin of 30 with elevated serum transaminases. She had an MRCP done that showed dilated common bile duct with 2 filling defects measuring about 1.5 cm in diameter. Hence we are consulted for ERCP. The patient has been complaining of low-grade fever and leukocytosis and presently on broad-spectrum antibiotics and we are consulted for possible ERCP. She is feeling much better. She denies any abdominal pain. No nausea, no vomiting. No fever, chills, or night sweats. PAST MEDICAL HISTORY: Diabetes mellitus, hypertension, degenerative joint disease. PAST SURGICAL HISTORY: Cholecystectomy 25 years ago, bilateral cataract surgery. MEDICATIONS: Medications at home include metformin, Zestril, aspirin. ALLERGIES: No known drug allergies. SOCIAL HISTORY: No smoking. No alcohol use. FAMILY HISTORY: Father had a ruptured cerebral aneurysm and mother had CVA. REVIEW OF SYSTEMS: CARDIOPULMONARY: No chest pain or shortness of breath. GENITOURINARY: No dysuria or hematuria. MUSCULOSKELETAL: Unremarkable. SKIN: Unremarkable. ENDOCRINE: Unremarkable. PSYCHIATRIC: Unremarkable. NEUROLOGICAL: Unremarkable. ENT/VISION: Unremarkable. CONSTITUTIONAL: No recent weight loss. No fever, chills, night sweats. PHYSICAL EXAMINATION: She appears comfortable. No apparent distress. VITAL SIGNS: Stable. Blood pressure is 160/70, pulse rate 80, temperature 98.1. HEENT: Examination unremarkable. Conjunctivae are pink. Sclerae anicteric. Oral cavity no lesions. NECK: No JVD. No lymph node enlargement. CHEST: Clear to auscultation. HEART: Regular rate and rhythm. ABDOMEN: Soft. Bowel sounds are positive. No organomegaly. EXTREMITIES: No pedal edema. NEUROLOGIC: Alert and oriented x3. No focal deficits. LABS: From today WBC 9.6, hemoglobin 12.8, platelets normal. PT/INR is 1.3. T-bilirubin is 13.4, AST 142, ALT 111, and alkaline phosphatase is 427. CA 99 is 327. IMPRESSION: 1. This is a lady who presented to the hospital with intermittent episodes of upper back pain radiating to the right side for the last one week duration. She has elevated LFTs and severe jaundice with a bilirubin of 13.5. MRCP done yesterday showed dilated common bile duct with 2 CBD stones measuring 1.5 and 1.6 cm in diameter. She had a similar episode and was admitted to the hospital a month ago at [facility] with abnormal LFTs, which have improved. She has remote history of cholecystectomy 25 years ago for gallstones. 2. Urinary tract infection. RECOMMENDATIONS: 1. Continue with broad-spectrum antibiotics. 2. Monitor labs closely. 3. We will give her vitamin K for mild coagulopathy. 4. Scheduled for ERCP tomorrow. Discussed with the patient risks, benefits and complications of procedure and she is agreeable to it. Thank you for this consultation. MMODL / IJN: [id number] /
--- NOTE | 2020-11-27 11:24 | P.PN ---
Subjective Progress Note Date: 11/27/20 Principal diagnosis: Painless jaundice, A. fib with RVR, severe weight loss, abnormal liver function tests, to large stone in the common duct, ascending cholangitis, UTI 75-year-old female one of my office patient of seen for the last 4 years who was hospitalized [facility] on on 10 13 to 10/15/2020 with complain of dyspnea tachycardia and tachypnea earlier patient had recent left total knee arthroplasty with Dr. Read at [facility] that she has done very well with surgery patient is known to have history of hypertension diabetes and IBS she had history of cholecystectomy over 25 years ago and she had one problem with the bile duct since her cholecystectomy did not require any intervention. She was hospitalized at [facility] found to have significantly abnormal liver function test with dilated common duct on abdominal ultrasound she was seen gastroenterology and felt no need for intervention at bedtime. Her symptom has improved was discharged home and done very well. Patient had an EGD as an outpatient with Dr. Brice on 10/16/2020 which showed only gastritis and esophagitis. Patient presented to the office today 11/26/2020 with complaint of tachypnea tachycardia mild dyspnea and shortness of breath and found to have painless ja undice. Her EKG showed A. fib with RVR pulse rate still running around 100 beats per minutes with her current symptoms patient was referred to the emergency department to be admitted after workup. Ultrasound of the liver did not show any major abnormality except mild Roldan along with dilated common duct. Patient blood test showed total bilirubin in the 14. Liver function tests were abnormal UA was positive blood sugar was mildly elevated as well. Patient was scheduled for an MRCP which showed to common duct stone causing the dilated common duct with the low-grade temperature and elevated white blood cell patient be treated with gram-negative coverage with Levaquin and/or Zosyn also for UTI will be on antibiotics. Patient be seen gastroenterology and possible need an ERCP for extraction of the stone. 11/27: Patient had to common duct stone found through an MRCP causing ascending cholangitis with obstructive jaundice bilirubin was still elevated, patient seen Dr. Matthew today and planning for an ERCP to extract the stone through the procedure. Patient still have no pain at this point having slight appetite able to tolerate her clear liquid diet today. Objective - Vital Signs Vital signs: Vital Signs Temp 98.1 F 11/26/20 20:00 Pulse 80 11/27/20 03:13 Resp 16 11/27/20 03:13 BP 160/70 11/27/20 03:13 Pulse Ox 95 11/27/20 03:13 Intake & Output 11/26/20 11/26/20 11/27/20 06:59 18:59 06:59 Intake Total 660 Balance 660 Weight 79.832 kg 79.83 kg Intake: Intake, IV Titration 180 Amount Sodium Chloride 0.9% 1, 180 000 ml @ 60 mls/hr IV . [id number] [facility] Rx#:[id number] Oral 480 Other: Voiding Method Toilet # Voids 1 Review of Systems CONSTITUTIONAL: Well-developed no acute respiratory distress. EYES: No icterus sclerae, no conjunctivitis. EARS, NOSE, MOUTH, THROAT, and FACE: No sore throat, lymphadenopathy, carotid bruits or deformity. RESPIRATORY: Mild dyspnea and shortness of breath CARDIOVASCULAR: Positive PND orthopnea no angina positive palpitation with A. fib. GASTROINTESTINAL: Positive abdominal discomfort and pain with painless jaundice slight nausea with no vomiting. GENITOURINARY: Negative for Hematuria or UTI, no kidney stones. INTEGUMENT/BREAST: Negative for any muscular injury with mild osteoarthritis.. Generalized arthralgia HEMATOLOGIC/LYMPHATIC: Negative for bleed or purpura. Jaundice and anemia MUSCULOSKELTAL: Negative for Myalgia or arthralgia. NEURLOGICAL: No LOC, Sz or syncope, blurred vision dizziness or abnormality.. BEHAVIORAL/PSYCH: Negative. ENDOCRINE: Negative. Physical Exam Vitals: Vital Signs Temp Pulse Pulse Resp BP BP Pulse Ox 11/26/20 17:39 98.2 F 97 16 177/86 99 11/26/20 17:00 98.6 F 98 18 161/91 99 11/26/20 16:00 86 11 L 143/77 99 11/26/20 14:53 96 18 139/72 99 11/26/20 13:36 110 H 20 138/76 99 11/26/20 12:32 90 17 135/76 98 11/26/20 11:49 98.4 F 106 H 18 155/85 97 Intake and Output 11/26/20 11/26/20 11/26/20 06:59 14:59 22:59 Other: Weight 79.832 kg 79.832 kg General Appearance: Alert, cooperative, no distress, appears stated age. Neck HEENT: Supple, no lymphadenopathy, no thyroid enlargement, no carotid bruits. Lungs: Decreased breath some bilateral rhonchi especially in the right lower lobe with mild expiratory wheezes. Chest Wall: Decrease expansion with deep inspiration no tenderness and no deformity was found on exam, no costochondral pain or discomfort. Heart: Regular rate and rhythm, S1, S2 normal, no murmur, rub or gallop. Back: Symmetric, no curvature, ROM normal, no CVA tenderness. Abdomen: Soft positive bowel sounds slight discomfort in the right upper quadrant no rebound or rigidity. Extremities: Extremities normal, atraumatic, no cyanosis or edema. Incision on the left knee looks fine. Pulses: 2+ and symmetric. Skin: Skin color, texture, tugor normal, no rashes or lesions. Neurologic: Alert oriented x3 cranial nerves II through XII intact, no motor deficit, no abnormal balance or gait. - Labs CBC & Chem 7: 11/26/20 12:34 11/26/20 12:34 Labs: Abnormal Lab Results - Last 24 Hours (Table) 11/26/20 11/26/20 11/26/20 Range/Units 12:34 12:34 12:34 RDW 15.9 H (11.5-15.5) % PT 13.7 H (9.0-12.0) sec INR 1.3 H (<1.2) Sodium 136 L (137-145) mmol/L Glucose 213 H (74-99) mg/dL POC Glucose (mg/dL) (75-99) mg/dL Magnesium 1.2 L (1.6-2.3) mg/dL Total Bilirubin 13.4 H (0.2-1.3) mg/dL AST 142 H (14-36) U/L ALT 111 H (4-34) U/L Alkaline Phosphatase 427 H (38-126) U/L CA 19-9 Antigen (0.0-34.9) U/mL Urine Appearance (Clear) Urine Protein (Negative) Urine Bilirubin (Negative) Ur Leukocyte Esterase (Negative) Urine WBC (0-5) /hpf Urine Bacteria (None) /hpf Urine Mucus (None) /hpf 11/26/20 11/26/20 11/26/20 Range/Units 12:34 13:26 20:42 RDW (11.5-15.5) % PT (9.0-12.0) sec INR (<1.2) Sodium (137-145) mmol/L Glucose (74-99) mg/dL POC Glucose (mg/dL) 223 H (75-99) mg/dL Magnesium (1.6-2.3) mg/dL Total Bilirubin (0.2-1.3) mg/dL AST (14-36) U/L ALT (4-34) U/L Alkaline Phosphatase (38-126) U/L CA 19-9 Antigen 327.1 H (0.0-34.9) U/mL Urine Appearance Cloudy H (Clear) Urine Protein Trace H (Negative) Urine Bilirubin 2+ H (Negative) Ur Leukocyte Esterase Moderate H (Negative) Urine WBC 17 H (0-5) /hpf Urine Bacteria Many H (None) /hpf Urine Mucus Occasional H (None) /hpf Microbiology - Last 24 Hours (Table) 11/26/20 13:26 Urine Culture - Preliminary Urine,Voided Assessment and Plan Assessment: 1 abdominal pain and jaundice: With common duct stone patient will be admitted and treated for ascending cholangitis at this point consult gastroenterology continue to follow liver enzyme daily. 2 painless jaundice: Secondary to common duct stone with to stone blocking the common duct with size of 1.6 cm this point will require most likely intervention with ERCP. to extractors to stones. 3 ascending cholangitis: Continue gram-negative coverage for now awaiting for blood culture. 4 A. fib patient eventually would be on anticoagulation and possible small dose of beta linnea. 5 type 2 diabetes: Has been on glipizide and metformin, will hold medication for now continue Accu-Chek with sliding scale coverage. 6 hypertension: Continue patient on lisinopril 20 mg a day. 7 UTI with possible sepsis combination of UTI and ascending cholangitis patient be on Levaquin and add Zosyn. 8 recent history of left total knee arthroplasty: Has been doing well so far. 9 GI prophylaxis: Patient be on pantoprazole.
[2020-11-27] MEDS: IBUPROFEN 400 MG TAB PO PRN (12:08)
[2020-11-27 12:14] LABS: Glucose,Whole Blood 317 mg/dL (75-99)
[2020-11-27] MEDS ORDERED: INSULIN ASPART (NovoLOG) 100 UNIT/ML VIAL SQ ONE (12:20)
[2020-11-27] MEDS: METOPROLOL TARTRATE 50 MG TAB PO SCH ×2 (12:23→19:59)
--- NOTE | 2020-11-27 14:16 | P.CRDCN ---
History of Present Illness Consult date: 11/27/20 Requesting physician: Dallas Durán Consult reason: atrial fibrillation Chief complaint: Palpitations History of present illness: History of present illness: This is a 75-year-old female with past medical history of hypertension, hypertensive cardiovascular disease, hyperlipidemia, diabetes mellitus type 2, gastritis and esophagitis on recent EGD done by Dr. Ty on 10/16/2020. Patient states that she presented to her primary care physician with complaints of low back pain that radiated up to her shoulder on the right side. She denies having any nausea, vomiting or diarrhea. She denies any abdominal pain. Patient denies having any chest pain, palpitations, lightheadedness or dizziness. EKG was performed in the office which showed atrial fibrillation at 100 bpm and patient was directed to come into the hospital for evaluation. Patient has also had workup for jaundice and abnormal liver function tests with ultrasound showing diffuse fatty infiltration and/or underlying hepatocellular disease. Persistent mild to moderate extrahepatic biliary dilatation. Patient underwent MRCP which found 2 obstructing calculi in the distal common bile duct. Mild dilation of the biliary tree. Normal pancreas. EKG on presentation was a sinus rhythm with PACs. Patient has been afebrile. Heart rate has been running in the 80s and 90s. Blood pressure currently 160/70. Pulse ox 95% on room air. CBC was unremarkable. INR 1.3. Electrolytes unremarkable. Blood sugar 213. Creatinine 0.67. Troponin negative on one draw. Total bilirubin 13.4, AST 142, ALT 111. Magnesium 1.2. Alkaline phosphatase 427. CA 199 is 327.1. CA 125 is 15. Patient denies having any cardiac history and his lisinopril cardiology once following hospital admission in 2017 at which time she presented with chest pressure and acute coronary syndrome was ruled out. Echocardiogram from November 2019 reveals EF of 50-55%, borderline concentric left ventricular hypertrophy, mild mitral regur gitation and tricuspid regurgitation. Patient has been in normal sinus rhythm overnight but has episodes of heart rate up to the 150s with activity. Review Of Systems: Constitutional: No fever, no chills. No weakness, fatigue or lethargy. EENT: No headache. No dizziness. Lungs: No shortness of breath, cough, no sputum production. No wheezing. Cardiovascular: No chest pain, no lower extremity edema. No palpitations. No paroxysmal nocturnal dyspnea. No orthopnea. No lightheadedness or dizziness. No syncopal episodes. Abdominal: No abdominal pain. No nausea, vomiting. No diarrhea. No constipation. No bloody or tarry stools. No loss of appetite. Genitourinary: No dysuria.. No urinary retention. Musculoskeletal: No myalgias. No muscle weakness, no gait dysfunction, no frequ ent falls. No back pain. No neck pain. Integumentary: No wounds, no lesions. No rash or pruritus. No unusual bruising. Neurologic: No aphasia. No facial droop. No change in mentation. No head injury. No headache. No paralysis. No paresthesia. Physical examination: Gen: This is a 75-year-old female. Patient is sitting in a chair and eating breakfast and appears to be in no acute distress. HEENT: Head is atraumatic, normocephalic. Pupils equal, round. Sclerae is anicteric. NECK: Supple. No JVD. No lymphadenopathy. No thyromegaly. LUNGS: Clear to auscultation. No wheezes or rhonchi. No intercostal retractions. HEART: Regular rate and rhythm. No murmur. ABDOMEN: Soft. Bowel sounds are present. No masses. No tenderness. EXTREMITIES: No pedal edema. No calf tenderness. Dorsalis pedis +2 bilaterally. NEUROLOGICAL: Patient is awake, alert and oriented x3. Cranial nerves 2 through 12 are grossly intact. Assessment: Concern for atrial fibrillation on EKG in the office Episodes of sinus tachycardia with activity Patient currently in normal sinus rhythm with PACs History of hypertension, hypertensive cardio vascular disease Hyperlipidemia Diabetes mellitus type 2 Jaundice with obstructing calculi in the common bile duct and elevated CA 19-9 Plan: Add Lopressor 50 mg twice daily Obtain 2-D echocardiogram and Doppler study to assess cardiac structure and fu nction Further recommendations to follow based upon clinical course Thank you kindly for this consultation. Nurse practitioner note has been reviewed, I agree with documented findings and plan of care. Patient was seen and examined. Past Medical History Past Medical History: Diabetes Mellitus, Osteoarthritis (OA) Additional Past Medical History / Comment(s): NIDDM type II, arthritis bilateral knees. IBS History of Any Multi-Drug Resistant Organisms: None Reported Past Surgical History: Cholecystectomy Additional Past Surgical History / Comment(s): Bilateral cataract removals with lens implants. Past Anesthesia/Blood Transfusion Reactions: No Reported Reaction Additional Past Anesthesia/Blood Transfusion Reaction / Comment(s): No transfusion history Past Psychological History: No Psychological Hx Reported Smoking Status: Never smoker Past Alcohol Use History: None Reported Additional Past Alcohol Use History / Comment(s): She resides alone with help of grandson and daughter She is independent. Past Drug Use History: None Reported - Past Family History Father Family Medical History: Vascular Disorder Additional Family Medical History / Comment(s): Father from a ruptured cerebral aneurysm in his 80s. Mother Family Medical History: CVA/TIA Additional Family Medical History / Comment(s): Mother is 94 yrs old with history of CVA. at age 96 Brother(s) Family Medical History: No Reported History Additional Family Medical History / Comment(s): Patient has one brother with no major medical issues. Sister(s) Family Medical History: No Reported History Additional Family Medical History / Comment(s): Patient has two sisters one of them with arrythmia. Daughter(s) Family Medical History: Diabetes Mellitus Additional Family Medical History / Comment(s): Patient has 2 daughters one of them with DM2. Son(s) History Unknown: Yes Family Medical History: No Reported History Additional Family Medical History / Comment(s): Patient has one son no major health issues. Medications and Allergies Home Medications Medication Instructions Recorded Confirmed Type glipiZIDE/METFORMIN HCL 2 tab PO BID 11/13/19 11/26/20 History [glipiZIDE/METFORMIN HCL 5-500 mg] lisinopriL [Zestril] 20 mg PO QAM 08/03/20 11/26/20 History Aspirin 81 mg PO DAILY 11/26/20 11/26/20 History Allergies Allergy/AdvReac Type Severity Reaction Status Date / Time No Known Allergies Allergy Verified 11/26/20 13:29 Physical Exam Vitals: Vital Signs Temp Pulse Pulse Resp BP BP Pulse Ox 11/27/20 03:13 80 16 160/70 95 11/27/20 01:45 80 18 11/26/20 23:58 80 18 164/80 97 11/26/20 20:00 98.1 F 97 18 141/68 96 11/26/20 17:39 98.2 F 97 16 177/86 99 11/26/20 17:00 98.6 F 98 18 161/91 99 11/26/20 16:00 86 11 L 143/77 99 11/26/20 14:53 96 18 139/72 99 11/26/20 13:36 110 H 20 138/76 99 11/26/20 12:32 90 17 135/76 98 11/26/20 11:49 98.4 F 106 H 18 155/85 97 Intake and Output 11/26/20 11/27/20 11/27/20 22:59 06:59 14:59 Intake Total 660 Balance 660 Intake: Intake, IV Titration 180 Amount Sodium Chloride 0.9% 1, 180 000 ml @ 60 mls/hr IV . [id number] [facility] Rx#:[id number] Oral 480 Other: Voiding Method Toilet Toilet # Voids 1 Weight 79.832 kg 79.83 kg Results 11/26/20 12:34 11/26/20 12:34 Cardiac Enzymes 11/26/20 11/26/20 Range/Units 12:34 12:34 AST 142 H (14-36) U/L Troponin I <0.012 (0.000-0.034) ng/mL Coagulation 11/26/20 Range/Units 12:34 PT 13.7 H (9.0-12.0) sec APTT 26.9 (22.0-30.0) sec CBC 11/26/20 Range/Units 12:34 WBC 9.6 (3.8-10.6) k/uL RBC 4.53 (3.80-5.40) m/uL Hgb 12.8 (11.4-16.0) gm/dL Hct 39.9 (34.0-46.0) % Plt Count 262 (150-450) k/uL Comprehensive Metabolic Panel 11/26/20 Range/Units 12:34 Sodium 136 L (137-145) mmol/L Potassium 4.1 (3.5-5.1) mmol/L Chloride 102 (98-107) mmol/L Carbon Dioxide 25 (22-30) mmol/L BUN 13 (7-17) mg/dL Creatinine 0.67 (0.52-1.04) mg/dL Glucose 213 H (74-99) mg/dL Calcium 9.6 (8.4-10.2) mg/dL AST 142 H (14-36) U/L ALT 111 H (4-34) U/L Alkaline Phosphatase 427 H (38-126) U/L Total Protein 7.5 (6.3-8.2) g/dL Albumin 3.7 (3.5-5.0) g/dL Current Medications Generic Name Dose Route Start Last Admin Trade Name Freq PRN Reason Stop Dose Admin Heparin Sodium (Porcine) 5,000 unit 11/26/20 21:00 11/26/20 20:23 Heparin Sodium,Porcine 5,000 Unit/Ml 1 Ml Vial SQ 5,000 unit Q12HR YARA Administration Sodium Chloride 1,000 mls @ 60 mls/hr 11/26/20 14:30 11/26/20 15:00 Saline 0.9% IV 60 mls/hr .[id number] YARA Administration Levofloxacin/Dextrose 250 mg/ 50 mls @ 50 mls/hr 11/26/20 23:00 11/26/20 23:11 IV Solution IVPB 50 mls/hr Q24H YARA Administration Ibuprofen 400 mg 11/26/20 14:24 Ibuprofen 400 Mg Tab PO Q6HR PRN Mild Pain or Fever > 100.5 Insulin Aspart 0 unit 11/27/20 07:30 11/27/20 06:58 Insulin Aspart (Novolog) 100 Unit/Ml Vial SQ Not Given ACHS [facility] Protocol Lisinopril 20 mg 11/27/20 09:00 Lisinopril 20 Mg Tab PO QAM [facility] Naloxone HCl 0.2 mg 11/26/20 14:24 Naloxone 0.4 Mg/Ml 1 Ml Vial IV Q2M PRN Opioid Reversal Ondansetron HCl 4 mg 11/26/20 14:24 Ondansetron 4 Mg/2 Ml Vial IVP Q8HR PRN Nausea And Vomiting Pantoprazole Sodium 40 mg 11/27/20 07:30 11/27/20 07:00 Pantoprazole 40 Mg Tablet PO 40 mg [id number] YARA Administration Intake and Output 11/26/20 11/27/20 11/27/20 22:59 06:59 14:59 Intake Total 660 Balance 660 Intake: Intake, IV Titration 180 Amount Sodium Chloride 0.9% 1, 180 000 ml @ 60 mls/hr IV . [id number] [facility] Rx#:[id number] Oral 480 Other: Voiding Method Toilet Toilet # Voids 1 Weight 79.832 kg 79.83 kg 11/26/20 12:34 11/26/20 12:34
[2020-11-27] MEDS: Acetaminophen-Codeine 300-30mg TAB PO PRN (17:00)
[2020-11-27 17:17] LABS: Glucose,Whole Blood 188 mg/dL (75-99)
[2020-11-27 20:04] LABS: Glucose,Whole Blood 262 mg/dL (75-99)
[2020-11-27] MEDS: LEVOFLOXACIN 250MG-D5W PMX 250 MG in DEXTROSE/WATER 1 50ML.BAG IVPB SCH (23:21)
[2020-11-28 06:01] LABS: Glucose,Whole Blood 109 mg/dL (75-99)
[2020-11-28] MEDS: INSULIN ASPART (NovoLOG) 100 UNIT/ML VIAL SQ SCH ×4 (06:37→20:38)
[2020-11-28] MEDS: PANTOPRAZOLE 40 MG TABLET PO SCH (06:38)
[2020-11-28] MEDS ORDERED: INDOMETHACIN 50MG SUPPOSITORY RECTAL STA (07:32)
[2020-11-28] MEDS ORDERED: LIDOCAINE 1% INJ 10MG/ML (20 ML MDV) ONE (07:50)
[2020-11-28] MEDS ORDERED: MIDAZOLAM 2 MG/2 ML VIAL ONE (07:50)
[2020-11-28] MEDS ORDERED: PROPOFOL 10 MG/ML 20 ML VIAL IV ONE (07:50)
[2020-11-28] MEDS ORDERED: IV FLUID CONTINUATION 500 ML IV ONE (07:50)
[2020-11-28] MEDS ORDERED: INDOMETHACIN 50MG SUPPOSITORY RECTAL ONE (08:07)
[2020-11-28] MEDS ORDERED: IOPAMIDOL-300 50ML BTL MISCELLANE ONE (08:08)
[2020-11-28] MEDS ORDERED: LACTATED RINGERS 1,000 ML IV ONE (08:47)
--- NOTE | 2020-11-28 08:53 | P.PCN ---
Date of Procedure: 11/28/20 Procedure(s) Performed: Brief history: Patient is a 75 year-old pleasant lady scheduled for an ERCP as part of evaluation of back pain and elevated bilirubin up to 313 with mild elevation of serum transaminases. MRCP revealed CBD stones measuring 15 mm in diameter. She is scheduled for an ERCP for CBD stone extraction today. Procedure performed: ERCP with biliary sphincterotomy and CBD stone extraction and CBD stent placement Preoperative diagnoses: Abdominal pain/jaundice/dilated CBD with CBD stones an MRCP IV sedation per anesthesia: Procedure: After informed consent was obtained from the patient and after the risks benefits and complications including bleeding perforation and pancreatitis ex plained in detail the patient was brought into the endoscopy unit. The patient was placed in prone position and IV conscious sedation was administered by anesthesia under continuous monitoring. The Olympus side-viewing duodenoscope was then inserted into the mouth and esophagus intubated without any difficulty. The scope was gradually advanced into the stomach and duodenum. The major papilla was identified without any difficulty. Initial cannulation resulted in opacification of the common bile duct which was dilated measuring 15 mm in diameter and there was a 1.5 cm filling defect noted with intrahepatic biliary ductal dilation. There was only one filling defect noted. At this time biliary stent enterotomy was performed at 11 o'clock position and was extended to 1 cm in length. At this time 11.5 mm balloon was passed over the guidewire into the proximal CBD and gently inflated and withdrawn but the stone was stuck in the second enterotomy site. At this time I extended the biliary enterotomy by another 3-4 mm in length polyp which there was small amount of oozing identified. The oozing spontaneously subsided. At this time the balloon catheter was passed over the guidewire into the common bile duct gently inflated and withdrawn and a large stone was seen exiting the ampulla. Following this the maneuver was repeated 2 more times and no other filling defects were seen. However because of the clinical suspicion of another stone in the proximal CBD I decided to place a 7-Danish 5 cm x 2 stent to ensure adequate biliary drainage. At this time the procedure was terminated. Pancreatic duct was intentionally not cannulated. Patient tolerated the procedure well. Impression: Dilated CBD with a large filling defect measuring 1.5 cm in size with intrahepatic biliary dilation, status post biliary sphincterotomy with balloon stone extraction and CBD stent placement Pancreatic duct intentionally not cannulated Recommendations: The findings of this examination were discussed with the patient. She'll be started on a clear liquid diet. Monitor labs closely. Continue antibiotics. Will plan on repeat ERCP in 6 weeks for CBD stent removal
--- NOTE | 2020-11-28 09:29 | FL ---
Fluoroscopy INDICATION: Pain FINDINGS: Fluoroscopy time: 1 minute 10 seconds. Images obtained: 3. IMPRESSIONS: 1. Documentation of fluoroscopy.
[2020-11-28] MEDS: HEPARIN SODIUM,PORCINE 5,000 UNIT/ML 1 ML VIAL SQ SCH ×2 (09:36→20:37)
[2020-11-28] MEDS: METOPROLOL TARTRATE 50 MG TAB PO SCH ×2 (09:37→20:38)
[2020-11-28] MEDS: lisinopriL 20 MG TAB PO SCH (09:37)
[2020-11-28] MEDS: Acetaminophen-Codeine 300-30mg TAB PO PRN (10:12)
[2020-11-28] MEDS: IBUPROFEN 400 MG TAB PO PRN (10:13)
[2020-11-28 10:24] LABS: ALT 111 U/L (4-34); AST 164 U/L (14-36); African American GFR (CKD) >90 (>60 ml/min/1.73 sqM); Albumin 3.8 g/dL (3.5-5.0); Alkaline Phosphatase 468 U/L (38-126); Anion Gap 10 mmol/L; Blood Urea Nitrogen 11 mg/dL (7-17); Calcium 9.5 mg/dL (8.4-10.2); Carbon Dioxide 22 mmol/L (22-30); Chloride 108 mmol/L (98-107); Glucose 203 mg/dL (74-99); Non-African American GFR(CKD) >90 (>60 ml/min/1.73 sqM); Potassium 4.2 mmol/L (3.5-5.1); Sodium 140 mmol/L (137-145); Total Bilirubin 14.2 mg/dL (0.2-1.3); Total Protein 7.9 g/dL (6.3-8.2)
[2020-11-28 11:02] LABS: Anisocytosis Slight; Basophils % (A) 1 %; Eosinophils % (A) 1 %; HCT 41.7 % (34.0-46.0); HGB 13.2 gm/dL (11.4-16.0); Lymphocytes # (A) 1.5 k/uL (1.0-4.8); Lymphocytes % (A) 24 %; MCH 28.6 pg (25.0-35.0); MCHC 31.7 g/dL (31.0-37.0); MCV 90.3 fL (80.0-100.0); Monocytes # (A) 0.2 k/uL (0-1.0); Monocytes % (A) 3 %; Neutrophils # (A) 4.3 k/uL (1.3-7.7); Neutrophils % (A) 70 %; Platelet Count 228 k/uL (150-450); RBC 4.62 m/uL (3.80-5.40); RDW 16.2 % (11.5-15.5); WBC 6.2 k/uL (3.8-10.6)
--- NOTE | 2020-11-28 11:08 | P.PN ---
Subjective Progress Note Date: 11/28/20 Principal diagnosis: Painless jaundice, A. fib with RVR, severe weight loss, abnormal liver function tests, to large stone in the common duct, ascending cholangitis, UTI, patient will be going for an ERCP today. 75-year-old female one of my office patient of seen for the last 4 years who was hospitalized [facility] on on 10 13 to 10/15/2020 with complain of dyspnea tachycardia and tachypnea earlier patient had recent left total knee arthroplasty with Dr. Read at [facility] that she has done very well with surgery patient is known to have history of hypertension diabetes and IBS she had history of cholecystectomy over 25 years ago and she had one problem with the bile duct since her cholecystectomy did not require any intervention. She was hospitalized at [facility] found to have significantly abnormal liver function test with dilated common duct on abdominal ultrasound she was seen gastroenterology and felt no need for intervention at bedtime. Her symptom has improved was discharged home and done very well. Patient had an EGD as an outpatient with Dr. Brice on 10/16/2020 which showed only gastritis and esophagitis. Patient presented to the office today 11/26/2020 with complaint of tachypnea tachycardia mild dyspnea and shortness of breath and found to have painless jaundice. Her EKG showed A. fib with RVR pulse rate still running around 100 beats per minutes with her current symptoms patient was referred to the emergency department to be admitted after workup. Ultrasound of the liver did not show any major abnormality except mild [place] along with dilated common duct. Patient blood test showed total bilirubin in the 14. Liver function tests were abnormal UA was positive blood sugar was mildly elevated as well. Patient was scheduled for an MRCP which showed to common duct stone causing the dilated common duct with the low-grade temperature and elevated white blood cell patient be treated with gram-negative coverage with Levaquin and/or Zosyn also for UTI will be on antibiotics. Patient be seen gastroenterology and possible need an ERCP for extraction of the stone. 11/27: Patient had to common duct stone found through an MRCP causing ascending cholangitis with obstructive jaundice bilirubin was still elevated, patient seen Dr. Matthew today and planning for an ERCP to extract the stone through the procedure. Patient still have no pain at this point having slight appetite able to tolerate her clear liquid diet today. 11/28: Patient is going for ERCP to day she is doing slightly but better less jaundice less abdominal pain less complication she responded very well so far to her antibiotics treat the UTI. We will advance diet today after ERCP repeat lab tomorrow possibly discharge home on Sunday. Objective - Vital Signs Vital signs: Vital Signs Temp 98.1 F 11/28/20 08:00 Pulse 65 11/28/20 09:30 Resp 16 11/28/20 08:00 BP 174/78 11/28/20 09:30 Pulse Ox 100 11/28/20 09:30 Intake & Output 11/27/20 11/28/20 11/28/20 18:59 06:59 18:59 Intake Total 1200 500 Output Total 300 Balance 1200 200 Weight 79.7 kg Intake: IV 500 Intake, IV Titration 600 Amount Sodium Chloride 0.9% 1, 600 000 ml @ 60 mls/hr IV . [id number] [facility] Rx#:[id number] Oral 600 Output: Urine 300 Other: Voiding Method Toilet Toilet # Voids 3 1 # Bowel Movements 1 - Exam Review of Systems CONSTITUTIONAL: Well-developed no acute respiratory distress. EYES: No icterus sclerae, no conjunctivitis. EARS, NOSE, MOUTH, THROAT, and FACE: No sore throat, lymphadenopathy, carotid br uits or deformity. RESPIRATORY: Mild dyspnea and shortness of breath CARDIOVASCULAR: Positive PND orthopnea no angina positive palpitation with A. fib. GASTROINTESTINAL: Positive abdominal discomfort and pain with painless jaundice slight nausea with no vomiting. GENITOURINARY: Negative for Hematuria or UTI, no kidney stones. INTEGUMENT/BREAST: Negative for any muscular injury with mild osteoarthritis.. Generalized arthralgia HEMATOLOGIC/LYMPHATIC: Negative for bleed or purpura. Jaundice and anemia MUSCULOSKELTAL: Negative for Myalgia or arthralgia. NEURLOGICAL: No LOC, Sz or syncope, blurred vision dizziness or abnormality.. BEHAVIORAL/PSYCH: Negative. ENDOCRINE: Negative. Physical Exam Vitals: Vital Signs Temp Pulse Pulse Resp BP BP Pulse Ox 11/26/20 17:39 98.2 F 97 16 177/86 99 11/26/20 17:00 98.6 F 98 18 161/91 99 11/26/20 16:00 86 11 L 143/77 99 11/26/20 14:53 96 18 139/72 99 11/26/20 13:36 110 H 20 138/76 99 11/26/20 12:32 90 17 135/76 98 11/26/20 11:49 98.4 F 106 H 18 155/85 97 Intake and Output 11/26/20 11/26/20 11/26/20 06:59 14:59 22:59 Other: Weight 79.832 kg 79.832 kg General Appearance: Alert, cooperative, no distress, appears stated age. Neck HEENT: Supple, no lymphadenopathy, no thyroid enlargement, no carotid bruits. Lungs: Decreased breath some bilateral rhonchi especially in the right lower lobe with mild expiratory wheezes. Chest Wall: Decrease expansion with deep inspiration no tenderness and no deformity was found on exam, no costochondral pain or discomfort. Heart: Regular rate and rhythm, S1, S2 normal, no murmur, rub or gallop. Back: Symmetric, no curvature, ROM normal, no CVA tenderness. Abdomen: Soft positive bowel sounds slight discomfort in the right upper q uadrant no rebound or rigidity. Extremities: Extremities normal, atraumatic, no cyanosis or edema. Incision on the left knee looks fine. Pulses: 2+ and symmetric. Skin: Skin color, texture, tugor normal, no rashes or lesions. Neurologic: Alert oriented x3 cranial nerves II through XII intact, no motor deficit, no abnormal balance or gait. - Labs CBC & Chem 7: 11/28/20 09:56 11/28/20 09:56 Labs: Abnormal Lab Results - Last 24 Hours (Table) 11/27/20 11/27/20 11/27/20 Range/Units 12:11 17:15 20:03 RDW (11.5-15.5) % Chloride (98-107) mmol/L Glucose (74-99) mg/dL POC Glucose (mg/dL) 317 H 188 H 262 H (75-99) mg/dL Total Bilirubin (0.2-1.3) mg/dL AST (14-36) U/L ALT (4-34) U/L Alkaline Phosphatase (38-126) U/L 11/28/20 11/28/20 11/28/20 Range/Units 06:00 09:56 09:56 RDW 16.2 H (11.5-15.5) % Chloride 108 H (98-107) mmol/L Glucose 203 H (74-99) mg/dL POC Glucose (mg/dL) 109 H (75-99) mg/dL Total Bilirubin 14.2 H (0.2-1.3) mg/dL AST 164 H (14-36) U/L ALT 111 H (4-34) U/L Alkaline Phosphatase 468 H (38-126) U/L Microbiology - Last 24 Hours (Table) 11/26/20 13:26 Urine Culture - Preliminary Urine,Voided Gram Neg Bacilli Assessment and Plan Assessment: 1 abdominal pain and jaundice: With common duct stone patient will be admitted and treated for ascending cholangitis at this point consult gastroenterology continue to follow liver enzyme daily. 2 painless jaundice: Secondary to common duct stone with to stone blocking the common duct with size of 1.6 cm this point will require most likely intervention with ERCP. to extractors to stones. Which will be done today with Dr. Matthew. 3 ascending cholangitis: Continue gram-negative coverage for now awaiting for blood culture. Continue IV antibiotic and switched to oral by tomorrow specially the cultures negative. 4 A. fib patient eventually would be on anticoagulation and possible small dose of beta linnea. 5 type 2 diabetes: Has been on glipizide and metformin, will hold medication for now continue Accu-Chek with sliding scale coverage. 6 hypertension: Continue patient on lisinopril 20 mg a day. 7 UTI with possible sepsis combination of UTI and ascending cholangitis patient be on Levaquin and add Zosyn. 8 recent history of left total knee arthroplasty: Has been doing well so far. 9 GI prophylaxis: Patient be on pantoprazole. Discharge planning: Possibly home tomorrow if she is doing well.
[2020-11-28 11:53] LABS: Glucose,Whole Blood 256 mg/dL (75-99)
--- NOTE | 2020-11-28 12:12 | P.PN ---
Subjective Progress Note Date: 11/28/20 History of present illness: This is a 75-year-old female with past medical history of hypertensi on, hypertensive cardiovascular disease, hyperlipidemia, diabetes mellitus type 2, gastritis and esophagitis on recent EGD done by Dr. Ty on 10/16/2020. Patient states that she presented to her primary care physician with complaints of low back pain that radiated up to her shoulder on the right side. She denies having any nausea, vomiting or diarrhea. She denies any abdominal pain. Patie nt denies having any chest pain, palpitations, lightheadedness or dizziness. EKG was performed in the office which showed atrial fibrillation at 100 bpm and patient was directed to come into the hospital for evaluation. Patient has also had workup for jaundice and abnormal liver function tests with ultrasound showing diffuse fatty infiltration and/or underlying hepatocellular disease. Persistent mild to moderate extrahepatic biliary dilatation. Patient underwent MRCP which found 2 obstructing calculi in the distal common bile duct. Mild dilation of the biliary tree. Normal pancreas. EKG on presentation was a sinus rhythm with PACs. Patient has been afebrile. Heart rate has been running in the 80s and 90s. Blood pressure currently 160/70. Pulse ox 95% on room air. CBC was unremarkable. INR 1.3. Electrolytes unremarkable. Blood sugar 213. Creatinine 0.67. Troponin negative on one draw. Total bilirubin 13.4, AST 142, ALT 111. Magnesium 1.2. Alkaline phosphatase 427. CA 199 is 327.1. CA 125 is 15. Patient denies having any cardiac history and his lisinopril cardiology once following hospital admission in 2017 at which time she presented with chest pressure and acute coronary syndrome was ruled out. Echocardiogram from November 2019 reveals EF of 50-55%, borderline concentric left ventricular hypertrophy, mild mitral regurgitation and tricuspid regurgitation. Patient has been in normal sinus rhythm overnight but has episodes of heart rate up to the 150s with activity. 11/28: Patient received vitamin K yesterday with Dr. Abdullahi and INR today is pending. Patient is status post ERCP with biliary sphincterectomy and CBD stone extraction and stent placement. She continues to have significant jaundice. Total bilirubin 14.2, AST 164, ALT 111, alkaline phosphatase 468. He'll need Review Of Systems: Constitutional: No fever, no chills. No weakness, fatigue or lethargy. EENT: No headache. No dizziness. Lungs: No shortness of breath, cough, no sputum production. No wheezing. Cardiovascular: No chest pain, no lower extremity edema. No palpitations. No paroxysmal nocturnal dyspnea. No orthopnea. No lightheadedness or dizziness. No syncopal episodes. Abdominal: No abdominal pain. No nausea, vomiting. No diarrhea. No constipation. No bloody or tarry stools. No loss of appetite. Genitourinary: No dysuria.. No urinary retention. Musculoskeletal: No myalgias. No muscle weakness, no gait dysfunction, no frequent falls. No back pain. No neck pain. Integumentary: No wounds, no lesions. No rash or pruritus. No unusual bruising. Neurologic: No aphasia. No facial droop. No change in mentation. No head injury. No headache. No paralysis. No paresthesia. Physical examination: Gen: This is a 75-year-old female. Patient is sitting in a chair and eating breakfast and appears to be in no acute distress. HEENT: Head is atraumatic, normocephalic. Pupils equal, round. Sclerae is anicteric. NECK: Supple. No JVD. No lymphadenopathy. No thyromegaly. LUNGS: Clear to auscultation. No wheezes or rhonchi. No intercostal ret ractions. HEART: Regular rate and rhythm. No murmur. ABDOMEN: Soft. Bowel sounds are present. No masses. No tenderness. EXTREMITIES: No pedal edema. No calf tenderness. Dorsalis pedis +2 bilateral ly. NEUROLOGICAL: Patient is awake, alert and oriented x3. Cranial nerves 2 through 12 are grossly intact. Assessment: Concern for Paroxysmal atrial fibrillation Episodes of sinus tachycardia with activity History of hypertension, hypertensive cardio vascular disease Hyperlipidemia Diabetes mellitus type 2 Jaundice with obstructing calculi in the common bile duct and elevated CA 19-9, status post ERCP Plan: Continue Lopressor 50 mg twice daily Obtain 2-D echocardiogram and Doppler study to assess cardiac structure and function Continue cardiac monitoring and if patient shows paroxysmal atrial fibrillation, she would benefit from starting on anticoagulation Further recommendations to follow based upon clinical course Thank you kindly for this consultation. Nurse practitioner note has been reviewed, I agree with documented findings and plan of care. Patient was seen and examined. Objective - Vital Signs Vital signs: Vital Signs Temp 98.1 F 11/28/20 08:00 Pulse 65 11/28/20 09:30 Resp 16 11/28/20 08:00 BP 174/78 11/28/20 09:30 Pulse Ox 100 11/28/20 09:30 Intake & Output 11/27/20 11/28/20 11/28/20 18:59 06:59 18:59 Intake Total 1200 500 Output Total 300 Balance 1200 200 Weight 79.7 kg Intake: IV 500 Intake, IV Titration 600 Amount Sodium Chloride 0.9% 1, 600 000 ml @ 60 mls/hr IV . [id number] [facility] Rx#:[id number] Oral 600 Output: Urine 300 Other: Voiding Method Toilet Toilet # Voids 3 1 # Bowel Movements 1 - Labs CBC & Chem 7: 11/28/20 09:56 11/28/20 09:56 Labs: Abnormal Lab Results - Last 24 Hours (Table) 11/27/20 11/27/20 11/27/20 Range/Units 12:11 17:15 20:03 RDW (11.5-15.5) % Chloride (98-107) mmol/L Glucose (74-99) mg/dL POC Glucose (mg/dL) 317 H 188 H 262 H (75-99) mg/dL Total Bilirubin (0.2-1.3) mg/dL AST (14-36) U/L ALT (4-34) U/L Alkaline Phosphatase (38-126) U/L 11/28/20 11/28/20 11/28/20 Range/Units 06:00 09:56 09:56 RDW 16.2 H (11.5-15.5) % Chloride 108 H (98-107) mmol/L Glucose 203 H (74-99) mg/dL POC Glucose (mg/dL) 109 H (75-99) mg/dL Total Bilirubin 14.2 H (0.2-1.3) mg/dL AST 164 H (14-36) U/L ALT 111 H (4-34) U/L Alkaline Phosphatase 468 H (38-126) U/L 11/28/20 Range/Units 11:51 RDW (11.5-15.5) % Chloride (98-107) mmol/L Glucose (74-99) mg/dL POC Glucose (mg/dL) 256 H (75-99) mg/dL Total Bilirubin (0.2-1.3) mg/dL AST (14-36) U/L ALT (4-34) U/L Alkaline Phosphatase (38-126) U/L Microbiology - Last 24 Hours (Table) 11/26/20 13:26 Urine Culture - Preliminary Urine,Voided Gram Neg Bacilli
[2020-11-28] MEDS: SODIUM CHLORIDE 0.9% 1,000 ML IV SCH (12:29)
[2020-11-28 13:14] LABS: INR 1.3 (<1.2); Prothrombin Time 13.3 sec (9.0-12.0)
[2020-11-28 16:49] LABS: Glucose,Whole Blood 197 mg/dL (75-99)
[2020-11-28 20:21] LABS: Glucose,Whole Blood 290 mg/dL (75-99)
[2020-11-28 20:34] VITALS: RESP 16
[2020-11-28] MEDS: LEVOFLOXACIN 250MG-D5W PMX 250 MG in DEXTROSE/WATER 1 50ML.BAG IVPB SCH (23:01)
[2020-11-29] MEDS: PANTOPRAZOLE 40 MG TABLET PO SCH (05:41)
[2020-11-29 05:44] VITALS: TEMP 97.9
[2020-11-29 06:11] LABS: Glucose,Whole Blood 281 mg/dL (75-99)
[2020-11-29] MEDS: INSULIN ASPART (NovoLOG) 100 UNIT/ML VIAL SQ SCH ×2 (06:12→11:26)
[2020-11-29 07:06] LABS: Anisocytosis Slight; Basophils # (A) 0.1 k/uL (0-0.2); Basophils % (A) 1 %; Eosinophils # (A) 0.1 k/uL (0-0.7); Eosinophils % (A) 1 %; HCT 33.7 % (34.0-46.0); HGB 10.6 gm/dL (11.4-16.0); Lymphocytes # (A) 1.4 k/uL (1.0-4.8); Lymphocytes % (A) 20 %; MCH 28.4 pg (25.0-35.0); MCHC 31.5 g/dL (31.0-37.0); MCV 90.1 fL (80.0-100.0); Monocytes # (A) 0.2 k/uL (0-1.0); Monocytes % (A) 3 %; Neutrophils % (A) 73 %; Platelet Count 256 k/uL (150-450); RBC 3.74 m/uL (3.80-5.40); RDW 16.3 % (11.5-15.5); WBC 6.9 k/uL (3.8-10.6)
[2020-11-29 07:26] LABS: ALT 90 U/L (4-34); AST 125 U/L (14-36); African American GFR (CKD) >90 (>60 ml/min/1.73 sqM); Alkaline Phosphatase 379 U/L (38-126); Amylase 59 U/L (30-110); Anion Gap 9 mmol/L; Blood Urea Nitrogen 19 mg/dL (7-17); Calcium 8.6 mg/dL (8.4-10.2); Carbon Dioxide 20 mmol/L (22-30); Chloride 108 mmol/L (98-107); Glucose 264 mg/dL (74-99); Lipase 91 U/L (23-300); Magnesium 1.3 mg/dL (1.6-2.3); Non-African American GFR(CKD) >90 (>60 ml/min/1.73 sqM); Sodium 137 mmol/L (137-145); Total Bilirubin 11.7 mg/dL (0.2-1.3); Total Protein 6.2 g/dL (6.3-8.2)
[2020-11-29] MEDS: lisinopriL 20 MG TAB PO SCH (08:25)
[2020-11-29] MEDS: METOPROLOL TARTRATE 50 MG TAB PO SCH (08:25)
[2020-11-29] MEDS: HEPARIN SODIUM,PORCINE 5,000 UNIT/ML 1 ML VIAL SQ SCH (08:26)
[2020-11-29] MEDS: SODIUM CHLORIDE 0.9% 1,000 ML IV SCH (08:26)
[2020-11-29] MEDS ORDERED: Magnesium Replacement Protocol 1 EACH MISC MISCELLANE PRN (08:42)
[2020-11-29] MEDS: MAGNESIUM SULFATE-D5W PMX 1 GM in DEXTROSE/WATER 1 100ML.BAG IVPB SCH ×3 (09:05→11:26)
--- NOTE | 2020-11-29 11:05 | P.DS ---
Providers Date of admission: 11/26/20 14:29 Expected date of discharge: 11/29/20 Attending physician: Dallas Durán Consults: 11/26/20 14:25 Consult Physician Urgent Consulting Provider: [facility] Consult Reason/Comments: New-onset A. fib Do you want consulting provider notified?: Yes 11/26/20 14:26 Consult Physician Urgent Consulting Provider: Kelly Abdullahi Consult Reason/Comments: Jaundice, transaminitis Do you want consulting provider notified?: Yes [facility] Course: 75-year-old female one of my office patient of seen for the last 4 years who was [facility] on 10 13 to 10/15/2020 with complain of dyspnea tachycardia and tachypnea earlier patient had recent left total knee arthroplasty with Dr. Read at [facility] that she has done very well with surgery patient is known to have history of hypertension diabetes and IBS she had history of cholecystectomy over 25 years ago and she had one problem with the bile duct since her cholecystectomy did not require any intervention. She was hospitalized at [facility] found to have significantly abnormal liver function test with dilated common duct on abdominal ultrasound she was seen gastroenterology and felt no need for intervention at bedtime. Her symptom has improved was discharged home and done very well. Patient had an EGD as an outpatient with Dr. Brice on 10/16/2020 which showed only gastritis and esophagitis. Patient presented to the office today 11/26/2020 with complaint of tachypnea tachycardia mild dyspnea and shortness of breath and found to have painless jaundice. Her EKG showed A. fib with RVR pulse rate still running around 100 beats per minutes with her current symptoms patient was referred to the emergency department to be admitted after workup. Ultrasound of the liver did not show any major abnormality except mild [place] along with dilated common duct. Patient blood test showed total bilirubin in the 14. Liver function tests were abnormal UA was positive blood sugar was mildly elevated as well. Patient was scheduled for an MRCP which showed to common duct stone causing the dilated common duct with the low-grade temperature and elevated white blood cell patient be treated with gram-negative coverage with Levaquin and/or Zosyn also for UTI will be on antibiotics. Patient be seen gastroenterology and possible need an ERCP for extraction of the stone. 11/27: Patient had to common duct stone found through an MRCP causing ascending cholangitis with obstructive jaundice bilirubin was still elevated, patient seen Dr. Matthew today and planning for an ERCP to extract the stone through the procedure. Patient still have no pain at this point having slight appetite able to tolerate her clear liquid diet today. 11/28: Patient is going for ERCP to day she is doing slightly but better less jaundice less abdominal pain less complication she responded very well so far to her antibiotics treat the UTI. We will advance diet today after ERCP repeat lab tomorrow possibly discharge home on Sunday. 11/29: Yesterday, patient underwent ERCP with Dr. Abdullahi status post intrahepatic biliary dilatation, status post biliary sphincterotomy and balloon stone extraction and CBD stent placement. Pancreatic duct intentionally not cannulated. Recommendations to start clear liquid diet, monitor lab work continue antibiotics and repeat ERCP in 6 weeks for CBD stent removal. Repeat blood work reveals W BC 6.9, hemoglobin 10.7. CO2 20. BUN 19 and creatinine 0.59. Blood sugars in the 200s. Total bilirubin 11.7, AST 125, ALT 90, alkaline phosphatase 379. Lipase 91. Patient has been afebrile, heart rate 87, blood pressure 115/68, pulse ox 97% on room air. She verbalizes that she does not plan to follow-up with cardiology. She is willing to have outpatient event monitor and further discussion with Dr. Durán. Patient is in a sinus rhythm. Magnesium is 1.3 and will be replaced. Urine culture is E. coli, pansensitive. Patient will be discharged home today in stable condition. Repeat lab work to be done in the office next week. DISCHARGE DIAGNOSES 1 abdominal pain and jaundice: With common duct stone, ascending cholangitis status post ERCP. 2 painless jaundice: Secondary to common duct stone 3 ascending cholangitis 4 A. fib, paroxysmal nocturnal completely ruled out 5 type 2 diabetes 6 hypertension 7 UTI 8 recent history of left total knee arthroplasty Discharge planning: home Impression and plan of care have been directed as dictated by the signing physician. Alka Gonsalez nurse practitioner acting as scribe for signing physician. Patient Condition at Discharge: Good Plan - Discharge Summary New Discharge Prescriptions: New Metoprolol Tartrate [Lopressor] 50 mg PO BID #60 tab Magnesium Oxide [Mag-Ox] 400 mg PO DAILY #30 tablet Levofloxacin [Levaquin] 500 mg PO DAILY 5 Days #5 tab Continue glipiZIDE/METFORMIN HCL [glipiZIDE/METFORMIN HCL 5-500 mg] 2 tab PO BID lisinopriL [Zestril] 20 mg PO QAM Aspirin 81 mg PO DAILY Discharge Medication List glipiZIDE/METFORMIN HCL [glipiZIDE/METFORMIN HCL 5-500 mg] 2 tab PO BID 11/13/19 [History] lisinopriL [Zestril] 20 mg PO QAM 08/03/20 [History] Aspirin 81 mg PO DAILY 11/26/20 [History] Levofloxacin [Levaquin] 500 mg PO DAILY 5 Days #5 tab 11/29/20 [Rx] Magnesium Oxide [Mag-Ox] 400 mg PO DAILY #30 tablet 11/29/20 [Rx] Metoprolol Tartrate [Lopressor] 50 mg PO BID #60 tab 11/29/20 [Rx] Follow up Appointment(s)/Referral(s): Dallas Durán MD [Primary Care Provider] - 1 Week Kelly Abdullahi MD [STAFF PHYSICIAN] - 3 Weeks Discharge Disposition: HOME SELF-CARE
[2020-11-29 11:24] LABS: Glucose,Whole Blood 261 mg/dL (75-99)
[2020-11-29 12:46] VITALS: BP 116/44; PULSE 79
--- NOTE | 2020-11-29 14:02 | P.PN ---
Subjective Progress Note Date: 11/29/20 Patient seen and examined lying in bed. She is status post ERCP yesterday with stent placement. She is being discharged home today. Bilirubin has improved to 11.7 from 14.2, alkaline phosphatase 379, AST 125, ALT 90. Abdominal pain has improved. She denies any nausea or vomiting. Objective - Vital Signs Vital signs: Vital Signs Temp 97.9 F 11/29/20 08:00 Pulse 87 11/29/20 08:00 Resp 16 11/29/20 05:43 BP 115/68 11/29/20 08:00 Pulse Ox 97 11/29/20 08:00 Intake & Output 11/28/20 11/29/20 11/29/20 18:59 06:59 18:59 Intake Total 1380 420 Output Total 300 Balance 1080 420 Weight 81.4 kg Intake: IV 500 Oral 880 420 Output: Urine 300 Other: Voiding Method Toilet Toilet # Voids 2 1 - Exam General appearance: The patient is alert, oriented, in no acute distress. HET: Head is normocephalic and atraumatic. Conjunctiva pink. Sclera icteric. Neck: Supple without lymphadenopathy. Abdomen: Soft, nontender, nondistended with bowel sounds. No guarding or rigidity. Skin: Deeply jaundiced Extremities: Normal skin color and turgor. No pedal edema Neurological: No focal deficits. Alert and oriented 3. - Labs CBC & Chem 7: 11/29/20 06:41 11/29/20 06:41 Labs: Abnormal Lab Results - Last 24 Hours (Table) 11/28/20 11/28/20 11/28/20 Range/Units 09:56 11:51 12:20 RBC (3.80-5.40) m/uL Hgb (11.4-16.0) gm/dL Hct (34.0-46.0) % RDW 16.2 H (11.5-15.5) % PT 13.3 H (9.0-12.0) sec INR 1.3 H (<1.2) Chloride (98-107) mmol/L Carbon Dioxide (22-30) mmol/L BUN (7-17) mg/dL Glucose (74-99) mg/dL POC Glucose (mg/dL) 256 H (75-99) mg/dL Magnesium (1.6-2.3) mg/dL Total Bilirubin (0.2-1.3) mg/dL AST (14-36) U/L ALT (4-34) U/L Alkaline Phosphatase (38-126) U/L Total Protein (6.3-8.2) g/dL Albumin (3.5-5.0) g/dL 11/28/20 11/28/20 11/29/20 Range/Units 16:43 20:19 06:10 RBC (3.80-5.40) m/uL Hgb (11.4-16.0) gm/dL Hct (34.0-46.0) % RDW (11.5-15.5) % PT (9.0-12.0) sec INR (<1.2) Chloride (98-107) mmol/L Carbon Dioxide (22-30) mmol/L BUN (7-17) mg/dL Glucose (74-99) mg/dL POC Glucose (mg/dL) 197 H 290 H 281 H (75-99) mg/dL Magnesium (1.6-2.3) mg/dL Total Bilirubin (0.2-1.3) mg/dL AST (14-36) U/L ALT (4-34) U/L Alkaline Phosphatase (38-126) U/L Total Protein (6.3-8.2) g/dL Albumin (3.5-5.0) g/dL 11/29/20 11/29/20 Range/Units 06:41 06:41 RBC 3.74 L (3.80-5.40) m/uL Hgb 10.6 L (11.4-16.0) gm/dL Hct 33.7 L (34.0-46.0) % RDW 16.3 H (11.5-15.5) % PT (9.0-12.0) sec INR (<1.2) Chloride 108 H (98-107) mmol/L Carbon Dioxide 20 L (22-30) mmol/L BUN 19 H (7-17) mg/dL Glucose 264 H (74-99) mg/dL POC Glucose (mg/dL) (75-99) mg/dL Magnesium 1.3 L (1.6-2.3) mg/dL Total Bilirubin 11.7 H (0.2-1.3) mg/dL AST 125 H (14-36) U/L ALT 90 H (4-34) U/L Alkaline Phosphatase 379 H (38-126) U/L Total Protein 6.2 L (6.3-8.2) g/dL Albumin 3.0 L (3.5-5.0) g/dL Microbiology - Last 24 Hours (Table) 11/26/20 13:26 Urine Culture - Final Urine,Voided Escherichia coli Assessment and Plan (1) Choledocholithiasis Narrative/Plan: Lady who presented to the hospital with intermittent episodes of upper back pain radiating to the right side her last one week duration. She has elevated LFTs and severe jaundice with a bilirubin noted of 13.5 on admission. An MRCP was done that showed dilated common bile duct but to CBD stones measuring 1.5 and 1.6 cm in diameter. She had a similar episode and was admitted to the hospital approximately a month ago at [facility] with abnormal LFTs which have improved. She had a remote history of a cholecystectomy 25 years ago for gallstones. The patient underwent an ERCP yesterday endings that included a dilated CBD with a large filling defect measuring 1.5 cm in size with intrahepatic biliary dilation status post biliary sphincterectomy with balloon stone extraction and CBD stent placement. Current Visit: No Status: Acute Code(s): K80.50 - CALCULUS OF BILE DUCT W/O CHOLANGITIS OR CHOLECYST W/O OBST SNOMED Code(s): 929807707 (2) Jaundice Current Visit: Yes Status: Acute Code(s): R17 - UNSPECIFIED JAUNDICE SNOMED Code(s): 88851710 (3) Transaminitis Current Visit: Yes Status: Acute Code(s): R74.01 - ELEVATION OF LEVELS OF LIVER TRANSAMINASE LEVELS SNOMED Code(s): 384660170 Plan: 1. Supportive care 2. Advance diet to full liquid diet 3. Repeat CMP 4. May be discharged home from a gastroenterology standpoint with close follow- up. She will need to follow-up with gastroenterology in 2-3 weeks to schedule ERCP for stent removal in [address] Brice I agree with the dictator's note, documented as a scribe by Araceli Hyatt.
--- NOTE | 2020-11-29 15:08 | P.PN ---
Subjective This is a pleasant 75-year-old female past medical history significant for hypertension, dyslipidemia, diabetes mellitus and gastritis and esophagitis. She does not follow regularly with a missing persons investigator. She is seen and examined sitting up in the chair in no acute distress. She denies symptoms of chest pain, shortness of breath, dizziness or palpitations. Blood pressure 115/68 heart rate 87 afebrile maintaining oxygen saturation on room air. Laboratory data reviewed, WBC 6.9, hemoglobin 10.6, platelets 256, sodium 137, potassium 4, creatinine 0.59, magnesium 1.3 and ongoing elevated liver enzymes with improvement from yesterday. Currently maintained on lisinopril 20 mg daily and metoprolol 50 mg twice a day. Telemetry tracings have been unremarkable for an acute arrhythmia. Recommended echocardiogram has been canceled by the primary care team. GENERAL: Well-appearing, well-nourished and in no acute distress. Jaundice. NECK: Supple without JVD or thyromegaly. LUNGS: Breath sounds clear to auscultation bilaterally. Respiration equal and unlabored. No wheezes, rales or rhonchi. HEART: Regular rate and rhythm without murmurs, rubs or gallops. S1 and S2 heard. EXTREMITIES: Normal range of motion, no edema. No clubbing or cyanosis. Peripheral pulses intact. ASSESSMENT Sinus tachycardia Obstructing calculi in the common bile duct status post ERCP, sphincterectomy and stent placement Hypertension Diabetes mellitus PLAN Clinically stable from a cardiac perspective. Recommend follow-up as an outpatient with Dr. Bunch however the patient states she will call the office if she has a problem. Nurse Practitioner note has been reviewed, I agree with a documented findings and plan of care. Patient was seen and examined. Objective - Vital Signs Vital signs: Vital Signs Temp 97.9 F 11/29/20 05:43 Pulse 84 11/29/20 05:43 Resp 16 11/29/20 05:43 BP 118/66 11/29/20 05:43 Pulse Ox 97 11/29/20 05:43 Intake & Output 11/28/20 11/29/20 11/29/20 18:59 06:59 18:59 Intake Total 1380 420 Output Total 300 Balance 1080 420 Weight 81.4 kg Intake: IV 500 Oral 880 420 Output: Urine 300 Other: Voiding Method Toilet Toilet # Voids 2 1 - Labs CBC & Chem 7: 11/29/20 06:41 11/29/20 06:41 Labs: Abnormal Lab Results - Last 24 Hours (Table) 11/28/20 11/28/20 11/28/20 Range/Units 09:56 09:56 11:51 RBC (3.80-5.40) m/uL Hgb (11.4-16.0) gm/dL Hct (34.0-46.0) % RDW 16.2 H (11.5-15.5) % PT (9.0-12.0) sec INR (<1.2) Chloride 108 H (98-107) mmol/L Carbon Dioxide (22-30) mmol/L BUN (7-17) mg/dL Glucose 203 H (74-99) mg/dL POC Glucose (mg/dL) 256 H (75-99) mg/dL Magnesium (1.6-2.3) mg/dL Total Bilirubin 14.2 H (0.2-1.3) mg/dL AST 164 H (14-36) U/L ALT 111 H (4-34) U/L Alkaline Phosphatase 468 H (38-126) U/L Total Protein (6.3-8.2) g/dL Albumin (3.5-5.0) g/dL 11/28/20 11/28/20 11/28/20 Range/Units 12:20 16:43 20:19 RBC (3.80-5.40) m/uL Hgb (11.4-16.0) gm/dL Hct (34.0-46.0) % RDW (11.5-15.5) % PT 13.3 H (9.0-12.0) sec INR 1.3 H (<1.2) Chloride (98-107) mmol/L Carbon Dioxide (22-30) mmol/L BUN (7-17) mg/dL Glucose (74-99) mg/dL POC Glucose (mg/dL) 197 H 290 H (75-99) mg/dL Magnesium (1.6-2.3) mg/dL Total Bilirubin (0.2-1.3) mg/dL AST (14-36) U/L ALT (4-34) U/L Alkaline Phosphatase (38-126) U/L Total Protein (6.3-8.2) g/dL Albumin (3.5-5.0) g/dL 11/29/20 11/29/20 11/29/20 Range/Units 06:10 06:41 06:41 RBC 3.74 L (3.80-5.40) m/uL Hgb 10.6 L (11.4-16.0) gm/dL Hct 33.7 L (34.0-46.0) % RDW 16.3 H (11.5-15.5) % PT (9.0-12.0) sec INR (<1.2) Chloride 108 H (98-107) mmol/L Carbon Dioxide 20 L (22-30) mmol/L BUN 19 H (7-17) mg/dL Glucose 264 H (74-99) mg/dL POC Glucose (mg/dL) 281 H (75-99) mg/dL Magnesium 1.3 L (1.6-2.3) mg/dL Total Bilirubin 11.7 H (0.2-1.3) mg/dL AST 125 H (14-36) U/L ALT 90 H (4-34) U/L Alkaline Phosphatase 379 H (38-126) U/L Total Protein 6.2 L (6.3-8.2) g/dL Albumin 3.0 L (3.5-5.0) g/dL Microbiology - Last 24 Hours (Table) 11/26/20 13:26 Urine Culture - Final Urine,Voided Escherichia coli
== END 2020-11-29 15:00 | disposition home or self-care (01) | DRG 445 ==
LOC: EC 11:41 → 3SCARD 14:29
PROVIDERS: ADMIT Internal Medicine Geriatric Medicine; ATTEND Internal Medicine Geriatric Medicine
PROC: 0FC98ZZ Extirpation of Matter from Common Bile Duct, Via Natural or Artificial Opening Endoscopic (ICD-10-PCS; principal; 2020-11-28 08:00)
PROC: 0F798DZ Dilation of Common Bile Duct with Intraluminal Device, Via Natural or Artificial Opening Endoscopic (ICD-10-PCS; principal; 2020-11-28 08:00)
DX: K80.31 Calculus of bile duct with cholangitis, unspecified, with obstruction (principal); N39.0 Urinary tract infection, site not specified; E11.9 Type 2 diabetes mellitus without complications; E78.5 Hyperlipidemia, unspecified; I08.1 Rheumatic disorders of both mitral and tricuspid valves; I11.9 Hypertensive heart disease without heart failure; Z96.652 Presence of left artificial knee joint; Z96.1 Presence of intraocular lens; M17.0 Bilateral primary osteoarthritis of knee; K29.70 Gastritis, unspecified, without bleeding; M19.90 Unspecified osteoarthritis, unspecified site; K20.90 Esophagitis, unspecified without bleeding; Z79.82 Long term (current) use of aspirin; Z90.49 Acquired absence of other specified parts of digestive tract; Z83.3 Family history of diabetes mellitus; Z82.3 Family history of stroke; Z79.899 Other long term (current) drug therapy; Z98.42 Cataract extraction status, left eye; Z98.41 Cataract extraction status, right eye; Z82.49 Family history of ischemic heart disease and other diseases of the circulatory system
CPT/HCPCS: 36415; 43262; 43264; 43274; 71046; 74181; 74328; 76705; 80053; 81001; 82150; 83690; 83735; 84443; 84484; 85025; 85610; 85730; 86301; 86304; 87077; 87086; 87186; 93005; 96374; 99285

== ENCOUNTER → 2021-01-12 | Outpatient (CLI) | payer MEDICARE ==
[2021-01-12 16:01] LABS: Basophils # (A) 0.04 X 10*3/uL (0.00-0.10); Basophils % (A) 0.7 %; Eosinophils # (A) 0.07 X 10*3/uL (0.04-0.35); Eosinophils % (A) 1.1 %; HCT 42.7 % (37.2-46.3); Lymphocytes # (A) 1.69 X 10*3/uL (0.90-5.00); Lymphocytes % (A) 27.5 %; MCH 28.3 pg (27.0-32.0); MCHC 30.4 g/dL (32.0-37.0); Monocytes # (A) 0.35 X 10*3/uL (0.20-1.00); Monocytes % (A) 5.7 %; Neutrophils # (A) 3.93 X 10*3/uL (1.80-7.70); Neutrophils % (A) 63.9 %; Platelet Count 191 X 10*3/uL (140-440); RBC 4.59 X 10*6/uL (4.10-5.20); WBC 6.15 X 10*3/uL (4.50-10.00)
[2021-01-12 17:29] LABS: INR 0.97 (0.90-1.11); Prothrombin Time 10.6 sec (9.9-11.9)
[2021-01-12 20:20] LABS: African American GFR (CKD) 83.6 (60.0-200.0); Albumin 4.5 g/dL (3.80-4.90); Albumin/Globulin Ratio 1.73 (1.60-3.17); Anion Gap 15.2 mmol/L (4.00-12.00); BUN/Creat Ratio 18.75 Ratio (12.00-20.00); Calcium 9.8 mg/dL (8.7-10.3); Carbon Dioxide 18.8 mmol/L (21.6-31.8); Globulin 2.6 g/dL (1.6-3.3); Non-African American GFR(CKD) 72.1 (60.0-200.0); Potassium 4.3 mmol/L (3.5-5.5); Total Bilirubin 1.1 mg/dL (0.3-1.2); Total Protein 7.1 g/dL (6.2-8.2)
== END | disposition home or self-care (01) ==
LOC: LABWHC1 07:52
PROVIDERS: ATTEND Nurse Practitioner
DX: K80.37 Calculus of bile duct with acute and chronic cholangitis with obstruction (principal)
CPT/HCPCS: 36415; 80053; 85025; 85610

== ENCOUNTER → 2021-02-04 | Day surgery (SDC) | payer MEDICARE ==
[2021-01-19 13:02] VITALS: BMI 27.8
[~2021-02-04] MED LIST changes: -ACETAMINOPHEN TAB 500 MG TAB PO ONE; -DEXAMETHASONE SOD PHOSPHATE 10 MG/ML 1 ML VIAL IV ONE; -HYDROmorphone 0.5 MG/0.5 ML SYRINGE IVP PRN; +INDOMETHACIN 50MG SUPPOSITORY RECTAL ONE; +LACTATED RINGERS 1,000 ML IV SCH; +LEVOFLOXACIN 500MG-D5W PMX 500 MG in DEXTROSE/WATER 1 100ML.BAG IVPB STA; -LIDOCAINE 1% (10MG/ML) FOR IV START INTRADERMA PRN; -MELOXICAM 7.5 MG TAB PO ONE; -MIDAZOLAM 2 MG/2 ML VIAL IV PRN; -ONDANSETRON 4 MG/2 ML VIAL IVP ONE; -TRANEXAMIC ACID 1,000 MG in SODIUM CHLORIDE 0.9% 100 ML IVPB ONE
[2021-02-04 11:32] VITALS: BP 182/86; PULSE 94; RESP 18; TEMP 97.8
== END ==
LOC: ORWHC2ENDO 11:05
PROVIDERS: ATTEND Internal Medicine Gastroenterology
DX: K80.37 Calculus of bile duct with acute and chronic cholangitis with obstruction (principal); I48.91 Unspecified atrial fibrillation; I10 Essential (primary) hypertension; Z86.16 Personal history of COVID-19; E11.9 Type 2 diabetes mellitus without complications; M19.90 Unspecified osteoarthritis, unspecified site; Z96.0 Presence of urogenital implants; Z53.8 Procedure and treatment not carried out for other reasons

== ENCOUNTER 2021-02-18 11:30 | Day surgery (SDC) | payer MEDICARE ==
[2021-02-17 08:38] VITALS: BMI 27.8
[~2021-02-18 11:30] MED LIST changes: -INDOMETHACIN 50MG SUPPOSITORY RECTAL ONE; -LEVOFLOXACIN 500MG-D5W PMX 500 MG in DEXTROSE/WATER 1 100ML.BAG IVPB STA; +LIDOCAINE 1% (10MG/ML) FOR IV START INTRADERMA PRN
[2021-02-18 12:06] VITALS: RESP 16; TEMP 97.5
[2021-02-18 12:16] LABS: Glucose,Whole Blood 165 mg/dL (75-99)
[2021-02-18 12:35] LABS: Basophils # (A) 0.1 k/uL (0-0.2); Basophils % (A) 1 %; Eosinophils # (A) 0.1 k/uL (0-0.7); Eosinophils % (A) 1 %; HCT 43.2 % (34.0-46.0); HGB 14.7 gm/dL (11.4-16.0); Lymphocytes # (A) 2.6 k/uL (1.0-4.8); Lymphocytes % (A) 35 %; MCH 28.6 pg (25.0-35.0); MCHC 34.1 g/dL (31.0-37.0); MCV 83.9 fL (80.0-100.0); Mean Platelet Volume 6.8; Monocytes # (A) 0.4 k/uL (0-1.0); Monocytes % (A) 6 %; Neutrophils # (A) 4.2 k/uL (1.3-7.7); Neutrophils % (A) 55 %; Platelet Count 203 k/uL (150-450); RBC 5.15 m/uL (3.80-5.40); WBC 7.6 k/uL (3.8-10.6)
[2021-02-18] MEDS ORDERED: INDOMETHACIN 50MG SUPPOSITORY RECTAL ONE (12:42)
[2021-02-18 12:43] LABS: Prothrombin Time 10.8 sec (9.0-12.0)
[2021-02-18] MEDS ORDERED: LEVOFLOXACIN 500MG-D5W PMX 500 MG in DEXTROSE/WATER 1 100ML.BAG IVPB STA (12:43)
[2021-02-18 12:47] LABS: ALT 23 U/L (4-34); AST 35 U/L (14-36); African American GFR (CKD) >90 (>60 ml/min/1.73 sqM); Albumin 4.3 g/dL (3.5-5.0); Alkaline Phosphatase 157 U/L (38-126); Anion Gap 7 mmol/L; Blood Urea Nitrogen 15 mg/dL (7-17); Calcium 9.6 mg/dL (8.4-10.2); Carbon Dioxide 24 mmol/L (22-30); Chloride 104 mmol/L (98-107); Glucose 168 mg/dL (74-99); Non-African American GFR(CKD) 87 (>60 ml/min/1.73 sqM); Potassium 4.1 mmol/L (3.5-5.1); Sodium 135 mmol/L (137-145); Total Bilirubin 0.6 mg/dL (0.2-1.3); Total Protein 7.7 g/dL (6.3-8.2)
[2021-02-18] MEDS ORDERED: PROPOFOL 10 MG/ML 20 ML VIAL IV ONE (13:30)
[2021-02-18] MEDS ORDERED: LIDOCAINE 1% INJ 10MG/ML (20 ML MDV) ONE (13:30)
[2021-02-18] MEDS ORDERED: IOPAMIDOL-300 50ML BTL INJ ONE (13:40)
--- NOTE | 2021-02-18 13:49 | P.PCN ---
Date of Procedure: 02/18/21 Procedure(s) Performed: Brief history: Patient is a 75 year-old pleasant lady scheduled for an ERCP as part of history of CBD stones for which she underwent ERCP with CBD stone extraction in November 2020. She was noted to have 2 large stones in the CBD and one of which was extracted and subsequently she wanted had a CBD stent. She is scheduled for ERCP with CBD stone extraction and CBD stent removal. Procedure performed: ERCP with CBD stent removal and balloon sweep Preoperative diagnoses: History of choledocholithiasis/recent ERCP with CBD stent IV sedation per anesthesia: Procedure: After informed consent was obtained from the patient and after the risks benefits and complications including bleeding perforation and pancreatitis explained in detail the patient was brought into the endoscopy unit. The patient was placed in prone position and IV conscious sedation was administered by anesthesia under continuous monitoring. The Olympus side-viewing duodenoscope was then inserted into the mouth and esophagus intubated without any difficulty. The scope was gradually advanced into the stomach and duodenum. The major papilla was identified without any difficulty. There was evidence of biliary stent enterotomy noted. The previously placed CBD stent was removed using a snare without any difficulty. Following this, the bile duct was cannulated using the tapered-tip catheter and upon injection of the dye the common bile duct appeared dilated measuring at least 1.5 cm in diameter with a vague filling defect in the distal common bile duct. At this time and using 11.5 mm balloon, the common bile duct was cannulated and passed into the proximal CBD and the balloon was inflated. It was gently withdrawn and did not see any stones exiting the ampulla. This maneuver was repeated couple of times and occlusion cholangiogram was performed and no filling defects were noted. At this time the procedure was terminated. Patient tolerated the procedure well. Impression: Patent biliary sphincterotomy CBD stent removal as described above Dilated common bile duct with a faint filling defect status post balloon sweep several times with no stones exiting the ampulla Recommendations: The findings of this examination were discussed with the patient as well as a family. She will be discharged home after recovery. She'll be seen in office if needed and has any recurrent symptoms.
[2021-02-18 14:25] VITALS: BP 172/94; PULSE 91
--- NOTE | 2021-02-18 14:51 | FL ---
Fluoroscopy INDICATION: Pain FINDINGS: Fluoroscopy time: Not available seconds. Images obtained: 1. IMPRESSIONS: 1. Documentation of fluoroscopy.
== END 2021-02-18 14:41 | disposition home or self-care (01) ==
LOC: ORWHC2ENDO 11:30
PROVIDERS: ATTEND Internal Medicine Gastroenterology
DX: Z45.89 Encounter for adjustment and management of other implanted devices (principal); Z87.898 Personal history of other specified conditions; E11.9 Type 2 diabetes mellitus without complications; M19.90 Unspecified osteoarthritis, unspecified site; Z86.16 Personal history of COVID-19; Z79.84 Long term (current) use of oral hypoglycemic drugs; Z79.82 Long term (current) use of aspirin; Z79.899 Other long term (current) drug therapy
CPT/HCPCS: 80053; 85025; 85610; 74330; 43277; 43275; J1956; J2001; J2704; Q9967; 43260

== ENCOUNTER → 2021-04-26 | Outpatient (CLI) | payer MEDICARE | END | disposition home or self-care (01) | LOC: LABPAT 08:18 | PROVIDERS: ATTEND Orthopaedic Surgery | DX: Z01.812 Encounter for preprocedural laboratory examination (principal) | CPT/HCPCS: 87070 ==

== ENCOUNTER 2021-05-02 10:41 | Day surgery (SDC) | payer MEDICARE ==
[2021-04-29 11:28] VITALS: BMI 28.1
--- NOTE | 2021-05-01 12:02 | HP ---
HISTORY AND PHYSICAL REASON FOR ADMISSION: Surgery scheduled for 05/02/2021 HISTORY OF PRESENT ILLNESS: Alejandrina Pena is a 75-year-old patient seen with symptomatic right knee osteoarthritis. We discussed options for treatment. She elected to proceed with right total knee arthroplasty. Consent was obtained. Medical clearance was provided by Dr. Dallas Durán. PAST MEDICAL HISTORY: Hypertension, anq-kqeeqix-fpvniyrlo diabetes. PAST SURGICAL HISTORY: Cholecystectomy, left total knee arthroplasty. DAILY MEDICATIONS: Lisinopril, aspirin. ALLERGIES: NONE. SOCIAL HISTORY: She denies tobacco use. PHYSICAL EVALUATION OF THE RIGHT KNEE: Range of motion is -6/7-100. Mild effusion. Tenderness medial joint line. Crepitus medial patellofemoral compartments and range of motion. Pain with patellofemoral compression. Ligaments stable. Hip rotation without pain. Distal neurovascular exam is intact. RADIOGRAPHS: Right knee radiographs reveal severe osteoarthritic changes. IMPRESSION: 1. Right knee osteoarthritis. 2. Hypertension. 3. Hyperlipidemia. 4. Vkz-cnymjmx-icxwywpbp diabetes. PLAN: Right total knee arthroplasty. Surgery scheduled for 05/02/2021. MMODL / IJN: [id number] /
[~2021-05-02 10:41] MED LIST changes: +ACETAMINOPHEN TAB 500 MG TAB PO PRN; +DEXAMETHASONE SOD PHOSPHATE 4 MG/ML 1 ML VIAL IV ONE; +HYDROmorphone 0.5 MG/0.5 ML SYRINGE IVP PRN; -LACTATED RINGERS 1,000 ML IV SCH; -LIDOCAINE 1% (10MG/ML) FOR IV START INTRADERMA PRN; +MELOXICAM 7.5 MG TAB PO PRN; +MIDAZOLAM 2 MG/2 ML VIAL IV PRN; +ONDANSETRON 4 MG/2 ML VIAL IVP ONE; +ROPIVACAINE/EPI/CLONIDINE/KET 50 ML SYRINGE MISCELLANE PRN; +TRANEXAMIC ACID 1,000 MG in SODIUM CHLORIDE 0.9% 100 ML IVPB PRN
[2021-05-02] MEDS: LACTATED RINGERS 1,000 ML IV SCH (11:08)
[2021-05-02 11:10] LABS: Glucose,Whole Blood 165 mg/dL (75-99)
[2021-05-02] MEDS ORDERED: fentaNYL (PF) 50 MCG/ML 2 ML AMP IV ONE (11:19)
[2021-05-02] MEDS ORDERED: MIDAZOLAM 2 MG/2 ML VIAL IV ONE (11:19)
[2021-05-02] MEDS ORDERED: PROPOFOL 10 MG/ML 20 ML VIAL IV ONE (11:40)
[2021-05-02] MEDS ORDERED: TRANEXAMIC ACID 1,000 MG/10 ML VIAL ONE (11:40)
[2021-05-02] MEDS ORDERED: ROPIVACAINE 5 MG/ML 30 ML VIAL ONE (11:40)
[2021-05-02] MEDS ORDERED: SODIUM CHLORIDE 0.9% 100 ML BAG ONE (11:40)
[2021-05-02] MEDS ORDERED: ceFAZolin 1,000 MG in SODIUM CHLORIDE 0.9% 1,000 ML IRRIGATION ONE (12:14)
[2021-05-02] MEDS ORDERED: ONDANSETRON 4 MG/2 ML VIAL IVP PRN (13:10)
[2021-05-02] MEDS ORDERED: NALOXONE 0.4 MG/ML 1 ML VIAL IV PRN (13:10)
[2021-05-02] MEDS ORDERED: HYDROmorphone 0.2 MG/1 ML SYRINGE IVP PRN (13:10)
[2021-05-02] MEDS ORDERED: HYDROcodone/APAP 5-325MG 1 EACH TAB PO PRN (13:10)
[2021-05-02] MEDS ORDERED: HYDROmorphone 0.5 MG/0.5 ML SYRINGE IVP PRN (13:10)
--- NOTE | 2021-05-02 13:10 | P.OP ---
Date of Procedure: 05/02/21 Preoperative Diagnosis: Right knee osteoarthritis Postoperative Diagnosis: Right knee osteoarthritis Procedure(s) Performed: Right total knee arthroplasty Implants: 1. Depuy attune size 6 right cruciate retaining cemented femur 2. Depuy attune size 6 fixed bearing cemented tibial baseplate 3. Depuy attune size 6 fixed bearing cruciate retaining 7 mm polyethylene tibial insert 4. Depuy attune 35 mm all polyethylene cemented patella Anesthesia: regional (Adductor canal catheter, I pack block), spinal Surgeon: Randolph Read Utilities Operator #1: Sundeep Wood Estimated Blood Loss (ml): 55 Pathology: other (Bone) Condition: stable Disposition: PACU Indications for Procedure: 75-year-old patient seen with symptomatic right knee osteoarthritis. After treatment options were discussed, she elected to proceed with right total knee arthroplasty. Operative Findings: see description of procedure Description of Procedure: Patient was taken to the operative suite after having an adductor canal catheter placed by the department of anesthesia. Patient underwent a spinal anesthetic by the department of anesthesia. Patient was given preoperative IV intake antibiotics and TXA. A well-padded tourniquet was placed about the right lower extremity. The lower extremity was then prepped and draped in the normal sterile orthopedic fashion. The extremity was elevated, a tourniquet was insufflated to 300. A standard anterior incision was made sharply through skin. Dissection was taken down through the subcutaneous soft tissues down to the extensor mechanism. A medial arthrotomy was performed, patella was everted and knee was flexed. There was advanced osteoarthritis noted. I introduced my distal intramedullary femoral drill. I then introduced the distal femoral cutting jig. Gilmer CARUSO secured the cutting jig with 2 pins. I held retractors in position while Gilmer CARUSO performed the distal femoral resection through the guide area we now removed her distal femoral cutting guide. We now placed our 4-in-1 femoral cutting block and positioned and it was secured with 2 pins by Gilmer CARUSO while I held the block in position. The distal femoral finishing was now completed. A proximal tibial cutting guide was positioned. I held the guide in the appropriate position with both hands well Gilmer CARUSO inserted stabilizing pins into the guide. Proximal tibial cut was made. We now placed a trial femoral component into position, along with an appropriate size tibial tray and insert. We now took the knee through range of motion and had full extension good flexion and good overall soft tissue balance noted. The patella was everted and stabilized with 2 towel clips held by Gilmer CARUSO while I performed a flush with patellar quad tendon utilizing a fresh sawblade. We templated the patella, appropriate drill holes were made. An appropriate trial patella was positioned, knee was taken through full range of motion with the patella tracking very nicely. The trial patella was removed. Drill holes were made through the femoral component. All trial components were removed after marking off the appropriate rotation of the tibia. Retractors were now positioned along the proximal tibia. An appropriate keel punch was made with the appropriate size tibial guide by myself on Gilmer CARUSO assisted by holding retractors. At this point appropriate size implants were chosen and opened. The joint was irrigated copiously with pulse lavage mechanical irrigation. The posterior capsule was infiltrated with local analgesic. The wound was irrigated with pulse lavage mechanical irrigation. We mixed antibiotic methylmethacrylate. We placed the knee into flexion. We placed multiple retractors assisted by Gilmer CARUSO to expose the proximal tibia. Once the methyl methacrylate was ready, the tibial component was cemented into place removing any excess methylmethacrylate form by both myself and Gilmer CARUSO. The femoral component was cemented into place removing the removing any excess methylmethacrylate performed by both myself and Gilmer CARUSO. We then inserted the appropriate size polyethylene tibial insert. We made sure that it was locked into position. We took the knee into full extension, and then back in a flexion making sure we had removed any excess methylmethacrylate. The patellar component was then cemented down and secured with clamp. Excess methylmethacrylate removed. We kept the knee in full extension, patellar clamp in position until methylmethacrylate had hardened. Once it had hardened the patellar clamp was removed. The knee was taken through full range of motion. The patella tracked nicely. There was good soft tissue balancing. The tourniquet was now released. Additional hemostasis was achieved via electrocautery. A second gram of TXA was given. The wound again was irrigated with pulse lavage mechanical irrigation. The superficial soft tissues were infiltrated local analgesic. The extensor mechanism was repaired with Ethibond. We checked the repair with range of motion and it was stable. The subcutaneous soft tissues were repaired with Vicryl in layers. The skin was approximated with pernio/Dermabond. Sterile dressings were applied followed by loose web roll and José bandage. The patient was transferred to a bed, and taken to recovery in stable and satisfactory condition. Gilmer CARUSO assisted with this complex procedure.
[2021-05-02] MEDS ORDERED: ROPIVACAINE 0.2%-NS ON-Q PUMP 1,090 MG, EMPTY PAIN BALL 1 EACH MISCELLANE PRN (13:35)
[2021-05-02 13:49] LABS: Glucose,Whole Blood 146 mg/dL (75-99)
--- NOTE | 2021-05-02 14:13 | XR ---
EXAMINATION TYPE: XR knee limited RT DATE OF EXAM: 05/02/2021 COMPARISON: NONE HISTORY: 75-year-old female evaluation for postoperative abnormality and alignment TECHNIQUE: 2 views FINDINGS: Images show placement of right total knee arthroplasty. Both distal femoral and proximal tibial compo nents of the prosthesis are well seated without periprosthetic fracture. Alignment grossly anatomic. Anterior soft tissue swelling with soft tissue air as well as intra-articular air related to recent o peration. IMPRESSION: Uncomplicated postoperative appearance right total knee arthroplasty.
--- NOTE | 2021-05-02 15:33 | P.ANPRN ---
Procedure Note - Anesthesia - Nerve Block Performed Right Adductor Canal Time Out Performed: Yes (11:18) Date of Procedure: 05/02/21 Procedure Start Time: :18 Procedure Stop Time: :33 Location of Patient: PreOp Indication: Acute Post-Operative Pain, Requested by Surgeon (Dr Read) Sedation Type: Sedate with meaningful contact maintained Preparation: Sterile Prep, Sterile Dressing Position: Supine Catheter: Indwelling Needle Types: Pajunk Needle Gauge: 21 Ultrasound used to visualize needle placement: Yes Ultrasound used to observe medication spread: Yes Injectate: 0.5% Ropivacaine (see comment for volume) (15cc) Blood Aspirated: No Pain Paresthesia on Injection Noted: No Resistance on Injection: Normal Image Stored and Saved: Yes Events: Uneventful and Well Tolerated
--- NOTE | 2021-05-02 15:35 | P.ANPRN ---
Procedure Note - Anesthesia - Nerve Block Performed Right iPack Time Out Performed: Yes Date of Procedure: 05/02/21 Procedure Start Time: 11:34 Procedure Stop Time: 11:42 Location of Patient: PreOp Indication: Acute Post-Operative Pain, Requested by Surgeon (Dr Read) Sedation Type: Sedate with meaningful contact maintained Preparation: Sterile Prep Position: Supine Catheter: None Needle Types: Pajunk Needle Gauge: 21 Ultrasound used to visualize needle placement: Yes Ultrasound used to observe medication spread: Yes Injectate: 0.5% Ropivacaine (see comment for volume) (15cc + 5cc PF Normal saline) Blood Aspirated: No Pain Paresthesia on Injection Noted: No Resistance on Injection: Normal Image Stored and Saved: Yes Events: Uneventful and Well Tolerated
[2021-05-02] MEDS: HYDROcodone/APAP 5-325MG 1 EACH TAB PO PRN (17:00)
[2021-05-02] MEDS: SODIUM CHLORIDE 0.9% 1,000 ML IV SCH (18:11)
[2021-05-02] MEDS: HYDROmorphone 0.5 MG/0.5 ML SYRINGE IVP PRN (18:34)
[2021-05-02] MEDS: metFORMIN 500 MG TAB PO SCH (20:20)
[2021-05-02] MEDS: METOPROLOL TARTRATE 50 MG TAB PO SCH (20:20)
[2021-05-02] MEDS: glipiZIDE 10 MG TAB PO SCH (20:21)
[2021-05-02] MEDS: PREGABALIN 75 MG CAP PO SCH (20:21)
[2021-05-02] MEDS: ENOXAPARIN 30 MG/0.3 ML SYRINGE SQ SCH (20:22)
[2021-05-02 20:35] LABS: Glucose,Whole Blood 323 mg/dL (75-99)
[2021-05-02] MEDS ORDERED: SENNOSIDES-DOCUSATE SODIUM 1 EACH TAB PO SCH (21:00)
[2021-05-02 22:19] VITALS: RESP 16
[2021-05-03] MEDS: HYDROmorphone 0.5 MG/0.5 ML SYRINGE IVP PRN (03:57)
[2021-05-03] MEDS: LACTATED RINGERS 1,000 ML IV SCH (04:47)
--- NOTE | 2021-05-03 05:51 | P.CONS ---
History of Present Illness - Reason for Consult Consult date: 05/02/21 Medical management, post right total knee arthroplasty Requesting physician: Randolph Read - Chief Complaint Post right total knee arthroplasty, history of type 2 diabetes, osteoarthri - History of Present Illness HISTORY OF PRESENT ILLNESS 75-year-old female well my office patient with known for long time with history of A. fib with RVR, history of type 2 diabetes, hypertension and hyperlipidemia who was hospitalized last [facility] back in 11/26/2020 for painless jaundice along with abnormal liver function test. Patient had significant weight loss for over 20 pounds earlier had recent left total knee arthroplasty with Dr. Read Renee has been doing very well with it. 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 Patient's symptoms has resolved eventually had gained a few pounds since. Patient has been doing well and was scheduled earlier to have elective right total knee arthroplasty which was rescheduled with Dr. Read on good timing and end up having right total knee arthroplasty today successfully with no major complication. Patient was admitted to the floor still have been on pain management system, hemodynamically has been stable and pain is well controlled at the time. REVIEW OF SYSTEMS Constitutional: No fever, no chills, no night sweats. No weight change. No weakness, fatigue or lethargy. No daytime sleepiness. HEENT: No headache. No blurred vision or double vision, no loss of vision. No loss of Hearing, no ringing in the ears, no dizziness. No nasal drainage or congestion. No epistaxis. No sore throat. Lungs: No shortness of breath, cough, no sputum production. No wheezing. Cardiovascular: Still have history of A. fib with slight edema occasionally Abdominal: No abdominal pain. No nausea, vomiting. No diarrhea. No constipation. No bloody or tarry stools.. No loss of appetite. Genitourinary: No dysuria, increased frequency, urgency. No urinary retention. Mild incontinence Musculoskeletal: Positive generalized myalgia and arthralgia with slight discomfort in the right knee area. Integumentary: No wounds, no lesions. No rash or pruritus. No unusual bruising. No change in hair or nails. Neurologic: No aphasia. No facial droop. No change in mentation. No head injury. No headache. No paralysis. No paresthesia. Psychiatric: No depression. No anxiety. No mood swings. Endocrine: No abnormal blood sugars. No weight change. No excessive sweating or thirst. No cold intolerance. SOCIAL HISTORY She never smoked, no alcohol abuse, she is retired has been living alone. FAMILY HISTORY Positive for father dying from's cerebral hemorrhage from aneurysm rupture in his 80s, mother from stroke at age 96, patient has one brother is living and well. Patient had 2 sister with mild arrhythmia. Patient has 2 children both are doing well one of them has type 2 diabetes. PHYSICAL EXAMINATION Gen: This is a well-developed does not look in any respiratory distress. HEENT: Head is atraumatic, normocephalic. Pupils equal, round. Sclerae is anicteric. NECK: Supple. No JVD. No lymphadenopathy. No thyromegaly. LUNGS: Clear to auscultation. No wheezes or rhonchi. No intercostal retractions. HEART: Regular rate and rhythm. No murmur. ABDOMEN: Soft. Bowel sounds are present. No masses. No tenderness. EXTREMITIES: No pedal edema. No calf tenderness. Right knee still and brace currently surgical site looks fine with no hemorrhage no hematoma or bleeding no induration. NEUROLOGICAL: Patient is awake, alert and oriented x3. Cranial nerves 2 through 12 are grossly intact. ASSESSMENT AND PLAN 1 post right total knee arthroplasty: Watch patient hemodynamic status, continue anticoagulation, pain management, continue GI and pulmonary prophylaxis. History of tachycardia with previous history of A. fib: Pulse rate has been under control currently still on beta linnea. 3-2 diabetes: Continue glipizide/metformin along with pioglitazone, continue Accu-Chek sliding scales coverage. 4 hypertension: Has been on lisinopril 20 mg a day continue medication. 5 hyperlipidemia: Has not been on any statin at this point because of the generalized muscle and joint pain her LDL target is to be below 70. 6 history of anemia: Mostly iron deficiency continue iron supplement and m ultivitamins. 7 GI prophylaxis: Patient be on pantoprazole. 8 DVT prophylaxis: Remain on aspirin per orthopedic protocol. 9 pain management: Continue to have pain management system along with hydro codone as needed. CODE STATUS: Full code. Dr. Read thank you very much for the consult and for can be any further help to please let me know Past Medical History Past Medical History: Diabetes Mellitus, Hypertension, Osteoarthritis (OA) Additional Past Medical History / Comment(s): NIDDM type II, arthritis bilateral knees. IBS. TESTED + FOR COVID January 2021, states had very mild case. Has received both Covid vaccines. History of Any Multi-Drug Resistant Organisms: None Reported Past Surgical History: Cholecystectomy, Joint Replacement Additional Past Surgical History / Comment(s): Bilateral cataract removals with lens implants,total lt knee,ERCP Past Anesthesia/Blood Transfusion Reactions: No Reported Reaction Additional Past Anesthesia/Blood Transfusion Reaction / Comm: No transfusion his tory. Past Psychological History: Anxiety Additional Psychological History / Comment(s): She now resides alone. She is independent. Smoking Status: Never smoker Past Alcohol Use History: None Reported Additional Past Alcohol Use History / Comment(s): She resides alone with help of grandson and daughter She is independent. Past Drug Use History: None Reported - Past Family History Father Family Medical History: Vascular Disorder Additional Family Medical History / Comment(s): Father from a ruptured cerebral aneurysm in his 80s. Mother Family Medical History: CVA/TIA Additional Family Medical History / Comment(s): Mother at age 96. Brother(s) Family Medical History: No Reported History Additional Family Medical History / Comment(s): Patient has one brother with no major medical issues. Sister(s) Family Medical History: No Reported History Additional Family Medical History / Comment(s): Patient has two sisters one of them with arrythmia. Daughter(s) Family Medical History: Diabetes Mellitus Additional Family Medical History / Comment(s): Patient has 2 daughters one of them with DM2. Son(s) History Unknown: Yes Family Medical History: No Reported History Additional Family Medical History / Comment(s): Patient has one son no major health issues. Medications and Allergies Home Medications Medication Instructions Recorded Confirmed Type glipiZIDE/METFORMIN HCL 2 tab PO BID 11/13/19 04/29/21 History [glipiZIDE/METFORMIN HCL 5-500 mg] lisinopriL [Zestril] 20 mg PO QAM 08/03/20 05/02/21 History Aspirin 81 mg PO DAILY 11/26/20 04/29/21 History Metoprolol Tartrate [Lopressor] 50 mg PO BID #60 tab 11/29/20 05/02/21 Rx Pioglitazone HCl 15 mg PO DAILY 04/29/21 04/29/21 History Allergies Allergy/AdvReac Type Severity Reaction Status Date / Time No Known Allergies Allergy Verified 05/02/21 10:59 Physical Exam Vitals: Vital Signs Temp Pulse Pulse Resp BP BP Pulse Ox 05/02/21 14:15 60 16 160/72 99 05/02/21 14:14 171/84 05/02/21 14:00 52 L 16 142/67 100 05/02/21 13:45 54 L 16 147/72 100 05/02/21 13:29 96.8 F L 55 L 12 116/58 98 05/02/21 11:41 58 L 16 177/79 97 05/02/21 11:16 188/90 05/02/21 10:59 98.1 F 74 16 208/93 97 Intake and Output 05/02/21 05/02/21 05/02/21 06:59 14:59 22:59 Intake Total 901 Output Total 55 Balance 846 Intake: IV 901 Output: Estimated Blood Loss 55 Other: Weight 82.2 kg Results Labs: Abnormal Lab Results - Last 24 Hours (Table) 05/02/21 05/02/21 Range/Units 11:07 13:46 POC Glucose (mg/dL) 165 H 146 H (75-99) mg/dL
[2021-05-03 07:16] VITALS: BP 135/76; PULSE 74; TEMP 98.2
[2021-05-03 07:23] LABS: Glucose,Whole Blood 196 mg/dL (75-99)
[2021-05-03] MEDS ORDERED: PANTOPRAZOLE 40 MG TABLET PO SCH (07:30)
[2021-05-03] MEDS: metFORMIN 500 MG TAB PO SCH (07:54)
[2021-05-03] MEDS: ENOXAPARIN 30 MG/0.3 ML SYRINGE SQ SCH (07:54)
[2021-05-03] MEDS: PREGABALIN 75 MG CAP PO SCH (07:54)
[2021-05-03] MEDS: METOPROLOL TARTRATE 50 MG TAB PO SCH (07:55)
[2021-05-03] MEDS: HYDROcodone/APAP 5-325MG 1 EACH TAB PO PRN (07:55)
[2021-05-03] MEDS: glipiZIDE 10 MG TAB PO SCH (07:55)
[2021-05-03] MEDS ORDERED: PIOGLITAZONE 15 MG TAB PO SCH (09:00)
[2021-05-03] MEDS ORDERED: lisinopriL 20 MG TAB PO SCH (09:00)
[2021-05-03 09:20] LABS: Basophils # (A) 0.04 X 10*3/uL (0.00-0.10); Basophils % (A) 0.3 %; Eosinophils # (A) 0.01 X 10*3/uL (0.04-0.35); Eosinophils % (A) 0.1 %; HCT 41.8 % (37.2-46.3); HGB 13.3 g/dL (12.0-15.0); Lymphocytes # (A) 2.18 X 10*3/uL (0.90-5.00); Lymphocytes % (A) 16.2 %; MCHC 31.8 g/dL (32.0-37.0); MCV 91.3 fL (80.0-97.0); Mean Platelet Volume 10.3 fL (9.5-12.2); Monocytes # (A) 1.07 X 10*3/uL (0.20-1.00); Neutrophils # (A) 10.09 X 10*3/uL (1.80-7.70); Platelet Count 203 X 10*3/uL (140-440); RBC 4.58 X 10*6/uL (4.10-5.20); RDW 15.5 % (11.5-14.5); WBC 13.45 X 10*3/uL (4.50-10.00)
[2021-05-03] MEDS: SODIUM CHLORIDE 0.9% 1,000 ML IV SCH (10:23)
[2021-05-03 11:20] LABS: Glucose,Whole Blood 283 mg/dL (75-99)
--- NOTE | 2021-05-03 12:35 | P.DS ---
Providers Date of admission: 05/02/2021 Expected date of discharge: 05/03/21 Attending physician: Randolph Read Consults: 05/02/21 13:10 Consult Physician Routine Consulting Provider: Dallas Durán Reason/Comments: Medical management Do you want consulting provider notified?: Yes Primary care physician: Dallas Durán Hospital Course: Date of admission: 05/02/2021 Date of discharge: 05/03/2021 Admission diagnosis: Right knee osteoarthritis Discharge diagnosis: Same Attending physician: Dr. Read Surgical procedures: Right total knee arthroplasty Brief history: Patient is a 75-year-old female with a history of progressive primary right knee osteoarthritis. At this point patient has failed conservative treatment measures and has opted to proceed with a elective right total knee arthroplasty. Hospital course: Details of patient's surgery can be found in operative report. Patient tolerated the procedure well and was subsequently transported to orthopedic floor. Patient's orthopeidc and medical care was provided daily. Patient had daily laboratory tests performed for evaluation of overall blood counts . Patient had daily physical therapy to include strengthening range of motion as well as education with walker ambulation. Patient was treated with Lovenox for their postoperative DVT prophylaxis during their inpatient stay. Patient was noted to have a relatively uneventful postoperative course. Patient reported satisfactory pain control with oral pain medications by postoperative day 1. Patient showed satisfactory progress with physical therapy. Patient moved steadily through the program and had no difficulty meeting the goals by postoperative day 1. Given patient's otherwise satisfactory course and having met physical therapy goals, plan is to discharge patient home on postoperative day 1. Discharge condition/disposition: Patient will be discharged home in stable condition. Discharge medications: Instructions are given on resumption of patient's normal daily medications per primary care recommendation, in addition patient will be prescribed Lyrica 75 mg twice a day 7 days, then Lyrica 75 mg daily 7 days; aspirin 81 mg twice a day 30 days; senna. Discharge instructions: 1. Wound care and infection precautions, keep incision dry and covered while showering, no lotions, creams, moisturizers. No soaking, tubs, pools, hottubs. Do not scrub over the incision. 2. Weight-bear as tolerated with walker / cane until follow-up. 3. Ice and elevate when necessary. Do not exceed 20 minutes per hour with ice pack. 4. Utilize compression sleeve until seen at first follow up appointment. 5. Visiting nursing care. 6. Home physical therapy including home CPM. 7. Pain meds and anticoagulants per prescription. 8. Pain medication has potential to cause constipation. Increase oral fluid and fiber intake. Contact primary care provider if you have not had a bowel movement within 48 hours after discharge 9. No anti-inflammatory medication until discussed at first post operative visit, this including Motrin, Aleve, Mobic, Diclofenac. 10. Follow up in office at 2 weeks postop with Gilmer Wood PA-C / Kurtis Barboza PA-C 11. Follow up with your primary care doctor 7-10 days after discharge. 12. Contact [facility] with any questions, . Assessment: Right knee osteoarthritis Procedures: Right knee total arthroplasty Patient Condition at Discharge: Good Plan - Discharge Summary Discharge Rx Participant: Yes New Discharge Prescriptions: New Aspirin [Adult Low Dose Aspirin EC] 81 mg PO BID #60 tablet. Pregabalin [Lyrica] 75 mg PO BID #21 cap No Action glipiZIDE/METFORMIN HCL [glipiZIDE/METFORMIN HCL 5-500 mg] 2 tab PO BID lisinopriL [Zestril] 20 mg PO QAM Aspirin 81 mg PO DAILY Metoprolol Tartrate [Lopressor] 50 mg PO BID #60 tab Pioglitazone HCl 15 mg PO DAILY Discharge Medication List glipiZIDE/METFORMIN HCL [glipiZIDE/METFORMIN HCL 5-500 mg] 2 tab PO BID 11/13/19 [History] lisinopriL [Zestril] 20 mg PO QAM 08/03/20 [History] Aspirin 81 mg PO DAILY 11/26/20 [History] Metoprolol Tartrate [Lopressor] 50 mg PO BID #60 tab 11/29/20 [Rx] Pioglitazone HCl 15 mg PO DAILY 04/29/21 [History] Aspirin [Adult Low Dose Aspirin EC] 81 mg PO BID #60 tablet. 05/03/21 [Rx] Pregabalin [Lyrica] 75 mg PO BID #21 cap 05/03/21 [Rx] Follow up Appointment(s)/Referral(s): Sundeep Wood PAC [PHYSICIAN ASIC DESIGN ENGINEER] - 2 Weeks Activity/Diet/Wound Care/Special Instructions: Orthopedic Discharge Instructions: 1. Wound care and infection precautions, keep incision dry and covered while showering, no lotions, creams, moisturizers. No soaking, pools, hot tubs. Do not scrub over incision. 2. Weight-bear as tolerated with walker / cane until follow-up. 3. Ice and elevate when necessary. Do not exceed 20 minutes per hour with ice pack. 4. Utilize compression sleeve until seen at first follow up appointment. 5. Pain meds and anticoagulants per prescription. 6. Pain medication has potential to cause constipation. Increase oral fluid and fiber intake. Contact primary care provider if you have not had a bowel movement within 48 hours after discharge. 7. No anti-inflammatory medication until discussed at first post operative visit, this including Motrin, Aleve, Mobic, Diclofenac. 8. Follow up in office at 2 weeks postop with Gilmer Wood PA-C / Kurtis Barboza PA-C 9. Follow up with your primary care doctor 7-10 days after discharge. 10. Contact [facility] with any questions, . Discharge Disposition: HOME WITH HOME HEALTH SERVICES
--- NOTE | 2021-05-03 13:25 | P.PN ---
Subjective Progress Note Date: 05/03/21 HISTORY OF PRESENT ILLNESS 75-year-old female well my office patient with known for long time with history of A. fib with RVR, history of type 2 diabetes, hypertension and hyperlipidemia who was hospitalized last [facility] back in 11/26/2020 for painless jaundice along with abnormal liver function test. Patient had significant weight loss for over 20 pounds earlier had recent left total knee arthroplasty with Dr. Jacek Duran has been doing very well with it. 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 Patient's symptoms has resolved eventually had gained a few pounds since. Patient has been doing well and was scheduled earlier to have elective right total knee arthroplasty which was rescheduled with Dr. Read on good timing and end up having right total knee arthroplasty today successfully with no major complication. Patient was admitted to the floor still have been on pain management system, hemodynamically has been stable and pain is well controlled at the time. 05/03: Patient has been afebrile, heart rate 74, blood pressure 135/76, pulse ox 98% on room air. WBC 13.4, hemoglobin 13.3, platelet count 203. Blood sugars running between 196 this morning and 323 last evening. Patient was started on Lovenox for DVT prophylaxis and aspirin as planned for discharge. Patient denies any new complaints. No chest pain or shortness of breath, no lightheadedness or dizziness, no abdominal pain or nausea. Patient has worked with physical therapy and is planning for discharge home today. Medication reconciliation reviewed. REVIEW OF SYSTEMS Constitutional: No fever, no chills, no night sweats. No weight change. No weakness, fatigue or lethargy. No daytime sleepiness. HEENT: No headache. No blurred vision or double vision, no loss of vision. No loss of Hearing, no ringing in the ears, no dizziness. No nasal drainage or congestion. No epistaxis. No sore throat. Lungs: No shortness of breath, cough, no sputum production. No wheezing. Cardiovascular: Still have history of A. fib with slight edema occasionally Abdominal: No abdominal pain. No nausea, vomiting. No diarrhea. No constipation. No bloody or tarry stools.. No loss of appetite. Genitourinary: No dysuria, increased frequency, urgency. No urinary retention. Mild incontinence Musculoskeletal: Positive generalized myalgia and arthralgia with slight discomfort in the right knee [id number] Integumentary: No wounds, no lesions. No rash or pruritus. No unusual bruising. No change in hair or nails. Neurologic: No aphasia. No facial droop. No change in mentation. No head injury. No headache. No paralysis. No paresthesia. Psychiatric: No depression. No anxiety. No mood swings. Endocrine: No abnormal blood sugars. No weight change. No excessive sweating or thirst. No cold intolerance. PHYSICAL EXAMINATION Gen: This is a well-developed does not look in any respiratory distress. HEENT: Head is atraumatic, normocephalic. Pupils equal, round. Sclerae is a nicteric. NECK: Supple. No JVD. No lymphadenopathy. No thyromegaly. LUNGS: Clear to auscultation. No wheezes or rhonchi. No intercostal retractions. HEART: Regular rate and rhythm. No murmur. ABDOMEN: Soft. Bowel sounds are present. No masses. No tenderness. EXTREMITIES: No pedal edema. No calf tenderness. Right knee still and brace currently surgical site looks fine with no hemorrhage no hematoma or bleeding no induration. NEUROLOGICAL: Patient is awake, alert and oriented x3. Cranial nerves 2 through 12 are grossly intact. ASSESSMENT AND PLAN Will plan for aspirin at discharge 1 post right total knee arthroplasty: Watch patient hemodynamic status, continue anticoagulation, pain management, continue GI and pulmonary prophylaxis. 2. History of tachycardia with previous history of A. fib: Pulse rate has been under control currently still on beta linnea. 3. Diabetes mellitus type II. Continue glipizide/metformin along with pioglitazone, continue Accu-Chek sliding scales coverage. 4 hypertension: Has been on lisinopril 20 mg a day continue medication. 5 hyperlipidemia: Has not been on any statin at this point because of the generalized muscle and joint pain her LDL target is to be below 70. 6 history of anemia: Mostly iron deficiency continue iron supplement and multivitamins. 7 GI prophylaxis: Patient be on pantoprazole. 8 DVT prophylaxis. Patient is on Lovenox. 9 pain management: Continue to have pain management system along with hydrocodone as needed. CODE STATUS: Full code. DISCHARGE PLAN Home with [facility] Impression and plan of care have been directed as dictated by the signing matthieu her. Alka Gonsalez nurse practitioner acting as scribe for signing physician. Objective - Vital Signs Vital signs: Vital Signs Temp 98.2 F 05/03/21 07:14 Pulse 74 05/03/21 07:14 Resp 16 05/03/21 07:14 BP 135/76 05/03/21 07:14 Pulse Ox 98 05/03/21 07:14 Intake & Output 05/02/21 05/03/21 05/03/21 18:59 06:59 18:59 Intake Total 1151 1330 Output Total 455 Balance 696 1330 Weight 82.2 kg Intake: IV 1151 Sodium Chloride 0.9% 1, 200 000 ml @ 50 mls/hr IV . Q20H YARA Rx#:[id number] ceFAZolin 2 gm In Sodium 50 Chloride 0.9% 50 ml @ 100 mls/hr IVPB ONCE PRN Rx# :[id number] Intake, IV Titration 850 Amount Sodium Chloride 0.9% 1, 650 000 ml @ 50 mls/hr IV . Q20H YARA Rx#:[id number] ceFAZolin 2 gm In Sodium 100 Chloride 0.9% 50 ml @ 100 mls/hr IVPB ONCE PRN Rx# :[id number] ceFAZolin 2 gm In Sodium 100 Chloride 0.9% 50 ml @ 100 mls/hr IVPB Q8H YARA Rx#: [id number] Oral 480 Output: Urine 400 Estimated Blood Loss 55 Other: Voiding Method Toilet Toilet # Voids 3 - Labs CBC & Chem 7: 05/03/21 05:40 Labs: Abnormal Lab Results - Last 24 Hours (Table) 05/02/21 05/02/21 05/02/21 Range/Units 11:07 13:46 20:32 WBC (4.50-10.00) X 10*3/uL MCHC (32.0-37.0) g/dL RDW (11.5-14.5) % Immature Gran # (0.00-0.04) X 10*3/uL Neutrophils # (1.80-7.70) X 10*3/uL Monocytes # (0.20-1.00) X 10*3/uL Eosinophils # (0.04-0.35) X 10*3/uL POC Glucose (mg/dL) 165 H 146 H 323 H (75-99) mg/dL 05/03/21 05/03/21 Range/Units 05:40 07:22 WBC 13.45 H (4.50-10.00) X 10*3/uL MCHC 31.8 L (32.0-37.0) g/dL RDW 15.5 H (11.5-14.5) % Immature Gran # 0.06 H (0.00-0.04) X 10*3/uL Neutrophils # 10.09 H (1.80-7.70) X 10*3/uL Monocytes # 1.07 H (0.20-1.00) X 10*3/uL Eosinophils # 0.01 L (0.04-0.35) X 10*3/uL POC Glucose (mg/dL) 196 H (75-99) mg/dL
--- NOTE | 2021-05-03 14:11 | P.PN ---
Subjective Progress Note Date: 05/03/21 Principal diagnosis: Right knee osteoarthritis Patient was examined early this afternoon. Patient was sitting up in chair with legs elevated. Patient states physical therapy went well this morning. Patient says she did walk on the hallway and up-and-down S couple stairs. She says she is in minimal pain and ready to go home. Patient has not had bowel movement, but has been passing gas. Patient also says she has been using incentive spirometer. Patient denies chest pain, fever, shortness of breath, nausea, vomiting, loss of bowel/bladder control, saddle anesthesia. Objective - Vital Signs Vital signs: Vital Signs Temp 98.2 F 05/03/21 07:14 Pulse 74 05/03/21 07:14 Resp 16 05/03/21 07:14 BP 135/76 05/03/21 07:14 Pulse Ox 98 05/03/21 07:14 Intake & Output 05/02/21 05/03/21 05/03/21 18:59 06:59 18:59 Intake Total 1151 1330 Output Total 455 Balance 696 1330 Weight 82.2 kg Intake: IV 1151 Sodium Chloride 0.9% 1, 200 000 ml @ 50 mls/hr IV . Q20H YARA Rx#:[id number] ceFAZolin 2 gm In Sodium 50 Chloride 0.9% 50 ml @ 100 mls/hr IVPB ONCE PRN Rx# :[id number] Intake, IV Titration 850 Amount Sodium Chloride 0.9% 1, 650 000 ml @ 50 mls/hr IV . Q20H YARA Rx#:[id number] ceFAZolin 2 gm In Sodium 100 Chloride 0.9% 50 ml @ 100 mls/hr IVPB ONCE PRN Rx# :[id number] ceFAZolin 2 gm In Sodium 100 Chloride 0.9% 50 ml @ 100 mls/hr IVPB Q8H YARA Rx#: [id number] Oral 480 Output: Urine 400 Estimated Blood Loss 55 Other: Voiding Method Toilet Toilet # Voids 3 - Exam Right knee: Incision is clean, dry, and intact. The silver foam tape is in good condition. There is minimal soft tissue swelling and ecchymosis surrounding the medial and lateral aspects of the incision. Calf is soft, no tenderness with palpation. Plantar flexion, dorsiflexion, EHL, FHL are intact. Sensory exam to light touch throughout the extremity is intact, dorsal pedis pulses 2+. - Labs CBC & Chem 7: 05/03/21 05:40 Labs: Abnormal Lab Results - Last 24 Hours (Table) 05/02/21 05/02/21 05/03/21 Range/Units 13:46 20:32 05:40 WBC 13.45 H (4.50-10.00) X 10*3/uL MCHC 31.8 L (32.0-37.0) g/dL RDW 15.5 H (11.5-14.5) % Immature Gran # 0.06 H (0.00-0.04) X 10*3/uL Neutrophils # 10.09 H (1.80-7.70) X 10*3/uL Monocytes # 1.07 H (0.20-1.00) X 10*3/uL Eosinophils # 0.01 L (0.04-0.35) X 10*3/uL POC Glucose (mg/dL) 146 H 323 H (75-99) mg/dL 05/03/21 05/03/21 Range/Units 07:22 11:19 WBC (4.50-10.00) X 10*3/uL MCHC (32.0-37.0) g/dL RDW (11.5-14.5) % Immature Gran # (0.00-0.04) X 10*3/uL Neutrophils # (1.80-7.70) X 10*3/uL Monocytes # (0.20-1.00) X 10*3/uL Eosinophils # (0.04-0.35) X 10*3/uL POC Glucose (mg/dL) 196 H 283 H (75-99) mg/dL Assessment and Plan Assessment: Right knee osteoarthritis Plan: 1. Right knee osteoarthritis - right total knee arthroplasty performed yester day, 05/02/2021. Patient doing well today. Incision is clean, dry, intact. 2. Appreciate medical management 3. Pain management - patient going home with Lyrica 75 mg twice a day 7 days, then Lyrica 75 mg daily 7 days; 4. GI/DVT ppx - patient going home with senna; aspirin 81 mg twice a day 30 days 5. Encourage incentive spirometer use 6. Discharge planning - plan to discharge home today, 05/03/2021 Time with Patient: Less than 30
== END 2021-05-03 14:10 | disposition home health service (06) ==
LOC: OR 10:41 → 4SSUR 13:11 → OR 05-03 14:10
PROVIDERS: ATTEND Orthopaedic Surgery
DX: M17.11 Unilateral primary osteoarthritis, right knee (principal); E11.9 Type 2 diabetes mellitus without complications; D50.9 Iron deficiency anemia, unspecified; I10 Essential (primary) hypertension; E78.5 Hyperlipidemia, unspecified; Z90.49 Acquired absence of other specified parts of digestive tract; Z96.652 Presence of left artificial knee joint; Z79.84 Long term (current) use of oral hypoglycemic drugs; Z79.82 Long term (current) use of aspirin; Z79.899 Other long term (current) drug therapy; R00.0 Tachycardia, unspecified; Z86.718 Personal history of other venous thrombosis and embolism
CPT/HCPCS: 97161; 64999; 64448; 76942; 85025; 88300; 73560; 27447; C1776; C1713; J2250; J1100; J0690 ×3; J2405; J3010; J1650 ×2; J2795 ×2; J2704; J1170 ×2